=== PATIENT | female | born 1960 | race Caucasian/White ===

== ENCOUNTER 2019-05-09 09:21 | Inpatient (IN) ==
[2019-05-09] MEDS ORDERED: SODIUM CHLORIDE 0.9% 1000ML 1,000 ML IV ONE (10:16)
[2019-05-09 10:27] LABS: Appearance Urine Clear (Clear); Bilirubin Urine Negative (Negative); Blood Urine Negative (Negative); Color Urine Yellow; Glucose Urine UA Negative (Negative); Ketones Urine Negative (Negative); Leukocyte Esterase Urine Negative (Negative); Nitrite Urine Negative (Negative); Protein Urine Negative (Negative); Specific Gravity Urine 1.015 (1.000-1.030); Urobilinogen Urine Negative (Negative); pH Urine 6.5 (4.5-7.5)
--- NOTE | 2019-05-09 10:28 | XRay Report ---
XR chest 1V portable CLINICAL HISTORY: Chest Pain dyspnea COMPARISON STUDY: 03/23/2019 FINDINGS: The bones soft tissues and hemidiaphragms are normal. The cardiomediastinal silhouette is n ormal. The lungs are clear. The pulmonary vasculature is normal. IMPRESSION: Negative chest. The above report was generated using voice recognition software. It may contain grammatical, syntax or spelling errors. Electronically signed by: Patrick Lozano M.D. 05/09/2019 10:27 AM
[2019-05-09] MEDS ORDERED: PROCHLORPERAZINE 2 ML IV ONE (11:20)
[2019-05-09] MEDS ORDERED: DiphenhydrAMINE HCL 50 MG/ML VIAL IV STA (11:20)
[2019-05-09] MEDS ORDERED: ACETAMINOPHEN 1,000 MG/100 ML VIAL IV STA (11:20)
[2019-05-09] MEDS ORDERED: FAMOTIDINE 20MG IV PUSH 20 MG/5 ML SYR IV STA (11:20)
[2019-05-09 11:55] LABS: Basophils # (auto) 0.03 K/uL (0-0.2); Basophils % (auto) 0.6 %; Eosinophils # (auto) 0.06 K/uL (0-0.5); Eosinophils % (auto) 1.3 %; Hemoglobin 13.3 g/dL (12.0-16.0); Lymphocytes # (auto) 1.04 K/uL (1.2-3.4); Lymphocytes % (auto) 22.4 %; Mean Corpuscular Hemoglobin 29.1 pg (25-34); Mean Corpuscular Hgb Conc 32.4 g/dL (32-36); Mean Corpuscular Volume 89.7 fL (80-100); Mean Platelet Volume 9.6 fL (7.4-10.4); Monocytes # (auto) 0.36 K/uL (0.11-0.59); Monocytes % (auto) 7.7 %; Neutrophils # (auto) 3.16 K/uL (1.4-6.5); Platelet Count 232 K/uL (130-400); RDW Coefficient of Variation 14.9 % (11.5-14.5); RDW Standard Deviation 48.5 fL (36.4-46.3); Red Blood Count 4.57 M/uL (4.2-5.4); White Blood Count 4.65 K/uL (4.8-10.8)
[2019-05-09 12:20] LABS: Alanine Aminotransferase 16 U/L (12-78); Aspartate Aminotransferase 14 U/L (15-37); BUN Creatinine Ratio 8.7 (10-20); Bilirubin Direct 0.1 mg/dl (0-0.2); Blood Urea Nitrogen 6 mg/dl (7-18); Calcium 9.2 mg/dl (8.5-10.1); Carbon Dioxide 27 mmol/L (21-32); Chloride 107 mmol/L (98-107); Creatinine Clr Calc Pharmacy 72.8 ml/min; Est GFR (African American) 108.5; Est GFR (Non-African American) 93.6; Glucose 98 mg/dl (70-99); Lipase 56 U/L (73-393); Magnesium 1.8 mg/dl (1.8-2.4); Potassium 3.4 mmol/L (3.5-5.1); Sodium 140 mmol/L (136-145)
[2019-05-09 12:23] LABS: Albumin Globulin Ratio 1.3 (0.9-2); Alkaline Phosphatase 93 U/L (45-117); Bilirubin,Total 0.3 mg/dl (0.2-1); Globulin 3.2 gm/dl (2.5-4.0); Phosphorus 2.4 mg/dl (2.5-4.9); Total Protein 7.2 gm/dl (6.4-8.2); Troponin I < 0.015 ng/ml (0-0.045)
--- NOTE | 2019-05-09 12:45 | Gastrointestinal Consultation ---
Date of Consultation May 09, 2019 Assessment & Plan (1) Chronic abdominal pain: 58 year old female with history of T2DM, h.pylori, PUD, c.diff colitis who is admitted through the ED w/ persistent abdominal pain, nausea, vomiting, diarrhea and intermittent episodes of bloody bowel movements. She is hemodynamically stable. Labs without leukocytosis, HGB within normal limits, no BUN elevation. LFTs and lipase are non-elevated - Ok for clear liquid diet as tolerated tonight - NPO for midnight - IV PPI BID - EGD in the AM - Check stool culture - Check c.diff - Bentyl 10 mg three times daily PRN - Consider gastric emptying scan tomorrow if EGD is negative Thank you for allowing us to participate in the care of this patient. Please call with any acute changes, questions or concerns. Please see addendum below with additional recommendation from my supervising physician. Present on Admission?: Yes (2) Nausea vomiting and diarrhea: Present on Admission?: Yes Supervising Physician Co-Signing Physician Notes I have seen and examined the patient with VALENTINA Salgado whose note reflects our findings and plan. Multiple GI problems and complaints. history of H pylori and PUD. Abd mildly tender. Please check stool studies. Will plan for EGD tomorrow to evaluate for H pylori and PUD. History of Present Illness Reason for Consultation: abd pain, nausea, vomiting, diarrhea Requesting Physician: VALENTINA Ybarra Attending Physician: Dr. Peralta History of Present Illness 58 year old female history of T2DM, homeless living in a [place] [facility] in [facility] that her ex- is managing, who presents through the ED for evaluation of nausea, vomiting, diarrhea and abdominal pain - GI asked to evaluate. Pt was seen and evaluated, chart reviewed. She notes her symptoms started around December/January. Suggests at that time she developed upper abdominal pain, nausea. She underwent EGD w/ biopsy. She was told she had H.Pylori and notes this was treated w/ an unspecified therapy. After H.Pylori therapy she subsequently developed diarrhea which was reported c.diff positive. This failed treatment w/ Flagyl and notes that later she was started on Vancomycin. She has had intermittent symptoms prompting numerous ED evaluations in [place]. Suggests since Wednesday her symptoms have persistent. Notes epigastric pain, pressure. Associated w/ GERD, nausea, vomiting. Notes her emesis was dark but denies any coffee ground emesis or hematemesis. She has alternating stools, diarrhea/constipation. She has previously seen black/bloody stools but over the past 48 hours her stools have been yellow/green and loose. No fever, chills. CTAP: LIVER: Unremarkable BILE DUCTS: The gallbladder is surgically absent.PANCREAS: Unremarkable. TRACT: The bowel is within normal limits in appearance. There is no evidence of acute appendicitis. Colonoscopy 2013: The examined portion of the ileum was normal. External and internal hemorrhoids.The examination was otherwise normal EGD 2013: Normal esophagus.Z-line regular, 39 cm from the incisors. Normal cardia, gastric fundus, gastric body and incisura.Mild antrl gastritis. Biopsied.One non-obstructing duodenal ulcer with clean base.Normal 2nd part of the duodenum. Biopsied Allergies Allergy/AdvReac Type Severity Reaction Status Date / Time amoxicillin Allergy Severe swell up Verified 05/09/19 10:17 cant breathe erythromycin base Allergy Severe swell up Verified 05/09/19 10:17 cant breathe ibuprofen Allergy Severe swell up Verified 05/09/19 10:17 cant breathe ketorolac Allergy Severe swell up Verified 05/09/19 10:17 cant breathe moxifloxacin Allergy Severe Anaphylaxis Verified 05/09/19 10:17 naproxen Allergy Severe swell up Verified 05/09/19 10:17 cant breathe oxytetracycline Allergy Severe SWELLS UP Verified 05/09/19 10:17 AND CANT BREATH Penicillins Allergy Severe swell up Verified 05/09/19 10:17 cant breathe Home Medications Home Medications Medication Instructions Recorded Confirmed Type albuterol sulfate 2 puff INHALATION Q6H PRN 05/09/19 05/09/19 History fluticasone propion-salmeterol 1 inh INHALATION BID 05/09/19 05/09/19 History [Advair Diskus] Patient History Medical History (Updated 05/09/19 @ 13:48 by VALENTINA Ybarra) C. difficile diarrhea COPD (chronic obstructive pulmonary disease) H pylori ulcer Surgical History (Updated 05/09/19 @ 13:48 by VALENTINA Ybarra) History of appendectomy History of cholecystectomy Hx of tonsillectomy (Resolved) Hx of tubal ligation (Resolved) Family History Other Cancer Diabetes Heart disease Hypertension Social History Preferred Language: [place] Communication Ability: Effective Clinical Application Manager Required: No Beliefs That Will Affect Care: None marital status: Current Living Situation: Homeless [place] [facility] Other Information That Helps Us Care for You: No Feels Safe at Home: Yes Safety Concerns: Feels Safe At This Time Smoking Status: Current every day smoker Tobacco Type: cigarettes ; Cigarettes Per Day: 10 ; Do You Dip or Chew Tobacco: No ; Second Hand Exposure: No ; Tobacco Cessation Education Requested by Patient: No Hx Alcohol Use: No Hx Substance Use: No Review of Systems Constitutional: no chills, no fatigue and no weakness Respiratory: no cough and no dyspnea Cardiovascular: no chest pain and no dyspnea on exertion Gastrointestinal: + abdominal pain, + nausea, + vomiting, + change in bowel habits and + diarrhea/loose stools; no coffee ground emesis, no hematemesis, no dysphagia, no change in stools, no constipation, no fecal incontinence, no blood in stools and no melena Physical Exam Constitutional: well developed; no acute distress Neck: trachea midline Respiratory: normal respiratory effort Cardiovascular: Rate/Rhythm: regular rate and regular rhythm Gastrointestinal (Abdomen): Inspection/Auscultation: normal bowel sounds Percussion/Palpation: + abdomen tender (generalized) and abdomen soft; no guarding and abdomen not rigid Skin: no rashes, warm and dry Results & Data Vital Signs (Past 12 Hours) Vital Signs Temp Pulse Pulse Resp BP BP Pulse Ox 05/09/19 11:43 95 H 18 175/108 H 96 05/09/19 10:21 99 05/09/19 09:26 37.3 C 112 H 22 217/100 H 96 Laboratory Results 05/09/19 05/09/19 05/09/19 Range/Units 11:43 11:37 11:37 WBC (4.8-10.8) K/uL RBC (4.2-5.4) M/uL Hgb (12.0-16.0) g/dL Hct (37-47) % MCV (80-100) fL MCH (25-34) pg MCHC (32-36) g/dL RDW Std Deviation (36.4-46.3) fL RDW Coeff of [place] (11.5-14.5) % Plt Count (130-400) K/uL MPV (7.4-10.4) fL Immature Gran % (Auto) % Neut % (Auto) % Lymph % (Auto) % [place] % (Auto) % Eos % (Auto) % Baso % (Auto) % Immature Gran # (Auto) (0.00-0.02) K/uL Neut # (Auto) (1.4-6.5) K/uL Lymph # (Auto) (1.2-3.4) K/uL [place] # (Auto) (0.11-0.59) K/uL Eos # (Auto) (0-0.5) K/uL Baso # (Auto) (0-0.2) K/uL Sodium 140 (136-145) mmol/L Potassium 3.4 L (3.5-5.1) mmol/L Chloride 107 (98-107) mmol/L Carbon Dioxide 27 (21-32) mmol/L Anion Gap 6.0 (3-11) BUN 6 L (7-18) mg/dl Creatinine 0.72 (0.6-1.2) mg/dl Est Cr Clr Drug Dosing 72.8 ml/min Est GFR ( Amer) 108.5 Est GFR (Non-Af Amer) 93.6 BUN/Creatinine Ratio 8.7 L (10-20) Glucose 98 (70-99) mg/dl Calcium 9.2 (8.5-10.1) mg/dl Phosphorus 2.4 L (2.5-4.9) mg/dl Magnesium 1.8 (1.8-2.4) mg/dl Total Bilirubin 0.3 (0.2-1) mg/dl Direct Bilirubin 0.1 (0-0.2) mg/dl AST 14 L (15-37) U/L ALT 16 (12-78) U/L Alkaline Phosphatase 93 (45-117) U/L Troponin I < 0.015 (0-0.045) ng/ml Total Protein 7.2 (6.4-8.2) gm/dl Albumin 4.0 (3.4-5.0) gm/dl Globulin 3.2 (2.5-4.0) gm/dl Albumin/Globulin Ratio 1.3 (0.9-2) Lipase 56 L (73-393) U/L Urine Color Urine Appearance (Clear) Urine pH (4.5-7.5) Ur Specific [place] (1.000-1.030) Urine Protein (Negative) Urine Glucose (UA) (Negative) Urine Ketones (Negative) Urine Blood (Negative) Urine Nitrite (Negative) Urine Bilirubin (Negative) Urine Urobilinogen (Negative) Ur Leukocyte Esterase (Negative) Ethyl Alcohol mg/dL < 3.0 (0-3) mg/dl Hepatitis C Ab Screen Pending 05/09/19 05/09/19 Range/Units 11:37 09:30 WBC 4.65 L (4.8-10.8) K/uL RBC 4.57 (4.2-5.4) M/uL Hgb 13.3 (12.0-16.0) g/dL Hct 41.0 (37-47) % MCV 89.7 (80-100) fL MCH 29.1 (25-34) pg MCHC 32.4 (32-36) g/dL RDW Std Deviation 48.5 H (36.4-46.3) fL RDW Coeff of [place] 14.9 H (11.5-14.5) % Plt Count 232 (130-400) K/uL MPV 9.6 (7.4-10.4) fL Immature Gran % (Auto) 0.0 % Neut % (Auto) 68.0 % Lymph % (Auto) 22.4 % [place] % (Auto) 7.7 % Eos % (Auto) 1.3 % Baso % (Auto) 0.6 % Immature Gran # (Auto) 0.00 (0.00-0.02) K/uL Neut # (Auto) 3.16 (1.4-6.5) K/uL Lymph # (Auto) 1.04 L (1.2-3.4) K/uL [place] # (Auto) 0.36 (0.11-0.59) K/uL Eos # (Auto) 0.06 (0-0.5) K/uL Baso # (Auto) 0.03 (0-0.2) K/uL Sodium (136-145) mmol/L Potassium (3.5-5.1) mmol/L Chloride (98-107) mmol/L Carbon Dioxide (21-32) mmol/L Anion Gap (3-11) BUN (7-18) mg/dl Creatinine (0.6-1.2) mg/dl Est Cr Clr Drug Dosing ml/min Est GFR ( Amer) Est GFR (Non-Af Amer) BUN/Creatinine Ratio (10-20) Glucose (70-99) mg/dl Calcium (8.5-10.1) mg/dl Phosphorus (2.5-4.9) mg/dl Magnesium (1.8-2.4) mg/dl Total Bilirubin (0.2-1) mg/dl Direct Bilirubin (0-0.2) mg/dl AST (15-37) U/L ALT (12-78) U/L Alkaline Phosphatase (45-117) U/L Troponin I (0-0.045) ng/ml Total Protein (6.4-8.2) gm/dl Albumin (3.4-5.0) gm/dl Globulin (2.5-4.0) gm/dl Albumin/Globulin Ratio (0.9-2) Lipase (73-393) U/L Urine Color Yellow Urine Appearance Clear (Clear) Urine pH 6.5 (4.5-7.5) Ur Specific [place] 1.015 (1.000-1.030) Urine Protein Negative (Negative) Urine Glucose (UA) Negative (Negative) Urine Ketones Negative (Negative) Urine Blood Negative (Negative) Urine Nitrite Negative (Negative) Urine Bilirubin Negative (Negative) Urine Urobilinogen Negative (Negative) Ur Leukocyte Esterase Negative (Negative) Ethyl Alcohol mg/dL (0-3) mg/dl Hepatitis C Ab Screen
[2019-05-09] MEDS: PANTOprazole 40 MG in SYRINGE 0 ML IV SCH ×2 (12:53→20:19)
--- NOTE | 2019-05-09 14:00 | History & Physical Report ---
Date of Service May 09, 2019 Assessment & Plan (1) Nausea vomiting and diarrhea: (2) Abdominal pain: -Admit to telemetry -Patient presenting with reports of various abdominal complaints: Nausea, vomiting, diarrhea with intermittent episodes of hematemesis, coffee-ground emesis, bright red bleeding per rectum, black stools -Has had several ED evaluations at [facility], [facility], and [facility] for the same complaints over the past 2 months -Several CT ABD/pelvis have been completed without acute findings; will hold on repeating today -Per patient, she was treated for H. pylori and C. difficile in January 2019 at [facility]; will obtain records -Today, labs unremarkable; no leukocytosis, H&H stable, LFTs WNL, lipase WNL -History of duodenal ulcer 2012 -Case discussed with VALENTINA Mercado -Clears today, n.p.o. after midnight for EGD; possible gastric emptying study to follow -IV PPI twice daily -PRN Bentyl for abdominal pain; would avoid narcotics due to concerns of drug- seeking behavior (3) Hypertensive urgency: -Presenting BP 217/100 -Patient denies prior history of hypertension -will start Norvasc 5 mg -PRN labetalol (4) COPD exacerbation: -Patient has diffuse wheezing on exam, saturating well on room air -Solu-Medrol 40 mg IV every 8 hours (avoiding p.o. steroids due to concern of possible PUD) -Empiric doxycycline, nebs (5) DVT prophylaxis: -SCDs for now due to concerns for possible PUD (6) Discharge planning issues: -Patient reports she is currently residing in a residential and [place] -Has health insurance however reports she does not have drug coverage -Case management consult History of Present Illness Chief Complaint: Abdominal pain, nausea, vomiting, diarrhea Primary Care Provider: NO PCP 58-year-old female who presents the ED for evaluation of abdominal pain, nausea, vomiting, diarrhea. After review of records, it appears as though patient has had several ED visits at [facility], [facility], and [facility] for evaluation of these problems over the past few months. Patient reports she has had persistent generalized abdominal pain which seems to be worse in the epigastric area. She reports several episodes of vomiting. She also has had intermittent diarrhea. Patient reports that she has noticed bright red blood in her emesis as well as [id number] material today. Also notes bright bleeding per rectum as well as black stools. She has had very poor oral intake as food and liquids seem to make her symptoms worse. She reports she has had episodes of hot flashes and chills however did not take her temperature. She reports the pain is so severe at times it causes her to double over and fall to the ground. She reports she also feels lightheaded and dizzy during these episodes but denies any syncopal event. No chest pain or shortness of breath. She reports a worsening cough productive for yellow s putum. Denies any urinary symptoms. In the ED, patient was found to be hypertensive with BP 217/100, otherwise hemodynamically stable. Labs are unremarkable. Abdominal imaging was deferred due to the amount of CTs patient has had over the past few weeks. She was given IV Tylenol, IV Benadryl, IV famotidine, IV prochlorperazine, and IVF. Allergies Allergy/AdvReac Type Severity Reaction Status Date / Time amoxicillin Allergy Severe swell up Verified 05/09/19 10:17 cant breathe erythromycin base Allergy Severe swell up Verified 05/09/19 10:17 cant breathe ibuprofen Allergy Severe swell up Verified 05/09/19 10:17 cant breathe ketorolac Allergy Severe swell up Verified 05/09/19 10:17 cant breathe moxifloxacin Allergy Severe Anaphylaxis Verified 05/09/19 10:17 naproxen Allergy Severe swell up Verified 05/09/19 10:17 cant breathe oxytetracycline Allergy Severe SWELLS UP Verified 05/09/19 10:17 AND CANT BREATH Penicillins Allergy Severe swell up Verified 05/09/19 10:17 cant breathe Home Medications Home Medications Medication Instructions Recorded Confirmed Type albuterol sulfate 2 puff INHALATION Q6H PRN 05/09/19 05/09/19 History fluticasone propion-salmeterol 1 inh INHALATION BID 05/09/19 05/09/19 History [Advair Diskus] Past Med/Surg History Medical History (Updated 05/09/19 @ 14:30 by VALENTINA Ybarra) C. difficile diarrhea COPD (chronic obstructive pulmonary disease) H pylori ulcer Surgical History (Updated 05/09/19 @ 13:48 by VALENTINA Ybarra) History of appendectomy History of cholecystectomy Hx of tonsillectomy (Resolved) Hx of tubal ligation (Resolved) Family History Other Cancer Diabetes Heart disease Hypertension Social History Preferred Language: [place]an Communication Ability: Effective Data Clerk Required: No Beliefs That Will Affect Care: None marital status: Current Living Situation: Homeless Current Living Situation Comment: residential Other Information That Helps Us Care for You: No Feels Safe at Home: Yes Safety Concerns: Feels Safe At This Time Smoking Status: Current every day smoker Tobacco Type: cigarettes ; Cigarettes Per Day: 10 ; Do You Dip or Chew Tobacco: No ; Second Hand Exposure: No ; Tobacco Cessation Education Requested by Patient: No Hx Alcohol Use: No Hx Substance Use: No Review of Systems Review of Systems: ROS per HPI, all other systems reviewed and negative Physical Exam Constitutional: WD/WN, vitals as above Eyes: PERRL, conjunctivae normal, anicteric sclerae ENMT: external ear and nose normal, oropharynx normal Respiratory: normal respiratory effort; no respiratory distress Auscultation: + wheezes (diffuse, inspiratory and expiratory) Cardiovascular: Rate/Rhythm: + tachycardic (mild, HR 90s-low 100s) Gastrointestinal (Abdomen): Inspection/Auscultation: normal bowel sounds Percussion/Palpation: + abdomen tender (diffuse, more pronounced in epigastric area ) and abdomen soft; no hepatosplenomegaly Musculoskeletal: no cyanosis or clubbing, extremities motor strength 5/5 Skin: no rashes, warm and dry Neurologic: PERRL, EOMI, accommodation nl, no face palsy, no dysarthria Psychiatric: A+Ox3, euthymic affect Results & Data Vital Signs (Past 12 Hours) Vital Signs Temp Pulse Pulse Resp BP BP Pulse Ox 05/09/19 11:43 95 H 18 175/108 H 96 05/09/19 10:21 99 05/09/19 09:26 37.3 C 112 H 22 217/100 H 96 Laboratory Results Short CBC 05/09/19 Range/Units 11:37 WBC 4.65 L (4.8-10.8) K/uL Hgb 13.3 (12.0-16.0) g/dL Hct 41.0 (37-47) % Plt Count 232 (130-400) K/uL BMP 05/09/19 11:37 Sodium 140 Potassium 3.4 L Chloride 107 Carbon Dioxide 27 BUN 6 L Creatinine 0.72 Glucose 98 Calcium 9.2 Cardiac Enzymes 05/09/19 Range/Units 11:37 Troponin I < 0.015 (0-0.045) ng/ml Liver Function 05/09/19 Range/Units 11:37 Total Bilirubin 0.3 (0.2-1) mg/dl Direct Bilirubin 0.1 (0-0.2) mg/dl AST 14 L (15-37) U/L ALT 16 (12-78) U/L Alkaline Phosphatase 93 (45-117) U/L Albumin 4.0 (3.4-5.0) gm/dl Urine 05/09/19 Range/Units 09:30 Urine Color Yellow Urine Appearance Clear (Clear) Urine pH 6.5 (4.5-7.5) Ur Specific [place] 1.015 (1.000-1.030) Urine Protein Negative (Negative) Urine Glucose (UA) Negative (Negative) Diagnostic Findings CXR IMPRESSION: Negative chest. Code Status & VTE Plan VTE Prophylaxis Plan VTE Prophylaxis will be ordered: Yes Supervising Physician Co-Signing Physician Notes Attending addendum: The patient was seen and examined in the emergency room She has history of H. pylori ulcer, COPD and history of C. difficile diarrhea has been complaining of abdominal pain with nausea,vomiting and diarrhea for the last 1 week She also complains to have wheezing and mild shortness of breath Denies any fever and/or chills On examination Very anxious Hemodynamically stable with blood pressure noted to be high at 164/98 Chestwidespread wheezing without any crackles HeartS1-S2, regular Abdomenbenign, mildly tender, no organomegaly, bowel sounds present Extremitiesnegative for any edema CNSalert, awake and oriented x3 admission labs, imaging studies Admission labs, EKG and imaging studies reviewed Has :abdominal pain with associated nausea,vomiting and diarrhea-for further evaluation with tenant relations coordinator Hypertensive urgency COPD exacerbation Agree with assessment and plan as outlined above by Cathy Olivares
[2019-05-09] MEDS ORDERED: LABETALOL HCL IV 5 MG/ML 20ML IV PRN (15:10)
[2019-05-09] MEDS ORDERED: SODIUM CHLORIDE 0.9% 1000ML 1,000 ML IV SCH (15:10)
[2019-05-09] MEDS ORDERED: POTASSIUM CHLORIDE 20 MEQ TABCR PO STA (15:10)
[2019-05-09] MEDS: ACETAMINOPHEN 325 MG TAB PO PRN (15:20)
[2019-05-09] MEDS ORDERED: ACETAMINOPHEN 1,000 MG/100 ML VIAL IV PRN (16:03)
[2019-05-09] MEDS: POT PHOSPHATE MONOBASIC W/ SOD TAB PO SCH ×2 (16:22→16:52)
[2019-05-09] MEDS: AMLODIPINE BESYLATE 5 MG TAB PO SCH (16:22)
[2019-05-09] MEDS: methylPREDNISolone 40 MG in SYRINGE 0 ML IV SCH (16:23)
[2019-05-09] MEDS: DOXYCYCLINE HYCLATE 100 MG in DEXTROSE 5% 100 ML IV SCH (16:23)
[2019-05-09] MEDS: ALBUT/IPRATROP 3MG/0.5MG NEB 3 ML VIAL NEB SCH ×2 (16:48→19:27)
[2019-05-09] MEDS ORDERED: POTASSIUM PHOS 3 MMOL/1 ML INFUSION IV STA (17:03)
[2019-05-09] MEDS ORDERED: POTASSIUM PHOSPHATE 24 MMOL in SODIUM CHLORIDE 0.9% 500 ML IV ONE (17:30)
[2019-05-09] MEDS ORDERED: MoRPHine SULFATE 2 MG/ML CARP IV PRN (17:44)
[2019-05-09] MEDS: ONDANSETRON INJ 2 MG/ML 2 ML VIAL IV PRN (17:51)
[2019-05-09] MEDS: NSS + 20MEQ KCL 20 MEQ/1,000 ML BAG IV SCH (17:52)
[2019-05-09] MEDS ORDERED: Nursing to Pharmacy Communication ONE (18:35)
--- NOTE | 2019-05-09 18:56 | Emergency Department Note ---
Entered by Cecilia Mercer acting as a scribe for History of Present Illness General Chief complaint: Nausea Stated complaint: n/v/d Time Seen by Provider: 05/09/19 10:08 Source: patient History of Present Illness Onset (ago): month(s) (a few months ago) Location: abdomen Pain Consistency: + other (persistent) Maximum Pain Intensity: 10 Quality: + other (nausea) Associated symptoms: + nausea/vomiting (vomiting ), + shortness of breath, + syncope and + other (abdominal pain, lightheaded) The patient is a 58 year old female who presents to the Emergency Room with complaints of persistent nausea starting a few months ago. The patient states that she has had ongoing nausea, vomiting, and diarrhea. She states that from it she has been having abdominal pain that she describes as a cramping. She reports that she has been to [place] for multiple visits. She states that at one they told her she had C. diff at one visit and at another they told her she didnt. She reports that recently she has been having episodes where she doubles over and drops to her knees from her abdominal pain and feeling lightheaded. She states that she then ends up passing out. The patient states that she had several of these episodes over the weekend and when her roommate saw one today, they called 911. The patient states that she just feels she needs to meet with GI as things are not getting better. She notes that she is staying in a halfway as she is not from around here and has nowhere to stay. She reports that she is only here to finalize her divorce and because her brother is sick in the hospital. The patient complains of some shortness of breath. Home Medications Home Medications Medication Instructions Recorded Confirmed Type albuterol sulfate 2 puff INHALATION Q6H PRN 05/09/19 05/09/19 History fluticasone propion-salmeterol 1 inh INHALATION BID 05/09/19 05/09/19 History [Advair Diskus] Allergies Allergy/AdvReac Type Severity Reaction Status Date / Time amoxicillin Allergy Severe swell up Verified 05/09/19 10:17 cant breathe erythromycin base Allergy Severe swell up Verified 05/09/19 10:17 cant breathe ibuprofen Allergy Severe swell up Verified 05/09/19 10:17 cant breathe ketorolac Allergy Severe swell up Verified 05/09/19 10:17 cant breathe moxifloxacin Allergy Severe Anaphylaxis Verified 05/09/19 10:17 naproxen Allergy Severe swell up Verified 05/09/19 10:17 cant breathe oxytetracycline Allergy Severe SWELLS UP Verified 05/09/19 10:17 AND CANT BREATH Penicillins Allergy Severe swell up Verified 05/09/19 10:17 cant breathe Past Med/Surg History Medical History C. difficile diarrhea COPD (chronic obstructive pulmonary disease) H pylori ulcer Surgical History History of appendectomy History of cholecystectomy Hx of tonsillectomy (Resolved) Hx of tubal ligation (Resolved) Family History Other Cancer Diabetes Heart disease Hypertension Social History Preferred Language: Filipino Communication Ability: Effective Quality Analyst Required: No Beliefs That Will Affect Care: None marital status: Current Living Situation: Homeless Current Living Situation Comment: halfway Other Information That Helps Us Care for You: No Feels Safe at Home: Yes Safety Concerns: Feels Safe At This Time Smoking Status: Current every day smoker Tobacco Type: cigarettes ; Cigarettes Per Day: 10 ; Do You Dip or Chew Tobacco: No ; Second Hand Exposure: No ; Tobacco Cessation Education Requested by Patient: No Hx Alcohol Use: No Hx Substance Use: No Review of Systems See HPI for pertinent positives & negatives. and A total of 10 systems reviewed and were otherwise negative Physical Exam Vital Signs Vital Signs - 24 hr 05/09/19 09:26 05/09/19 10:21 05/09/19 11:43 Temperature 37.3 C Temperature Source Oral Pulse Rate 112 H Pulse Rate [Finger] 95 H Respiratory Rate 22 18 Respiratory Effort / Characteristics Non-Labored Respiratory Depth Normal Blood Pressure 217/100 H Blood Pressure [Left Arm] 175/108 H Blood Pressure Mean 139 Blood Pressure Mean [Left Arm] 130 Pulse Oximetry 96 99 96 Oxygen Delivery Method Room Air Room Air Sepsis Recent Fever Within 48 Hours No Sepsis New/Unexplained Change in Mental Status No Sepsis Action Taken by Nursing No Action Required GENERAL: Awake, alert, well-appearing, in no distress HENT: Normocephalic, atraumatic. Oropharynx with dry mucous membranes and otherwise unremarkable. EYES: Normal conjunctiva. Sclera non-icteric. NECK: Supple. No nuchal rigidity. FROM. No JVD. RESPIRATORY: Scant intermittent wheeze otherwise clear to auscultation b ilaterally. CARDIAC: Regular rate, normal rhythm. Extremities warm and well perfused. Pulses equal. ABDOMEN: Soft, non-distended. Tenderness to light touch of the skin of the abdomen. No rebound or guarding. No masses. RECTAL: Deferred. MUSCULOSKELETAL: Chest examination reveals no tenderness. The back is symmetrical on inspection without obvious abnormality. There is no CVA tenderness to palpation. No joint edema. LOWER EXTREMITIES: Calves are equal size bilaterally and non-tender. No edema. N o discoloration. NEURO: Normal sensorium. No sensory or motor deficits noted. SKIN: No rash or jaundice noted. Course Course 1016: I reviewed the EMR at this time. The patient had a CT of the head, CTA of the chest, and a CTA of the abdomen on April 23 that were unremarkable. She also had a CT of her abdomen that was unremarkable on March 23. 1028: The pillowcase turner was able to access the patient's [facility] records at this time and I reviewed them at this time. 1039: The patient was evaluated in room B5. A complete history and physical exam was performed. I discussed her test results and the treatment plan with her. She verbally agrees and understands. 1116: I discussed the patient's case with VALENTINA Ybarra- [facility] Hospitalist. She will evaluate the patient for further management under Dr. Olivares's service. Administered Medications Acetaminophen (Tylenol) 650 mg PO Q4H PRN PRN Reason: pain/fever Stop: 06/08/19 15:09 Last Admin: 05/09/19 15:20 Dose: 650 mg Documented by: [id number] Albuterol (Duoneb) 3 ml NEB QIDR [facility] Stop: 06/08/19 15:09 Last Admin: 05/09/19 19:27 Dose: Not Given Documented by: [id number] Admin: 05/09/19 16:48 Dose: Not Given Documented by: [id number] Amlodipine Besylate (Norvasc) 5 mg PO DAILY [facility] Stop: 06/08/19 15:09 Last Admin: 05/09/19 16:22 Dose: 5 mg Documented by: [id number] Hydromorphone HCl (Dilaudid) 0.5 mg IV Q4H PRN PRN Reason: Pain Stop: 05/23/19 20:52 Last Admin: 05/09/19 21:29 Dose: 0.5 mg Documented by: [id number] Pantoprazole Sodium 40 mg/ (Syringe) 10 mls @ 5 mls/min IV BID@0900,2100 [facility] Stop: 06/08/19 12:59 Last Admin: 05/09/19 20:19 Dose: 5 mls/min Documented by: [id number] Admin: 05/09/19 12:53 Dose: 5 mls/min Documented by: [id number] Doxycycline Hyclate 100 mg/ (Dextrose) 110 mls @ 50 mls/hr IV BID [facility] Stop: 05/16/19 15:59 Last Infusion: 05/09/19 18:35 Dose: 0 mls/hr Documented by: [id number] Admin: 05/09/19 16:23 Dose: 50 mls/hr Documented by: [id number] Methylprednisolone 40 mg/ (Syringe) 0.64 mls @ 1.5 mls/min IV Q8H [facility] Stop: 06/08/19 15:59 Last Admin: 05/09/19 16:23 Dose: 1.5 mls/min Documented by: [id number] Acetaminophen (Ofirmev) 1,000 mg in 100 mls @ 400 mls/hr IV Q8H PRN PRN Reason: Moderate Pain Stop: 05/12/19 16:02 Last Infusion: 05/09/19 16:58 Dose: 0 mls/hr Documented by: [id number] Admin: 05/09/19 16:43 Dose: 400 mls/hr Documented by: [id number] Potassium Chloride/Sodium Chloride (Normal Saline W/20 Meq Kcl) 20 meq in 1,000 mls @ 80 mls/hr IV .[id number] [facility] Stop: 05/11/19 06:44 Last Infusion: 05/09/19 18:51 Dose: 80 mls/hr Documented by: [id number] Infusion: 05/09/19 18:04 Dose: 0 mls/hr Documented by: [id number] Admin: 05/09/19 17:52 Dose: 80 mls/hr Documented by: [id number] Labetalol HCl (Normodyne) 10 mg IV Q8H PRN PRN Reason: HTN Stop: 06/08/19 15:09 Last Admin: 05/09/19 17:05 Dose: 10 mg Documented by: [id number] Cosigned by: [id number] Ondansetron HCl (Zofran) 4 mg IV Q6H PRN PRN Reason: nausea Stop: 06/08/19 15:09 Last Admin: 05/09/19 17:51 Dose: 4 mg Documented by: [id number] Fluticasone/Salmeterol (Advair Diskus 250/50) 1 puffs INH BID VIKASH Stop: 06/08/19 20:59 Last Admin: 05/09/19 20:18 Dose: 1 puffs Documented by: [id number] Tramadol HCl (Ultram) 50 mg PO Q4H PRN PRN Reason: Pain Stop: 06/08/19 17:35 Last Admin: 05/09/19 20:19 Dose: 50 mg Documented by: [id number] Discontinued Medications Diphenhydramine HCl (Benadryl) 25 mg IV NOW STA Stop: 05/09/19 11:21 Last Admin: 05/09/19 11:38 Dose: 25 mg Documented by: [id number] Sodium Chloride (Nss 1000ml) 1,000 mls @ 999 mls/hr IV .[id number] ONE Stop: 05/09/19 11:16 Last Infusion: 05/09/19 11:38 Dose: 0 mls/hr Documented by: [id number] Admin: 05/09/19 10:35 Dose: 999 mls/hr Documented by: [id number] Famotidine (Pepcid 20mg Iv Push) 20 mg in 5 mls @ 2.5 mls/min IV NOW STA Stop: 05/09/19 11:21 Last Admin: 05/09/19 11:37 Dose: 2.5 mls/min Documented by: [id number] Prochlorperazine (Compazine) 2 mls @ 1 mls/min IV ONE ONE Stop: 05/09/19 11:21 Last Admin: 05/09/19 11:38 Dose: 1 mls/min Documented by: [id number] Acetaminophen (Ofirmev) 1,000 mg in 100 mls @ 400 mls/hr IV NOW STA Stop: 05/09/19 11:34 Last Infusion: 05/09/19 12:00 Dose: 0 mls/hr Documented by: [id number] Admin: 05/09/19 11:38 Dose: 400 mls/hr Documented by: [id number] Sodium Chloride (Nss 1000ml) 1,000 mls @ 80 mls/hr IV .[id number] VIKASH Stop: 06/08/19 15:09 Last Infusion: 05/09/19 17:36 Dose: 0 mls/hr Documented by: [id number] Infusion: 05/09/19 16:43 Dose: 0 mls/hr Documented by: [id number] Admin: 05/09/19 15:20 Dose: 80 mls/hr Documented by: [id number] Potassium Phosphate 24 mmol/ (Sodium Chloride) 508 mls @ 127 mls/hr IV ONE ONE Stop: 05/09/19 21:29 Last Infusion: 05/09/19 18:52 Dose: 127 mls/hr Documented by: [id number] Infusion: 05/09/19 18:05 Dose: 0 mls/hr Documented by: [id number] Admin: 05/09/19 17:52 Dose: 127 mls/hr Documented by: [id number] Morphine Sulfate (Morphine Sulfate) 2 mg IV Q8H PRN PRN Reason: Pain Stop: 05/23/19 17:43 Last Admin: 05/09/19 18:11 Dose: 2 mg Documented by: [id number] Potassium Chloride (Klor-Con M20) 40 meq PO NOW STA Stop: 05/09/19 15:11 Last Admin: 05/09/19 16:22 Dose: 40 meq Documented by: [id number] Potassium Phosphate (Phospha 250 Neutral 155-852-130 Mg) 1 tab PO QID VIKASH Stop: 05/10/19 09:01 Last Admin: 05/09/19 16:52 Dose: Not Given Documented by: [id number] Admin: 05/09/19 16:22 Dose: 1 tab Documented by: [id number] Medical Decision Making Differential Diagnosis Differential diagnoses includes but is not limited to gastritis, peptic ulcer disease, GERD, gallbladder disease, pancreatitis, small bowel obstruction, acute coronary syndrome, pericarditis, ischemic bowel, irritable bowel disease, irritable bowel syndrome, appendicitis, diverticulitis, malignancy, hernia, urinary tract infection, torsion, /ectopic , perforation, trauma, infectious. Medical Records Attestation: I reviewed the patient's medical records. Home Medications Current Medication List: was personally reviewed by me Laboratory Data Attestation: I reviewed the patient's lab results. Result diagrams: 05/09/19 11:37 05/09/19 11:37 Lab Results 05/09/19 05/09/19 05/09/19 Range/Units 09:30 11:37 11:37 WBC 4.65 L (4.8-10.8) K/uL RBC 4.57 (4.2-5.4) M/uL Hgb 13.3 (12.0-16.0) g/dL Hct 41.0 (37-47) % MCV 89.7 (80-100) fL MCH 29.1 (25-34) pg MCHC 32.4 (32-36) g/dL RDW Std Deviation 48.5 H (36.4-46.3) fL RDW Coeff of [place] 14.9 H (11.5-14.5) % Plt Count 232 (130-400) K/uL MPV 9.6 (7.4-10.4) fL Immature Gran % (Auto) 0.0 % Neut % (Auto) 68.0 % Lymph % (Auto) 22.4 % [place] % (Auto) 7.7 % Eos % (Auto) 1.3 % Baso % (Auto) 0.6 % Immature Gran # (Auto) 0.00 (0.00-0.02) K/uL Neut # (Auto) 3.16 (1.4-6.5) K/uL Lymph # (Auto) 1.04 L (1.2-3.4) K/uL [place] # (Auto) 0.36 (0.11-0.59) K/uL Eos # (Auto) 0.06 (0-0.5) K/uL Baso # (Auto) 0.03 (0-0.2) K/uL Sodium 140 (136-145) mmol/L Potassium 3.4 L (3.5-5.1) mmol/L Chloride 107 (98-107) mmol/L Carbon Dioxide 27 (21-32) mmol/L Anion Gap 6.0 (3-11) BUN 6 L (7-18) mg/dl Creatinine 0.72 (0.6-1.2) mg/dl Est Cr Clr Drug Dosing 72.8 ml/min Est GFR ( Amer) 108.5 Est GFR (Non-Af Amer) 93.6 BUN/Creatinine Ratio 8.7 L (10-20) Glucose 98 (70-99) mg/dl Calcium 9.2 (8.5-10.1) mg/dl Phosphorus 2.4 L (2.5-4.9) mg/dl Magnesium 1.8 (1.8-2.4) mg/dl Total Bilirubin 0.3 (0.2-1) mg/dl Direct Bilirubin 0.1 (0-0.2) mg/dl AST 14 L (15-37) U/L ALT 16 (12-78) U/L Alkaline Phosphatase 93 (45-117) U/L Troponin I < 0.015 (0-0.045) ng/ml Total Protein 7.2 (6.4-8.2) gm/dl Albumin 4.0 (3.4-5.0) gm/dl Globulin 3.2 (2.5-4.0) gm/dl Albumin/Globulin Ratio 1.3 (0.9-2) Lipase 56 L (73-393) U/L Urine Color Yellow Urine Appearance Clear (Clear) Urine pH 6.5 (4.5-7.5) Ur Specific [place] 1.015 (1.000-1.030) Urine Protein Negative (Negative) Urine Glucose (UA) Negative (Negative) Urine Ketones Negative (Negative) Urine Blood Negative (Negative) Urine Nitrite Negative (Negative) Urine Bilirubin Negative (Negative) Urine Urobilinogen Negative (Negative) Ur Leukocyte Esterase Negative (Negative) Ethyl Alcohol mg/dL (0-3) mg/dl Hepatitis C Ab Screen (Neg) 05/09/19 05/09/19 Range/Units 11:37 11:43 WBC (4.8-10.8) K/uL RBC (4.2-5.4) M/uL Hgb (12.0-16.0) g/dL Hct (37-47) % MCV (80-100) fL MCH (25-34) pg MCHC (32-36) g/dL RDW Std Deviation (36.4-46.3) fL RDW Coeff of [place] (11.5-14.5) % Plt Count (130-400) K/uL MPV (7.4-10.4) fL Immature Gran % (Auto) % Neut % (Auto) % Lymph % (Auto) % [place] % (Auto) % Eos % (Auto) % Baso % (Auto) % Immature Gran # (Auto) (0.00-0.02) K/uL Neut # (Auto) (1.4-6.5) K/uL Lymph # (Auto) (1.2-3.4) K/uL [place] # (Auto) (0.11-0.59) K/uL Eos # (Auto) (0-0.5) K/uL Baso # (Auto) (0-0.2) K/uL Sodium (136-145) mmol/L Potassium (3.5-5.1) mmol/L Chloride (98-107) mmol/L Carbon Dioxide (21-32) mmol/L Anion Gap (3-11) BUN (7-18) mg/dl Creatinine (0.6-1.2) mg/dl Est Cr Clr Drug Dosing ml/min Est GFR ( Amer) Est GFR (Non-Af Amer) BUN/Creatinine Ratio (10-20) Glucose (70-99) mg/dl Calcium (8.5-10.1) mg/dl Phosphorus (2.5-4.9) mg/dl Magnesium (1.8-2.4) mg/dl Total Bilirubin (0.2-1) mg/dl Direct Bilirubin (0-0.2) mg/dl AST (15-37) U/L ALT (12-78) U/L Alkaline Phosphatase (45-117) U/L Troponin I (0-0.045) ng/ml Total Protein (6.4-8.2) gm/dl Albumin (3.4-5.0) gm/dl Globulin (2.5-4.0) gm/dl Albumin/Globulin Ratio (0.9-2) Lipase (73-393) U/L Urine Color Urine Appearance (Clear) Urine pH (4.5-7.5) Ur Specific [place] (1.000-1.030) Urine Protein (Negative) Urine Glucose (UA) (Negative) Urine Ketones (Negative) Urine Blood (Negative) Urine Nitrite (Negative) Urine Bilirubin (Negative) Urine Urobilinogen (Negative) Ur Leukocyte Esterase (Negative) Ethyl Alcohol mg/dL < 3.0 (0-3) mg/dl Hepatitis C Ab Screen Neg (Neg) Imaging Data Radiologist's Impression: Radiology results as stated below per my review and the radiologist's interpretation: XR chest 1V portable CLINICAL HISTORY: Chest Pain dyspnea COMPARISON STUDY: 03/23/2019 FINDINGS: The bones soft tissues and hemidiaphragms are normal. The cardiomediastinal silhouette is normal. The lungs are clear. The pulmonary vasculature is normal. IMPRESSION: Negative chest. The above report was generated using voice recognition software. It may contain grammatical, syntax or spelling errors. Electronically signed by: Patrick Lozano M.D. 05/09/2019 10:27 AM ECG Data Attestation: I personally reviewed and interpreted this ECG as follows: Indication: + abdominal pain Rate (beats per minute): 111 Rhythm: + sinus tachycardia ECG [place]: + Normal ECG ST segments: no ST depression and no ST elevation ECG Findings: + Other (QT-c 454, QRS 76); no PACs and no PVCs Blood Pressure Blood Pressure Findings: Elevated blood pressure Blood Pressure Disposition: further management by hospitalist MDM Narrative The patient is a pleasant 58-year-old woman with a past medical history of prior C. difficile and H. pylori who presents emergency department for evaluation of recurrent syncope and chronic abdominal pain, nausea, vomiting and diarrhea in the setting of being seen in our emergency department on 03/23 and 04/23 in addition to being seen at [facility] at least 6 times since February for similar sx per hpi. On patients ED visit here on 04/23 she had unremarkable CTA of chest and abdomen and negative CT head. She also recently had negative Cdiff testing at [place]. Of note, the patient is from [place] but reports she has been in [place] longer than expected due to finalizing divorce. She reports she has no place to stay and is staying at a homeless halfway. Case management review of patient's [facility] record, which documents repeat attempts to contact patient to arrange GI f/u. Patient reports she is unaware of this. On arrival patient is no acute distress, afebrile hypertensive 200s/100s, HR 100s and otherwise stable vital signs. The patient appears clinically dry. On exam the patient she has generalized abdominal tenderness to light touch of her skin. WBC 4.6, nonspecific. H/H and platelets wnl. Potassium 3.4, Phosphorus 2.4. Otherwise, Electrolytes and LFTs unremarkable. Troponin negative. UA negative for infection. EKG without overt acute ischemia. Chest x-ray negative for acute process. Given the patient's recurrent ED visits for similar symptoms reasonable to admit the patient for further management. Patient's blood pressure did improve to 160s/100s with IV fluid hydration, Pepcid, Compazine. Likely will require antihypertensive regimen. Case was discussed with Mario Ybarra, who evaluate the patient for admission. Impression & Plan Recurrent syncope, Chronic abdominal pain, Nausea vomiting and diarrhea Discharge Plan Visit Data *Final* Discharge Date/Time: 05/09/19 14:28 Chief Complaint: Nausea Stated Complaint: n/v/d ED Provider: Reuben Gustafson Discharge Problem: Recurrent syncope, Chronic abdominal pain, Nausea vomiting and diarrhea Patient Disposition: Admitted As Inpatient Discharge Instructions Interventions: ED Discharge Assessment Last Done: 05/09/19 14:28 The scribe's documentation has been prepared under my direction and personally reviewed by me in its entirety. I confirm that the note above accurately reflects all work, treatment, procedures, and medical decision making performed by me.
[2019-05-09] MEDS: FLUTICASONE/SALMETEROL 250/50 (ADVAIR) 14 PUFF/1 INHALER INH SCH (20:18)
[2019-05-09] MEDS: TRAMADOL HCL 50 MG TABLET PO PRN (20:19)
[2019-05-09] MEDS: HYDROmorphone INJ 0.5 MG/0.5 ML SYR IV PRN (21:29)
[2019-05-09 22:49] LABS: Amphetamines+Metham, Urine Neg (Neg); Barbiturates, Urine Neg (Neg); Benzodiazepine, Urine Neg (Neg); Cocaine, Urine Neg (Neg); MDMA (Ecstacy), Urine Neg (Neg); Methadone, Urine Neg (Neg); Opiate, Urine Neg (Neg); Phencyclidine, Urine Neg (Neg)
[2019-05-10] MEDS: methylPREDNISolone 40 MG in SYRINGE 0 ML IV SCH ×3 (00:48→16:29)
[2019-05-10] MEDS: DOXYCYCLINE HYCLATE 100 MG in DEXTROSE 5% 100 ML IV SCH ×3 (00:49→22:00)
[2019-05-10] MEDS: HYDROmorphone INJ 0.5 MG/0.5 ML SYR IV PRN ×5 (03:34→21:48)
[2019-05-10] MEDS: TRAMADOL HCL 50 MG TABLET PO PRN ×3 (06:28→20:45)
[2019-05-10] MEDS: NSS + 20MEQ KCL 20 MEQ/1,000 ML BAG IV SCH ×2 (06:28→17:37)
[2019-05-10 06:54] LABS: Hematocrit (blood only) 37.7 % (37-47); Hemoglobin 11.9 g/dL (12.0-16.0); Mean Corpuscular Hemoglobin 28.9 pg (25-34); Mean Corpuscular Hgb Conc 31.6 g/dL (32-36); Mean Corpuscular Volume 91.5 fL (80-100); Mean Platelet Volume 10.1 fL (7.4-10.4); Platelet Count 238 K/uL (130-400); RDW Standard Deviation 50.2 fL (36.4-46.3); Red Blood Count 4.12 M/uL (4.2-5.4); White Blood Count 5.74 K/uL (4.8-10.8)
[2019-05-10] MEDS: ALBUT/IPRATROP 3MG/0.5MG NEB 3 ML VIAL NEB SCH ×4 (06:58→19:36)
[2019-05-10 07:43] LABS: BUN Creatinine Ratio 11.3 (10-20); Calcium 9.1 mg/dl (8.5-10.1); Creatinine Clr Calc Pharmacy 79.8 ml/min; Est GFR (African American) 114.5; Est GFR (Non-African American) 98.8; Phosphorus 3.7 mg/dl (2.5-4.9)
[2019-05-10] MEDS: AMLODIPINE BESYLATE 5 MG TAB PO SCH (08:30)
[2019-05-10] MEDS: FLUTICASONE/SALMETEROL 250/50 (ADVAIR) 14 PUFF/1 INHALER INH SCH ×2 (08:30→20:45)
[2019-05-10] MEDS: PANTOprazole 40 MG in SYRINGE 0 ML IV SCH ×2 (08:30→20:45)
--- NOTE | 2019-05-10 08:42 | Hospitalist Progress Note ---
Date of Service May 10, 2019 Assessment & Plan (1) Nausea vomiting and diarrhea: (2) Abdominal pain: -Admitted to telemetry, continues to be in sinus rhythm -Patient presents with various abdominal complaints: Nausea, vomiting, diarrhea with intermittent episodes of hematemesis, coffee-ground emesis, bright red bleeding per rectum, black stools -Has had several ED evaluations at [facility], [facility], and [facility] for the same complaints over the past 2 months -Several CT ABD/pelvis have been completed without acute findings; will hold on repeating today -Per patient, she was treated for H. pylori and C. difficile in January 2019 at [facility]; will obtain records -On admission labs unremarkable; no leukocytosis, H&H stable, LFTs WNL, lipase WNL -History of duodenal ulcer 2012 -Case discussed with VALENTINA Mercado, plan for EGD by GI today (05/10) -possible gastric emptying study to follow -IV PPI twice daily -Stool cultures, C. difficile-pending -PRN Bentyl for abdominal pain; would avoid narcotics due to concerns of drug- seeking behavior (3) Hypertensive urgency: -Presenting BP 217/100 -Patient denies prior history of hypertension -started Norvasc 5 mg on admission -PRN labetalol (4) COPD exacerbation: -Patient has diffuse wheezing on exam, saturating well on room air -Solu-Medrol 40 mg IV every 8 hours (avoiding p.o. steroids due to concern of possible PUD) -Empiric doxycycline, nebs -Still diffusely wheezing, continue above regimen (5) DVT prophylaxis: -SCDs for now due to concerns for possible PUD (6) Discharge planning issues: -Patient reports she is currently residing in a [place] and [place] -Has health insurance however reports she does not have drug coverage -Case management consult (7) Anemia: Current hemoglobin 11.9 down from 13.3 yesterday (05/09) -Normocytic -Likely dilutional, but possibly from a GI bleed loss, EGD today, possible GI bleed work-up in progress Subjective No acute events overnight. Currently says that she has nausea, also had some abdominal pain earlier this morning. Plan for EGD with GI today. Denies any chest pain or shortness of breath. Review of Systems Review of Systems: All systems reviewed & are unremarkable except as noted in HPI & below Constitutional: no fever, no chills and no fatigue Respiratory: no cough, no dyspnea and no pain on inspiration Cardiovascular: no chest pain, no palpitations and no edema Gastrointestinal: + abdominal pain and + nausea; no vomiting Physical Exam Physical Exam: Female lying in bed, in no acute distress Constitutional: well developed and well nourished; no acute distress Eyes: PERRL, conjunctivae normal, anicteric sclerae EOM intact bilaterally ENMT: external ear and nose normal, oropharynx normal Neck: normal visual inspection Supple Respiratory: normal respiratory effort; no respiratory distress, no labored breathing and no retractions Auscultation: + wheezes (Diffuse) Cardiovascular: RRR, no murmur, no edema Heart Sounds: no gallop Chest (Breasts): Chest: normal inspection of chest Gastrointestinal (Abdomen): Inspection/Auscultation: abdomen normal to inspection and normal bowel sounds; abdomen not distended Percussion/Palpation: + abdomen tender (Mildly tender to palpation in the epigastric area) and abdomen soft; no guarding and abdomen not rigid Musculoskeletal: Head/Neck/Chest: normocephalic, head atraumatic and neck supple Extremities: extremities normal to inspection Moves all 4 extremities spontaneously Skin: no rashes, warm and dry Neurologic: PERRL, EOMI, accommodation nl, no face palsy, no dysarthria moves all extremities Speech / Cognition: normal speech Psychiatric: A+Ox3, euthymic affect Speech: normal rate/rhythm/volume of speech Lymphatic: no lymphedema Results & Data Vital Signs (Past 12 Hours) Vital Signs Temp Pulse Pulse Resp BP BP Pulse Ox 05/10/19 07:52 36.8 C 95 H 20 125/77 94 05/10/19 06:58 87 18 97 05/10/19 03:32 36.8 C 90 19 144/89 H 93 05/10/19 00:29 87 L 05/10/19 00:04 78 05/10/19 00:00 36.8 C 77 19 111/65 93 Laboratory Results 05/10/19 05/10/19 05/10/19 Range/Units 07:15 06:17 06:17 WBC 5.74 (4.8-10.8) K/uL RBC 4.12 L (4.2-5.4) M/uL Hgb 11.9 L (12.0-16.0) g/dL Hct 37.7 (37-47) % MCV 91.5 (80-100) fL MCH 28.9 (25-34) pg MCHC 31.6 L (32-36) g/dL RDW Std Deviation 50.2 H (36.4-46.3) fL RDW Coeff of [place] 15.0 H (11.5-14.5) % Plt Count 238 (130-400) K/uL MPV 10.1 (7.4-10.4) fL Immature Gran % (Auto) % Neut % (Auto) % Lymph % (Auto) % [place] % (Auto) % Eos % (Auto) % Baso % (Auto) % Immature Gran # (Auto) (0.00-0.02) K/uL Neut # (Auto) (1.4-6.5) K/uL Lymph # (Auto) (1.2-3.4) K/uL [place] # (Auto) (0.11-0.59) K/uL Eos # (Auto) (0-0.5) K/uL Baso # (Auto) (0-0.2) K/uL Sodium 140 (136-145) mmol/L Potassium (3.5-5.1) mmol/L Chloride 111 H (98-107) mmol/L Carbon Dioxide 25 (21-32) mmol/L Anion Gap 4.0 (3-11) BUN 7 (7-18) mg/dl Creatinine 0.66 (0.6-1.2) mg/dl Est Cr Clr Drug Dosing 79.8 ml/min Est GFR ( Amer) 114.5 Est GFR (Non-Af Amer) 98.8 BUN/Creatinine Ratio 11.3 (10-20) Glucose 128 H (70-99) mg/dl POC Glucose 139 H (70-99) Calcium 9.1 (8.5-10.1) mg/dl Phosphorus 3.7 D (2.5-4.9) mg/dl Magnesium (1.8-2.4) mg/dl Total Bilirubin (0.2-1) mg/dl Direct Bilirubin (0-0.2) mg/dl AST (15-37) U/L ALT (12-78) U/L Alkaline Phosphatase (45-117) U/L Troponin I (0-0.045) ng/ml Total Protein (6.4-8.2) gm/dl Albumin (3.4-5.0) gm/dl Globulin (2.5-4.0) gm/dl Albumin/Globulin Ratio (0.9-2) Lipase (73-393) U/L Urine Color Urine Appearance (Clear) Urine pH (4.5-7.5) Ur Specific [place] (1.000-1.030) Urine Protein (Negative) Urine Glucose (UA) (Negative) Urine Ketones (Negative) Urine Blood (Negative) Urine Nitrite (Negative) Urine Bilirubin (Negative) Urine Urobilinogen (Negative) Ur Leukocyte Esterase (Negative) Urine Opiates Screen (Neg) Ur Methadone, Qual (Neg) Urine Barbiturates (Neg) Ur Phencyclidine (PCP) (Neg) U Amphetamin/Meth Scrn (Neg) MDMA (Ecstasy) Screen (Neg) U Benzodiazepines Scrn (Neg) Ur Cocaine Metabolite (Neg) U Marijuana (THC) Screen (Neg) Ethyl Alcohol mg/dL (0-3) mg/dl Hepatitis C Ab Screen (Neg) 05/09/19 05/09/19 05/09/19 Range/Units 20:05 16:48 11:43 WBC (4.8-10.8) K/uL RBC (4.2-5.4) M/uL Hgb (12.0-16.0) g/dL Hct (37-47) % MCV (80-100) fL MCH (25-34) pg MCHC (32-36) g/dL RDW Std Deviation (36.4-46.3) fL RDW Coeff of [place] (11.5-14.5) % Plt Count (130-400) K/uL MPV (7.4-10.4) fL Immature Gran % (Auto) % Neut % (Auto) % Lymph % (Auto) % [place] % (Auto) % Eos % (Auto) % Baso % (Auto) % Immature Gran # (Auto) (0.00-0.02) K/uL Neut # (Auto) (1.4-6.5) K/uL Lymph # (Auto) (1.2-3.4) K/uL [place] # (Auto) (0.11-0.59) K/uL Eos # (Auto) (0-0.5) K/uL Baso # (Auto) (0-0.2) K/uL Sodium (136-145) mmol/L Potassium (3.5-5.1) mmol/L Chloride (98-107) mmol/L Carbon Dioxide (21-32) mmol/L Anion Gap (3-11) BUN (7-18) mg/dl Creatinine (0.6-1.2) mg/dl Est Cr Clr Drug Dosing ml/min Est GFR ( Amer) Est GFR (Non-Af Amer) BUN/Creatinine Ratio (10-20) Glucose (70-99) mg/dl POC Glucose 116 H 100 H (70-99) Calcium (8.5-10.1) mg/dl Phosphorus (2.5-4.9) mg/dl Magnesium (1.8-2.4) mg/dl Total Bilirubin (0.2-1) mg/dl Direct Bilirubin (0-0.2) mg/dl AST (15-37) U/L ALT (12-78) U/L Alkaline Phosphatase (45-117) U/L Troponin I (0-0.045) ng/ml Total Protein (6.4-8.2) gm/dl Albumin (3.4-5.0) gm/dl Globulin (2.5-4.0) gm/dl Albumin/Globulin Ratio (0.9-2) Lipase (73-393) U/L Urine Color Urine Appearance (Clear) Urine pH (4.5-7.5) Ur Specific [place] (1.000-1.030) Urine Protein (Negative) Urine Glucose (UA) (Negative) Urine Ketones (Negative) Urine Blood (Negative) Urine Nitrite (Negative) Urine Bilirubin (Negative) Urine Urobilinogen (Negative) Ur Leukocyte Esterase (Negative) Urine Opiates Screen (Neg) Ur Methadone, Qual (Neg) Urine Barbiturates (Neg) Ur Phencyclidine (PCP) (Neg) U Amphetamin/Meth Scrn (Neg) MDMA (Ecstasy) Screen (Neg) U Benzodiazepines Scrn (Neg) Ur Cocaine Metabolite (Neg) U Marijuana (THC) Screen (Neg) Ethyl Alcohol mg/dL (0-3) mg/dl Hepatitis C Ab Screen Neg (Neg) 05/09/19 05/09/19 05/09/19 Range/Units 11:37 11:37 11:37 WBC 4.65 L (4.8-10.8) K/uL RBC 4.57 (4.2-5.4) M/uL Hgb 13.3 (12.0-16.0) g/dL Hct 41.0 (37-47) % MCV 89.7 (80-100) fL MCH 29.1 (25-34) pg MCHC 32.4 (32-36) g/dL RDW Std Deviation 48.5 H (36.4-46.3) fL RDW Coeff of [place] 14.9 H (11.5-14.5) % Plt Count 232 (130-400) K/uL MPV 9.6 (7.4-10.4) fL Immature Gran % (Auto) 0.0 % Neut % (Auto) 68.0 % Lymph % (Auto) 22.4 % [place] % (Auto) 7.7 % Eos % (Auto) 1.3 % Baso % (Auto) 0.6 % Immature Gran # (Auto) 0.00 (0.00-0.02) K/uL Neut # (Auto) 3.16 (1.4-6.5) K/uL Lymph # (Auto) 1.04 L (1.2-3.4) K/uL [place] # (Auto) 0.36 (0.11-0.59) K/uL Eos # (Auto) 0.06 (0-0.5) K/uL Baso # (Auto) 0.03 (0-0.2) K/uL Sodium 140 (136-145) mmol/L Potassium 3.4 L (3.5-5.1) mmol/L Chloride 107 (98-107) mmol/L Carbon Dioxide 27 (21-32) mmol/L Anion Gap 6.0 (3-11) BUN 6 L (7-18) mg/dl Creatinine 0.72 (0.6-1.2) mg/dl Est Cr Clr Drug Dosing 72.8 ml/min Est GFR ( Amer) 108.5 Est GFR (Non-Af Amer) 93.6 BUN/Creatinine Ratio 8.7 L (10-20) Glucose 98 (70-99) mg/dl POC Glucose (70-99) Calcium 9.2 (8.5-10.1) mg/dl Phosphorus 2.4 L (2.5-4.9) mg/dl Magnesium 1.8 (1.8-2.4) mg/dl Total Bilirubin 0.3 (0.2-1) mg/dl Direct Bilirubin 0.1 (0-0.2) mg/dl AST 14 L (15-37) U/L ALT 16 (12-78) U/L Alkaline Phosphatase 93 (45-117) U/L Troponin I < 0.015 (0-0.045) ng/ml Total Protein 7.2 (6.4-8.2) gm/dl Albumin 4.0 (3.4-5.0) gm/dl Globulin 3.2 (2.5-4.0) gm/dl Albumin/Globulin Ratio 1.3 (0.9-2) Lipase 56 L (73-393) U/L Urine Color Urine Appearance (Clear) Urine pH (4.5-7.5) Ur Specific [place] (1.000-1.030) Urine Protein (Negative) Urine Glucose (UA) (Negative) Urine Ketones (Negative) Urine Blood (Negative) Urine Nitrite (Negative) Urine Bilirubin (Negative) Urine Urobilinogen (Negative) Ur Leukocyte Esterase (Negative) Urine Opiates Screen (Neg) Ur Methadone, Qual (Neg) Urine Barbiturates (Neg) Ur Phencyclidine (PCP) (Neg) U Amphetamin/Meth Scrn (Neg) MDMA (Ecstasy) Screen (Neg) U Benzodiazepines Scrn (Neg) Ur Cocaine Metabolite (Neg) U Marijuana (THC) Screen (Neg) Ethyl Alcohol mg/dL < 3.0 (0-3) mg/dl Hepatitis C Ab Screen (Neg) 05/09/19 05/09/19 Range/Units 09:30 09:30 WBC (4.8-10.8) K/uL RBC (4.2-5.4) M/uL Hgb (12.0-16.0) g/dL Hct (37-47) % MCV (80-100) fL MCH (25-34) pg MCHC (32-36) g/dL RDW Std Deviation (36.4-46.3) fL RDW Coeff of [place] (11.5-14.5) % Plt Count (130-400) K/uL MPV (7.4-10.4) fL Immature Gran % (Auto) % Neut % (Auto) % Lymph % (Auto) % [place] % (Auto) % Eos % (Auto) % Baso % (Auto) % Immature Gran # (Auto) (0.00-0.02) K/uL Neut # (Auto) (1.4-6.5) K/uL Lymph # (Auto) (1.2-3.4) K/uL [place] # (Auto) (0.11-0.59) K/uL Eos # (Auto) (0-0.5) K/uL Baso # (Auto) (0-0.2) K/uL Sodium (136-145) mmol/L Potassium (3.5-5.1) mmol/L Chloride (98-107) mmol/L Carbon Dioxide (21-32) mmol/L Anion Gap (3-11) BUN (7-18) mg/dl Creatinine (0.6-1.2) mg/dl Est Cr Clr Drug Dosing ml/min Est GFR ( Amer) Est GFR (Non-Af Amer) BUN/Creatinine Ratio (10-20) Glucose (70-99) mg/dl POC Glucose (70-99) Calcium (8.5-10.1) mg/dl Phosphorus (2.5-4.9) mg/dl Magnesium (1.8-2.4) mg/dl Total Bilirubin (0.2-1) mg/dl Direct Bilirubin (0-0.2) mg/dl AST (15-37) U/L ALT (12-78) U/L Alkaline Phosphatase (45-117) U/L Troponin I (0-0.045) ng/ml Total Protein (6.4-8.2) gm/dl Albumin (3.4-5.0) gm/dl Globulin (2.5-4.0) gm/dl Albumin/Globulin Ratio (0.9-2) Lipase (73-393) U/L Urine Color Yellow Urine Appearance Clear (Clear) Urine pH 6.5 (4.5-7.5) Ur Specific [place] 1.015 (1.000-1.030) Urine Protein Negative (Negative) Urine Glucose (UA) Negative (Negative) Urine Ketones Negative (Negative) Urine Blood Negative (Negative) Urine Nitrite Negative (Negative) Urine Bilirubin Negative (Negative) Urine Urobilinogen Negative (Negative) Ur Leukocyte Esterase Negative (Negative) Urine Opiates Screen Neg (Neg) Ur Methadone, Qual Neg (Neg) Urine Barbiturates Neg (Neg) Ur Phencyclidine (PCP) Neg (Neg) U Amphetamin/Meth Scrn Neg (Neg) MDMA (Ecstasy) Screen Neg (Neg) U Benzodiazepines Scrn Neg (Neg) Ur Cocaine Metabolite Neg (Neg) U Marijuana (THC) Screen Neg (Neg) Ethyl Alcohol mg/dL (0-3) mg/dl Hepatitis C Ab Screen (Neg) Diagnostic Findings CXR (05/09/2019) FINDINGS: The bones soft tissues and hemidiaphragms are normal. The card iomediastinal silhouette is normal. The lungs are clear. The pulmonary vasculature is normal. IMPRESSION: Negative chest. Medications Administered Current Inpatient Medications Acetaminophen (Tylenol) 650 mg PO Q4H PRN PRN Reason: pain/fever Stop: 06/08/19 15:09 Last Admin: 05/09/19 15:20 Dose: 650 mg Documented by: Albuterol (Duoneb) 3 ml NEB QIDR [facility] Stop: 06/08/19 15:09 Last Admin: 05/10/19 06:58 Dose: 3 ml Documented by: Amlodipine Besylate (Norvasc) 5 mg PO DAILY [facility] Stop: 06/08/19 15:09 Last Admin: 05/10/19 08:30 Dose: 5 mg Documented by: Dicyclomine HCl (Bentyl) 10 mg PO TID PRN PRN Reason: abdominal pain Stop: 06/08/19 15:09 Hydromorphone HCl (Dilaudid) 0.5 mg IV Q4H PRN PRN Reason: Pain Stop: 05/23/19 20:52 Last Admin: 05/10/19 03:34 Dose: 0.5 mg Documented by: Pantoprazole Sodium 40 mg/ (Syringe) 10 mls @ 5 mls/min IV BID@0900,2100 [facility] Stop: 06/08/19 12:59 Last Admin: 05/10/19 08:30 Dose: 5 mls/min Documented by: Doxycycline Hyclate 100 mg/ (Dextrose) 110 mls @ 50 mls/hr IV BID [facility] Stop: 05/16/19 15:59 Last Admin: 05/10/19 08:31 Dose: 50 mls/hr Documented by: Methylprednisolone 40 mg/ (Syringe) 0.64 mls @ 1.5 mls/min IV Q8H VIKASH Stop: 06/08/19 15:59 Last Admin: 05/10/19 08:30 Dose: 1.5 mls/min Documented by: Acetaminophen (Ofirmev) 1,000 mg in 100 mls @ 400 mls/hr IV Q8H PRN PRN Reason: Moderate Pain Stop: 05/12/19 16:02 Last Infusion: 05/09/19 16:58 Dose: Infused Documented by: Potassium Chloride/Sodium Chloride (Normal Saline W/20 Meq Kcl) 20 meq in 1,000 mls @ 80 mls/hr IV .[id number] [facility] Stop: 05/11/19 06:44 Last Admin: 05/10/19 06:28 Dose: 80 mls/hr Documented by: Promethazine HCl 12.5 mg/ (Sodium Chloride) 50.5 mls @ 202 mls/hr IV Q6H PRN PRN Reason: Nausea And Vomiting Stop: 06/08/19 18:49 Labetalol HCl (Normodyne) 10 mg IV Q8H PRN PRN Reason: HTN Stop: 06/08/19 15:09 Last Admin: 05/09/19 17:05 Dose: 10 mg Documented by: Ondansetron HCl (Zofran) 4 mg IV Q6H PRN PRN Reason: nausea Stop: 06/08/19 15:09 Last Admin: 05/09/19 17:51 Dose: 4 mg Documented by: Fluticasone/Salmeterol (Advair Diskus 250/50) 1 puffs INH BID [facility] Stop: 06/08/19 20:59 Last Admin: 05/10/19 08:30 Dose: 1 puffs Documented by: Tramadol HCl (Ultram) 50 mg PO Q4H PRN PRN Reason: Pain Stop: 06/08/19 17:35 Last Admin: 05/10/19 06:28 Dose: 50 mg Documented by:
--- NOTE | 2019-05-10 08:50 | Gastroenterology Progress Note ---
Date of Service May 10, 2019 Assessment & Plan (1) Chronic abdominal pain: 58 year old female with history of T2DM, h.pylori, PUD, c.diff colitis who is admitted through the ED w/ persistent abdominal pain, nausea, vomiting, diarrhea and intermittent episodes of bloody bowel movements. She is hemodynamically stable. Labs without leukocytosis, HGB within normal limits, no BUN elevation. LFTs and lipase are non-elevated - NPO for EGD - IV PPI BID - Check stool culture - Check c.diff - Bentyl 10 mg three times daily PRN - Consider gastric emptying scan tomorrow if EGD is negative Thank you for allowing us to participate in the care of this patient. Please call with any acute changes, questions or concerns. Please see addendum below with additional recommendation from my supervising physician. (2) Nausea vomiting and diarrhea: Supervising Physician Co-Signing Physician Notes I have seen and examined the patient with VALENTINA Salgado whose note reflects our findings and plan. Variety of abdominal complaints. melena. history of ulcers. EGD today. Subjective NPO for EGD No acute events noted Does now tell me she has been having solids/pills dysphagia No nausea, vomiting since admission No BM since admitted to floor Review of Systems Constitutional: no fever and no chills Respiratory: no cough and no dyspnea Cardiovascular: no chest pain Gastrointestinal: + abdominal pain and + dysphagia; no blood in stools and no melena Physical Exam Constitutional: well nourished; no acute distress Neck: trachea midline Respiratory: normal respiratory effort Cardiovascular: Rate/Rhythm: regular rate and regular rhythm Gastrointestinal (Abdomen): Inspection/Auscultation: normal bowel sounds Percussion/Palpation: abdomen soft; abdomen nontender, no guarding and abdomen not rigid Skin: no rashes, warm and dry Results & Data Vital Signs (Past 12 Hours) Vital Signs Temp Pulse Pulse Resp BP BP Pulse Ox 05/10/19 07:52 36.8 C 95 H 20 125/77 94 05/10/19 06:58 87 18 97 05/10/19 03:32 36.8 C 90 19 144/89 H 93 05/10/19 00:29 87 L 05/10/19 00:04 78 05/10/19 00:00 36.8 C 77 19 111/65 93
--- NOTE | 2019-05-10 11:58 | Anesthesiology Consultation ---
Date of Service May 10, 2019 Assessment & Plan Chart Review Chart Review: Acceptable Risk for Surgery and Patient NOT seen in Pre Admission Testing Consults Requested none History Surgery Operation Date: 05/10/19 16:00 Proposed Procedures p Esophagogastroduodenoscopy Dr Peralta - Tali Peralta Height/Weight Height: 5 ft 1 in Weight: 61 kg Allergies Allergy/AdvReac Type Severity Reaction Status Date / Time amoxicillin Allergy Severe swell up Verified 05/09/19 10:17 cant breathe erythromycin base Allergy Severe swell up Verified 05/09/19 10:17 cant breathe ibuprofen Allergy Severe swell up Verified 05/09/19 10:17 cant breathe ketorolac Allergy Severe swell up Verified 05/09/19 10:17 cant breathe moxifloxacin Allergy Severe Anaphylaxis Verified 05/09/19 10:17 naproxen Allergy Severe swell up Verified 05/09/19 10:17 cant breathe oxytetracycline Allergy Severe SWELLS UP Verified 05/09/19 10:17 AND CANT BREATH Penicillins Allergy Severe swell up Verified 05/09/19 10:17 cant breathe Medications Home Medications Medication Instructions Recorded Confirmed Last Taken albuterol sulfate 2 puff INHALATION Q6H PRN 05/09/19 05/09/19 Unknown fluticasone propion-salmeterol 1 inh INHALATION BID 05/09/19 05/09/19 Unknown [Advair Diskus] Active Medications Generic Name Dose Route Start Last Admin Trade Name Freq PRN Reason Stop Dose Admin Acetaminophen 650 mg 05/09/19 15:10 05/09/19 15:20 Tylenol PO 06/08/19 15:09 650 mg Q4H PRN Administration pain/fever Albuterol 3 ml 05/09/19 15:10 05/10/19 11:08 Duoneb NEB 06/08/19 15:09 3 ml QIDR VIKASH Administration Amlodipine Besylate 5 mg 05/09/19 15:10 05/10/19 08:30 Norvasc PO 06/08/19 15:09 5 mg DAILY VIKASH Administration Hydromorphone HCl 0.5 mg 05/09/19 20:53 05/10/19 09:43 Dilaudid IV 05/23/19 20:52 0.5 mg Q4H PRN Administration Pain Pantoprazole Sodium 40 mg/ 10 mls @ 5 mls/min 05/09/19 13:00 05/10/19 08:30 Syringe IV 06/08/19 12:59 5 mls/min BID@0900,2100 VIKASH Administration Doxycycline Hyclate 100 mg/ 110 mls @ 50 mls/hr 05/09/19 16:00 05/10/19 10:38 Dextrose IV 05/16/19 15:59 Infused BID VIKASH Infusion Methylprednisolone 40 mg/ 0.64 mls @ 1.5 mls/min 05/09/19 16:00 05/10/19 08:30 Syringe IV 06/08/19 15:59 1.5 mls/min Q8H VIKASH Administration Acetaminophen 1,000 mg in 100 mls @ 400 mls/hr 05/09/19 16:03 05/09/19 16:58 Ofirmev IV 05/12/19 16:02 Infused Q8H PRN Infusion Moderate Pain Potassium Chloride/Sodium Chloride 20 meq in 1,000 mls @ 80 mls/hr 05/09/19 17:15 05/10/19 06:28 Normal Saline W/20 Meq Kcl IV 05/11/19 06:44 80 mls/hr .[id number] VIKASH Administration Labetalol HCl 10 mg 05/09/19 15:10 05/09/19 17:05 Normodyne IV 06/08/19 15:09 10 mg Q8H PRN Administration HTN Ondansetron HCl 4 mg 05/09/19 15:10 05/09/19 17:51 Zofran IV 06/08/19 15:09 4 mg Q6H PRN Administration nausea Fluticasone/Salmeterol 1 puffs 05/09/19 21:00 05/10/19 08:30 Advair Diskus 250/50 INH 06/08/19 20:59 1 puffs BID VIKASH Administration Tramadol HCl 50 mg 05/09/19 17:36 05/10/19 06:28 Ultram PO 06/08/19 17:35 50 mg Q4H PRN Administration Pain NPO Date Last Intake of Fluids: 05/09/19 Time Last Intake of Fluids: 08:30 Date Last Intake of Solids: 05/06/19 Past Medical History Medical History C. difficile diarrhea COPD (chronic obstructive pulmonary disease) H pylori ulcer Past Family History Family History Other Cancer Diabetes Heart disease Hypertension Past Surgical History Surgical History History of appendectomy History of cholecystectomy Hx of tonsillectomy (Resolved) Hx of tubal ligation (Resolved) Social History Smoking Status: Current every day smoker tobacco type: cigarettes Smoking cigarettes per day: 10 Do You Dip or Chew Tobacco: No Hx Alcohol Use: No Hx Substance Use: No Physical Exam Vital Signs Last Vital Signs Temp 36.9 C 05/10/19 11:52 Pulse 91 H 05/10/19 11:52 Resp 20 05/10/19 11:52 BP 143/89 H 05/10/19 11:52 Pulse Ox 95 05/10/19 11:52 Testing Laboratory Results 05/10/19 06:17 05/10/19 06:17 Urine Color Yellow 05/09/19 09:30 Urine Appearance Clear (Clear) 05/09/19 09:30 Urine pH 6.5 (4.5-7.5) 05/09/19 09:30 Ur Specific [place] 1.015 (1.000-1.030) 05/09/19 09:30 Urine Protein Negative (Negative) 05/09/19 09:30 Urine Glucose (UA) Negative (Negative) 05/09/19 09:30 Urine Ketones Negative (Negative) 05/09/19 09:30 Urine Nitrite Negative (Negative) 05/09/19 09:30 Ur Leukocyte Esterase Negative (Negative) 05/09/19 09:30 05/10/19 05/10/19 11:26 07:15 POC Glucose 150 H 139 H
[2019-05-10] MEDS ORDERED: ATROPINE SULFATE 0.1 MG/ML 10ML SYR IV PRN (12:02)
[2019-05-10] MEDS ORDERED: ePHEDrine sulfate 50 MG/ML AMP IV PRN (12:02)
[2019-05-10] MEDS ORDERED: PROPOFOL IV EMULSION 10 MG/ML 20 ML VIAL IV ONE (12:33)
[2019-05-10] MEDS ORDERED: LIDOCAINE HCL 2% 2 ML VIAL/AMP(20MG/ML) INFIL ONE (12:33)
--- NOTE | 2019-05-10 12:40 | GI REPORT ---
Patient Name: Telma Estrada Procedure Date: 05/10/2019 12:05 PM Date of : 1960 Admit Type: Inpatient Age: 58 Gender: Female Attending MD: Tali Peralta DO Procedure: Upper GI endoscopy Providers: Tali Peralta DO Referring MD: Referred SelfMo Md Indications: Epigastric abdominal pain Medicines: Propofol per Anesthesia Complications: No immediate complications. Estimated blood loss: Minimal. Estimated Blood Loss: Estimated blood loss was minimal. Procedure: Pre-Anesthesia Assessment: - Prior to the procedure, a History and Physical was performed, and patient medications, allergies and sensitivities were reviewed. The patient's tolerance of previous anesthesia was reviewed. - The risks and benefits of the procedure and the sedation options and risks were discussed with the patient. All questions were answered and informed consent was obtained. - Patient identification and proposed procedure were verified prior to the procedure by the physician and the nurse. The procedure was verified in the pre-procedure area in the procedure room. - Mental Status Examination: alert and oriented. Airway Examination: normal oropharyngeal airway and neck mobility. Respiratory Examination: clear to auscultation. CV Examination: normal. Abdominal Examination: bowel sounds present, abdomen soft and non-tender, no masses or organomegaly noted. - ASA Grade Assessment: III - A patient with severe systemic disease. After obtaining informed consent, the endoscope was passed under direct vision. Throughout the procedure, the patient's blood pressure, pulse, and oxygen saturations were monitored continuously. The Endoscope was introduced through the mouth, and advanced to the second part of duodenum. The upper GI endoscopy was accomplished without difficulty. The patient tolerated the procedure well. Findings: The esophagus was normal. Minimal inflammation characterized by congestion (edema) and erythema was found in the entire examined stomach. Biopsies were taken with a cold forceps for Helicobacter pylori testing. Verification of patient identification for the specimen was done by the physician and nurse using the patient's name and date. Estimated blood loss was minimal. The examined duodenum was normal. Impression: - Normal esophagus. - Mild gastritis. Biopsied. - Normal examined duodenum. Recommendation: - Await pathology results. - Follow an antireflux regimen. - Continue present medications. - [facility] care. Tali T. SuvLexa peters, 05/10/2019 12:40:03 PM This report has been signed electronically. Note Initiated On: 05/10/2019 12:05 PM Number of Addenda: 0 I attest to the content of the Intraoperative Record and orders documented therein, exceptions below {[id number]}
--- NOTE | 2019-05-10 16:48 | Anesthesiology Progress Note ---
Date of Service May 10, 2019 Anesthesia Post Procedure Vital Signs Vital Signs: Temp Pulse Pulse Resp BP BP Pulse Ox 05/10/19 15:47 36.9 C 99 H 16 125/72 98 05/10/19 13:27 36.8 C 96 H 18 134/78 96 05/10/19 13:06 94 H 20 129/78 97 05/10/19 12:50 95 H 20 114/72 98 05/10/19 12:35 90 20 111/65 96 05/10/19 11:52 36.9 C 91 H 20 143/89 H 95 05/10/19 11:09 105 H 18 96 05/10/19 11:03 37.0 C 76 18 105/64 97 05/10/19 08:00 78 05/10/19 07:52 36.8 C 95 H 20 125/77 94 05/10/19 06:58 87 18 97 05/10/19 03:32 36.8 C 90 19 144/89 H 93 05/10/19 00:29 87 L 05/10/19 00:04 78 05/10/19 00:00 36.8 C 77 19 111/65 93 05/09/19 19:16 36.8 C 78 19 145/76 H 94 Pain Intensity Abdomen: Pain Intensity: 8 Transfer of Care Handoff Completed per policy Notes Mental Status: alert / awake / arousable Patient Amnestic to Procedure: Yes Nausea / Vomiting: adequately controlled Pain: adequately controlled Airway Patency, RR, SpO2: stable & adequate BP & HR: stable & adequate Hydration State: stable & adequate Anesthetic Complications: no major complications apparent and Pt Satisfied with anesthetic care
[2019-05-10] MEDS: ONDANSETRON INJ 2 MG/ML 2 ML VIAL IV PRN (17:43)
[2019-05-11] MEDS: methylPREDNISolone 40 MG in SYRINGE 0 ML IV SCH ×4 (00:03→23:40)
[2019-05-11] MEDS: TRAMADOL HCL 50 MG TABLET PO PRN ×4 (01:49→19:45)
[2019-05-11] MEDS: HYDROmorphone INJ 0.5 MG/0.5 ML SYR IV PRN ×5 (02:33→20:58)
[2019-05-11 06:34] LABS: Hematocrit (blood only) 35.7 % (37-47); Hemoglobin 11.2 g/dL (12.0-16.0); Immature Granulocytes # (auto) 0.01 K/uL (0.00-0.02); Immature Granulocytes % (auto) 0.2 %; Lymphocytes # (auto) 0.42 K/uL (1.2-3.4); Lymphocytes % (auto) 6.9 %; Mean Corpuscular Hemoglobin 29.1 pg (25-34); Mean Corpuscular Hgb Conc 31.4 g/dL (32-36); Mean Corpuscular Volume 92.7 fL (80-100); Monocytes # (auto) 0.09 K/uL (0.11-0.59); Monocytes % (auto) 1.5 %; Neutrophils # (auto) 5.57 K/uL (1.4-6.5); Neutrophils % (auto) 91.4 %; Platelet Count 192 K/uL (130-400); RDW Coefficient of Variation 15.3 % (11.5-14.5); RDW Standard Deviation 51.9 fL (36.4-46.3); Red Blood Count 3.85 M/uL (4.2-5.4); White Blood Count 6.09 K/uL (4.8-10.8)
[2019-05-11 07:21] LABS: BUN Creatinine Ratio 15.7 (10-20); Calcium 9.2 mg/dl (8.5-10.1); Creatinine Clr Calc Pharmacy 75.8 ml/min; Est GFR (African American) 112.8; Est GFR (Non-African American) 97.3; Potassium 4.5 mmol/L (3.5-5.1)
[2019-05-11] MEDS: ALBUT/IPRATROP 3MG/0.5MG NEB 3 ML VIAL NEB SCH ×4 (07:28→19:02)
[2019-05-11] MEDS: FLUTICASONE/SALMETEROL 250/50 (ADVAIR) 14 PUFF/1 INHALER INH SCH ×2 (07:39→20:56)
[2019-05-11] MEDS: PANTOprazole 40 MG in SYRINGE 0 ML IV SCH ×2 (07:40→20:57)
[2019-05-11] MEDS: AMLODIPINE BESYLATE 5 MG TAB PO SCH (07:41)
[2019-05-11] MEDS: DOXYCYCLINE HYCLATE 100 MG in DEXTROSE 5% 100 ML IV SCH (07:42)
[2019-05-11] MEDS: ONDANSETRON INJ 2 MG/ML 2 ML VIAL IV PRN ×2 (07:51→16:34)
--- NOTE | 2019-05-11 10:24 | Anesthesiology Progress Note ---
Date of Service May 11, 2019 Anesthesia Post Procedure Vital Signs Vital Signs: Temp Pulse Resp BP BP Pulse Ox 05/11/19 08:57 96 05/11/19 08:29 37 C 86 24 127/70 86 L 05/11/19 08:00 97 H 05/11/19 07:58 123/74 05/11/19 07:28 89 16 91 05/10/19 22:18 37.2 C 79 18 114/62 99 05/10/19 20:50 95 05/10/19 20:30 37.2 C 109 H 18 143/86 H 90 05/10/19 19:38 88 16 98 05/10/19 18:50 36.9 C 88 19 129/74 98 05/10/19 15:47 36.9 C 99 H 16 125/72 98 05/10/19 13:27 36.8 C 96 H 18 134/78 96 05/10/19 13:06 94 H 20 129/78 97 05/10/19 12:50 95 H 20 114/72 98 05/10/19 12:35 90 20 111/65 96 05/10/19 11:52 36.9 C 91 H 20 143/89 H 95 05/10/19 11:09 105 H 18 96 05/10/19 11:03 37.0 C 76 18 105/64 97 Pain Intensity Abdomen: Pain Intensity: 7 Transfer of Care Handoff Completed per policy Notes Mental Status: alert / awake / arousable and participated in evaluation Patient Amnestic to Procedure: Yes Nausea / Vomiting: adequately controlled Pain: see Notes below Airway Patency, RR, SpO2: stable & adequate BP & HR: stable & adequate Hydration State: stable & adequate Anesthetic Complications: no major complications apparent and Pt Satisfied with anesthetic care Notes: Pt reports that pain is unchanged from prior to procedure
[2019-05-11] MEDS: PROMETHAZINE HCL 12.5 MG in SODIUM CHLORIDE 0.9% 50 ML IV PRN (12:31)
[2019-05-11] MEDS: DICYCLOMINE HCL 10 MG CAP PO PRN (12:31)
[2019-05-11] MEDS: ACETAMINOPHEN 325 MG TAB PO PRN (16:44)
--- NOTE | 2019-05-11 19:06 | Hospitalist Progress Note ---
Date of Service May 11, 2019 Assessment & Plan (1) Nausea vomiting and diarrhea: (2) Abdominal pain: -Patient presents with various abdominal complaints: Nausea, vomiting, diarrhea with intermittent episodes of hematemesis, coffee-ground emesis, bright red bleeding per rectum, black stools -Has had several ED evaluations at [facility], [facility], and [facility] for the same complaints over the past 2 months -Several CT ABD/pelvis have been completed without acute findings; will hold on repeating today -Per patient, she was treated for H. pylori and C. difficile in January 2019 at [facility]; will obtain records -On admission labs unremarkable; no leukocytosis, H&H stable, LFTs WNL, lipase WNL -History of duodenal ulcer 2012 -Case discussed with GI (VALENTINA Mercado), pt is now s/p EGD (05/10)- EGD significant for gastritis and H. pylori confirmed on biopsy -discussed with pharmacy appropriate treatment, given her multiple antibiotic allergies, patient is already on doxy, and PPI which we can continue, will add metronidazole and possibly bismuth -possible gastric emptying study to follow -IV PPI twice daily -Stool cultures, C. difficile-pending -PRN Bentyl, Tylenol, Tramadol for abdominal pain; will try to avoid narcotics (3) Hypertensive urgency: -Presenting BP 217/100 -Patient denies prior history of hypertension -started Norvasc 5 mg on admission -PRN labetalol (4) COPD exacerbation: -Patient has diffuse wheezing on exam, saturating well on room air -Solu-Medrol 40 mg IV every 8 hours (avoiding p.o. steroids due to concern of possible PUD) -Empiric doxycycline, nebs -Still diffusely wheezing (but improved), continue above regimen (5) DVT prophylaxis: -SCDs for now due to concerns for possible PUD (6) Discharge planning issues: -Patient reports she is [facility] [place] -Has health insurance however reports she does not have drug coverage -Her PCP is in [place], patient visiting in [place] to sign divorce papers, discussed that she may need to follow-up with PCP here before she leaves for [place] again, she was agreeable -Case management consult (7) Anemia: Current hemoglobin above 11 (stable) but down from 13.3 (05/09) -Normocytic -Likely dilutional, but possibly from a GI bleed loss, EGD yesterday (04/09) positive for gastritis and H. pylori Subjective No acute events overnight. Status post EGD yesterday, continues to complain of abdominal pain, and nausea. Denies any fevers, chills, chest pain or shortness of breath, headache, dizziness/lightheadedness. Review of Systems Review of Systems: All systems reviewed & are unremarkable except as noted in HPI & below ROS per HPI, all other systems reviewed and negative Constitutional: no fever and no chills Respiratory: no cough, no dyspnea and no pain on inspiration Cardiovascular: no chest pain, no dyspnea on exertion, no palpitations and no edema Gastrointestinal: + abdominal pain and + nausea; no vomiting Physical Exam Constitutional: well developed and well nourished; no acute distress Eyes: PERRL, conjunctivae normal, anicteric sclerae EOM intact bilaterally ENMT: external ear and nose normal, oropharynx normal Neck: normal visual inspection Respiratory: normal respiratory effort; no respiratory distress, no labored breathing and no retractions Auscultation: + wheezes (much improved from previous exam) Cardiovascular: RRR, no murmur, no edema Heart Sounds: no gallop Chest (Breasts): Chest: normal inspection of chest Gastrointestinal (Abdomen): Inspection/Auscultation: abdomen normal to inspection and normal bowel sounds; abdomen not distended Pe rcussion/Palpation: + abdomen tender (Mildly tender to palpation in the epigastric area) and abdomen soft; no guarding and abdomen not rigid Musculoskeletal: Head/Neck/Chest: normocephalic, head atraumatic and neck supple Extremities: extremities normal to inspection Skin: no rashes, warm and dry Neurologic: PERRL, EOMI, accommodation nl, no face palsy, no dysarthria moves all extremities Speech / Cognition: normal speech Psychiatric: A+Ox3, euthymic affect Speech: normal rate/rhythm/volume of speech Appears anxious. Lymphatic: no lymphedema Results & Data Vital Signs (Past 12 Hours) Vital Signs Temp Pulse Resp BP BP Pulse Ox 05/11/19 19:02 100 H 18 98 05/11/19 16:00 37.4 C 05/11/19 14:59 89 18 95 05/11/19 14:41 36.8 C 89 18 123/75 95 05/11/19 11:58 37.2 C 106 H 22 156/79 H 90 05/11/19 10:57 91 H 18 98 05/11/19 08:57 96 05/11/19 08:29 37 C 86 24 127/70 86 L 05/11/19 08:00 97 H 05/11/19 07:58 123/74 05/11/19 07:28 89 16 91 Laboratory Results 05/11/19 05/11/19 05/10/19 Range/Units 06:01 06:01 20:05 WBC 6.09 (4.8-10.8) K/uL RBC 3.85 L (4.2-5.4) M/uL Hgb 11.2 L (12.0-16.0) g/dL Hct 35.7 L (37-47) % MCV 92.7 (80-100) fL MCH 29.1 (25-34) pg MCHC 31.4 L (32-36) g/dL RDW Std Deviation 51.9 H (36.4-46.3) fL RDW Coeff of [place] 15.3 H (11.5-14.5) % Plt Count 192 (130-400) K/uL MPV 10.0 (7.4-10.4) fL Immature Gran % (Auto) 0.2 % Neut % (Auto) 91.4 % Lymph % (Auto) 6.9 % [place] % (Auto) 1.5 % Eos % (Auto) 0.0 % Baso % (Auto) 0.0 % Immature Gran # (Auto) 0.01 (0.00-0.02) K/uL Neut # (Auto) 5.57 (1.4-6.5) K/uL Lymph # (Auto) 0.42 L (1.2-3.4) K/uL [place] # (Auto) 0.09 L (0.11-0.59) K/uL Eos # (Auto) 0.00 (0-0.5) K/uL Baso # (Auto) 0.00 (0-0.2) K/uL Sodium 139 (136-145) mmol/L Potassium 4.5 D (3.5-5.1) mmol/L Chloride 107 (98-107) mmol/L Carbon Dioxide 29 (21-32) mmol/L Anion Gap 3.0 (3-11) BUN 11 D (7-18) mg/dl Creatinine 0.69 (0.6-1.2) mg/dl Est Cr Clr Drug Dosing 75.8 ml/min Est GFR ( Amer) 112.8 Est GFR (Non-Af Amer) 97.3 BUN/Creatinine Ratio 15.7 (10-20) Glucose 142 H (70-99) mg/dl POC Glucose 183 H (70-99) Calcium 9.2 (8.5-10.1) mg/dl Medications Administered Current Inpatient Medications Acetaminophen (Tylenol) 650 mg PO Q4H PRN PRN Reason: pain/fever Stop: 06/08/19 15:09 Last Admin: 05/11/19 16:44 Dose: 650 mg Documented by: Albuterol (Duoneb) 3 ml NEB QIDR [facility] Stop: 06/08/19 15:09 Last Admin: 05/11/19 19:02 Dose: 3 ml Documented by: Amlodipine Besylate (Norvasc) 5 mg PO DAILY [facility] Stop: 06/08/19 15:09 Last Admin: 05/11/19 07:41 Dose: 5 mg Documented by: Dicyclomine HCl (Bentyl) 10 mg PO TID PRN PRN Reason: abdominal pain Stop: 06/08/19 15:09 Last Admin: 05/11/19 12:31 Dose: 10 mg Documented by: Hydromorphone HCl (Dilaudid) 0.25 mg IV Q4H PRN PRN Reason: Pain Stop: 05/23/19 20:52 Last Admin: 05/11/19 16:40 Dose: 0.25 mg Documented by: Pantoprazole Sodium 40 mg/ (Syringe) 10 mls @ 5 mls/min IV BID@0900,2100 VIKASH Stop: 06/08/19 12:59 Last Admin: 05/11/19 07:40 Dose: 5 mls/min Documented by: Doxycycline Hyclate 100 mg/ (Dextrose) 110 mls @ 50 mls/hr IV BID VIKASH Stop: 05/16/19 15:59 Last Infusion: 05/11/19 10:01 Dose: Infused Documented by: Methylprednisolone 40 mg/ (Syringe) 0.64 mls @ 1.5 mls/min IV Q8H [facility] Stop: 06/08/19 15:59 Last Admin: 05/11/19 16:29 Dose: 1.5 mls/min Documented by: Promethazine HCl 12.5 mg/ (Sodium Chloride) 50.5 mls @ 202 mls/hr IV Q6H PRN PRN Reason: Nausea And Vomiting Stop: 06/08/19 18:49 Last Infusion: 05/11/19 12:51 Dose: Infused Documented by: Labetalol HCl (Normodyne) 10 mg IV Q8H PRN PRN Reason: HTN Stop: 06/08/19 15:09 Last Admin: 05/09/19 17:05 Dose: 10 mg Documented by: Ondansetron HCl (Zofran) 4 mg IV Q6H PRN PRN Reason: nausea Stop: 06/08/19 15:09 Last Admin: 05/11/19 16:34 Dose: 4 mg Documented by: Fluticasone/Salmeterol (Advair Diskus 250/50) 1 puffs INH BID VIKASH Stop: 06/08/19 20:59 Last Admin: 05/11/19 07:39 Dose: 1 puffs Documented by: Tramadol HCl (Ultram) 50 mg PO Q4H PRN PRN Reason: Pain Stop: 06/08/19 17:35 Last Admin: 05/11/19 13:30 Dose: 50 mg Documented by:
[2019-05-11] MEDS: ACETAMINOPHEN 325 MG TAB PO SCH (20:56)
[2019-05-11] MEDS: metroNIDAZOLE 500 MG TAB PO SCH (20:57)
[2019-05-11] MEDS: DOXYCYCLINE HYCLATE 100 MG CAP PO SCH (20:57)
[2019-05-11] MEDS: BISMUTH SUBSALICYLATE 262 MG CHEW PO SCH (22:02)
[2019-05-12] MEDS: TRAMADOL HCL 50 MG TABLET PO PRN ×5 (00:53→20:27)
[2019-05-12] MEDS: HYDROmorphone INJ 0.5 MG/0.5 ML SYR IV PRN ×6 (01:31→23:32)
[2019-05-12 03:54] LABS: Cdiff Antigen Positive; Cdiff Toxin A+B Negative Cdiff Toxin (Negative)
[2019-05-12] MEDS: ALBUT/IPRATROP 3MG/0.5MG NEB 3 ML VIAL NEB SCH ×4 (06:58→18:53)
--- NOTE | 2019-05-12 07:17 | Hospitalist Progress Note ---
Date of Service May 12, 2019 Assessment & Plan (1) Nausea vomiting and diarrhea: (2) Abdominal pain: Secondary to gastritis, H. pylori infection -Patient presented with various abdominal complaints: Nausea, vomiting, diarrhea with intermittent episodes of hematemesis, coffee-ground emesis, bright red bleeding per rectum, black stools -Has had several ED evaluations at [facility], [facility], and [facility] for the same complaints over the past 2 months -Several CT ABD/pelvis have been completed without acute findings; will hold on repeating today -Per patient, she was treated for H. pylori and C. difficile in January 2019 at [facility]; will obtain records -On admission labs unremarkable; no leukocytosis, H&H stable, LFTs WNL, lipase WNL -History of duodenal ulcer 2012 -Case discussed with GI (VALENTINA Mercado), pt is now s/p EGD (05/10)- EGD significant for gastritis and H. pylori confirmed on biopsy -discussed with pharmacy appropriate treatment, given her multiple antibiotic allergies, patient is already on doxy, and PPI which we can continue, will add metronidazole and Bismuth (started on 05/11 evening) -IV PPI twice daily -Stool cultures, C. difficile-pending -PRN Bentyl, Tylenol, Tramadol for abdominal pain; will try to avoid narcotics -Patient continues to complain of abdominal pain and nausea, difficulty keeping anything down, despite antiemetics (3) Hypertensive urgency: -Presenting BP 217/100 -Patient denies prior history of hypertension -started Norvasc 5 mg on admission -BP possibly elevated due to pain, now better controlled -PRN labetalol (4) COPD exacerbation: -Patient had diffuse wheezing on exam on admission and several days after, now improved, cont. to be on 2L/min -Solu-Medrol 40 mg IV every 8 hours (avoiding p.o. steroids due to concern of possible PUD) -Empiric doxycycline, nebs -Still diffusely wheezing (but improved), continue above regimen (5) DVT prophylaxis: -SCDs for now due to concerns for possible PUD (6) Discharge planning issues: -Patient reports she is currently residing in a [facility] and [place] -Has health insurance however reports she does not have drug coverage -Her PCP is in [place], patient visiting in [place] to sign divorce papers, discussed that she may need to follow-up with PCP here before she leaves for [place] again, she was agreeable -Case management consult (7) Anemia: Current hemoglobin above 11 (stable) but down from 13.3 (05/09) -Normocytic -Likely dilutional, but possibly from a GI bleed loss, EGD on (04/09) positive for gastritis and H. pylori Subjective No acute events overnight. Status post EGD 2 days ago, biopsy positive for H. pylori and started on treatment last night. She continues to complain of ab dominal pain, and nausea. Denies any fevers, chills, chest pain or shortness of breath, headache, dizziness/lightheadedness. Review of Systems Review of Systems: All systems reviewed & are unremarkable except as noted in HPI & below ROS per HPI, all other systems reviewed and negative Constitutional: no fever, no chills and no fatigue Respiratory: no cough and no dyspnea Cardiovascular: no chest pain, no dyspnea on exertion, no palpitations and no edema Gastrointestinal: + abdominal pain, + nausea and + vomiting Physical Exam Physical Exam: Female laying in bed, in no acute distress Constitutional: well developed and well nourished; no acute distress Eyes: PERRL, conjunctivae normal, anicteric sclerae EOM intact bilaterally ENMT: external ear and nose normal, oropharynx normal Poor/missing dentition Neck: normal visual inspection Respiratory: normal respiratory effort; no respiratory distress, no labored breathing and no retractions Auscultation: no wheezes Cardiovascular: RRR, no murmur, no edema Heart Sounds: no gallop Chest (Breasts): Chest: normal inspection of chest Gastrointestinal (Abdomen): Inspection/Auscultation: abdomen normal to inspection and normal bowel sounds; abdomen not distended Percussion/Palpation: + abdomen tender (Mildly tender to palpation in the epigastric area) and abdomen soft; no guarding and abdomen not rigid Musculoskeletal: Head/Neck/Chest: normocephalic, head atraumatic and neck supple Extremities: extremities normal to inspection Skin: no rashes, warm and dry Neurologic: PERRL, EOMI, accommodation nl, no face palsy, no dysarthria moves all extremities Speech / Cognition: normal speech Psychiatric: A+Ox3, euthymic affect Speech: normal rate/rhythm/volume of speech Lymphatic: no lymphedema Results & Data Vital Signs (Past 12 Hours) Vital Signs Temp Pulse Resp BP Pulse Ox 05/12/19 07:07 37.2 C 91 H 18 128/73 95 05/12/19 06:58 74 18 95 05/11/19 23:12 37.0 C 84 19 137/78 98 Laboratory Results 05/12/19 05/11/19 Range/Units 00:55 06:01 Sodium 139 (136-145) mmol/L Potassium 4.5 D (3.5-5.1) mmol/L Chloride 107 (98-107) mmol/L Carbon Dioxide 29 (21-32) mmol/L Anion Gap 3.0 (3-11) BUN 11 D (7-18) mg/dl Creatinine 0.69 (0.6-1.2) mg/dl Est Cr Clr Drug Dosing 75.8 ml/min Est GFR ( Amer) 112.8 Est GFR (Non-Af Amer) 97.3 BUN/Creatinine Ratio 15.7 (10-20) Glucose 142 H (70-99) mg/dl Calcium 9.2 (8.5-10.1) mg/dl Stl C. diff Tox B Gene Positive Cdiff Gene H (Neg) Stl C.difficile Tox A&B Negative Cdiff Toxin (Negative) Medications Administered Current Inpatient Medications Acetaminophen (Tylenol) 650 mg PO Q4HWA [facility] Stop: 06/10/19 19:59 Last Admin: 05/11/19 20:56 Dose: 650 mg Documented by: Albuterol (Duoneb) 3 ml NEB QIDR [facility] Stop: 06/08/19 15:09 Last Admin: 05/12/19 06:58 Dose: 3 ml Documented by: Amlodipine Besylate (Norvasc) 5 mg PO DAILY [facility] Stop: 06/08/19 15:09 Last Admin: 05/11/19 07:41 Dose: 5 mg Documented by: Bismuth Subsalicylate (Pepto-Bismol) 1 tab PO 1000,1500,1700,2200 [facility] Stop: 06/10/19 21:59 Last Admin: 05/11/19 22:02 Dose: 1 tab Documented by: Dicyclomine HCl (Bentyl) 10 mg PO TID PRN PRN Reason: abdominal pain Stop: 06/08/19 15:09 Last Admin: 05/11/19 12:31 Dose: 10 mg Documented by: Doxycycline Hyclate (Vibramycin) 100 mg PO BID [facility]; Protocol Stop: 05/21/19 20:59 Last Admin: 05/11/19 20:57 Dose: 100 mg Documented by: Hydromorphone HCl (Dilaudid) 0.25 mg IV Q4H PRN PRN Reason: Pain Stop: 05/23/19 20:52 Last Admin: 05/12/19 06:41 Dose: 0.25 mg Documented by: Pantoprazole Sodium 40 mg/ (Syringe) 10 mls @ 5 mls/min IV BID@0900,2100 [facility] Stop: 06/08/19 12:59 Last Admin: 05/11/19 20:57 Dose: 5 mls/min Documented by: Methylprednisolone 40 mg/ (Syringe) 0.64 mls @ 1.5 mls/min IV Q8H [facility] Stop: 06/08/19 15:59 Last Admin: 05/11/19 23:40 Dose: 1.5 mls/min Documented by: Promethazine HCl 12.5 mg/ (Sodium Chloride) 50.5 mls @ 202 mls/hr IV Q6H PRN PRN Reason: Nausea And Vomiting Stop: 06/08/19 18:49 Last Infusion: 05/11/19 12:51 Dose: Infused Documented by: Labetalol HCl (Normodyne) 10 mg IV Q8H PRN PRN Reason: HTN Stop: 06/08/19 15:09 Last Admin: 05/09/19 17:05 Dose: 10 mg Documented by: Metronidazole (Flagyl) 500 mg PO TID [facility] Stop: 05/21/19 20:59 Last Admin: 05/11/19 20:57 Dose: 500 mg Documented by: Ondansetron HCl (Zofran) 4 mg IV Q6H PRN PRN Reason: nausea Stop: 06/08/19 15:09 Last Admin: 05/11/19 16:34 Dose: 4 mg Documented by: Fluticasone/Salmeterol (Advair Diskus 250/50) 1 puffs INH BID [facility] Stop: 06/08/19 20:59 Last Admin: 05/11/19 20:56 Dose: 1 puffs Documented by: Tramadol HCl (Ultram) 50 mg PO Q4H PRN PRN Reason: Pain Stop: 06/08/19 17:35 Last Admin: 05/12/19 00:53 Dose: 50 mg Documented by:
[2019-05-12] MEDS: ONDANSETRON INJ 2 MG/ML 2 ML VIAL IV PRN ×2 (08:24→16:27)
[2019-05-12] MEDS: methylPREDNISolone 40 MG in SYRINGE 0 ML IV SCH ×3 (08:24→23:33)
[2019-05-12] MEDS: PANTOprazole 40 MG in SYRINGE 0 ML IV SCH ×2 (08:25→20:28)
[2019-05-12] MEDS: FLUTICASONE/SALMETEROL 250/50 (ADVAIR) 14 PUFF/1 INHALER INH SCH ×2 (08:30→20:29)
[2019-05-12] MEDS: ACETAMINOPHEN 325 MG TAB PO SCH ×4 (08:30→20:29)
[2019-05-12] MEDS: metroNIDAZOLE 500 MG TAB PO SCH ×3 (08:31→20:30)
[2019-05-12] MEDS: AMLODIPINE BESYLATE 5 MG TAB PO SCH (08:31)
[2019-05-12] MEDS: DOXYCYCLINE HYCLATE 100 MG CAP PO SCH ×2 (08:32→20:28)
[2019-05-12] MEDS: DICYCLOMINE HCL 10 MG CAP PO PRN ×2 (09:02→13:40)
[2019-05-12 09:04] LABS: Hematocrit (blood only) 36.1 % (37-47); Hemoglobin 11.3 g/dL (12.0-16.0); Mean Corpuscular Hemoglobin 29.2 pg (25-34); Mean Corpuscular Hgb Conc 31.3 g/dL (32-36); Mean Corpuscular Volume 93.3 fL (80-100); Mean Platelet Volume 9.9 fL (7.4-10.4); Platelet Count 206 K/uL (130-400); RDW Coefficient of Variation 15.1 % (11.5-14.5); Red Blood Count 3.87 M/uL (4.2-5.4); White Blood Count 7.75 K/uL (4.8-10.8)
[2019-05-12 09:46] LABS: BUN Creatinine Ratio 10.8 (10-20); Calcium 9.1 mg/dl (8.5-10.1); Creatinine Clr Calc Pharmacy 60.8 ml/min; Est GFR (African American) 87.5; Est GFR (Non-African American) 75.5; Potassium 4.1 mmol/L (3.5-5.1)
[2019-05-12] MEDS: BISMUTH SUBSALICYLATE 262 MG CHEW PO SCH ×4 (10:08→22:10)
[2019-05-13] MEDS: HYDROmorphone INJ 0.5 MG/0.5 ML SYR IV PRN ×5 (03:31→20:21)
[2019-05-13] MEDS: ALBUT/IPRATROP 3MG/0.5MG NEB 3 ML VIAL NEB SCH ×4 (07:33→19:13)
[2019-05-13] MEDS: ACETAMINOPHEN 325 MG TAB PO SCH ×4 (08:05→20:05)
[2019-05-13] MEDS: FLUTICASONE/SALMETEROL 250/50 (ADVAIR) 14 PUFF/1 INHALER INH SCH ×2 (08:05→20:40)
[2019-05-13] MEDS: methylPREDNISolone 40 MG in SYRINGE 0 ML IV SCH (08:05)
[2019-05-13] MEDS: DOXYCYCLINE HYCLATE 100 MG CAP PO SCH ×2 (08:06→20:41)
[2019-05-13] MEDS: metroNIDAZOLE 500 MG TAB PO SCH ×3 (08:06→20:41)
[2019-05-13] MEDS: PANTOprazole 40 MG in SYRINGE 0 ML IV SCH ×2 (08:06→20:40)
[2019-05-13] MEDS: AMLODIPINE BESYLATE 5 MG TAB PO SCH (08:06)
[2019-05-13] MEDS: TRAMADOL HCL 50 MG TABLET PO PRN ×2 (10:53→17:51)
[2019-05-13] MEDS: ONDANSETRON INJ 2 MG/ML 2 ML VIAL IV PRN (10:53)
[2019-05-13] MEDS: BISMUTH SUBSALICYLATE 262 MG CHEW PO SCH ×4 (10:53→21:29)
--- NOTE | 2019-05-13 13:02 | Hospitalist Progress Note ---
Date of Service May 13, 2019 Assessment & Plan (1) Nausea vomiting and diarrhea: (2) Abdominal pain: Secondary to gastritis, H. pylori infection -Patient presented with various abdominal complaints: Nausea, vomiting, diarrhea with intermittent episodes of hematemesis, coffee-ground emesis, bright red bleeding per rectum, black stools -Has had several ED evaluations at [facility], [facility], and [facility] for the same complaints over the past 2 months -Several CT ABD/pelvis have been completed without acute findings; will hold on repeating today -Per patient, she was treated for H. pylori and C. difficile in January 2019 at [facility]; will obtain records -On admission labs unremarkable; no leukocytosis, H&H stable, LFTs WNL, lipase WNL -History of duodenal ulcer 2012 -Case discussed with GI (VALENTINA Mercado), pt is now s/p EGD (05/10)- EGD significant for gastritis and H. pylori confirmed on biopsy -discussed with pharmacy appropriate treatment, given her multiple antibiotic allergies, patient is already on doxy, and PPI which we can continue, will add metronidazole and Bismuth (started on 05/11 evening, will need 14 day treatment course) -IV PPI twice daily -Stool cultures - negative, C. difficile toxin - negative (but pt seems to be a carrier) -PRN Bentyl, Tylenol, Tramadol for abdominal pain; will try to avoid narcotics -Patient continues to complain of abdominal pain and nausea, difficulty keeping anything down, despite antiemetics (3) Hypertensive urgency: -Presenting BP 217/100 -Patient denies prior history of hypertension -started Norvasc 5 mg on admission -BP possibly elevated due to pain, now much better controlled -PRN labetalol (4) COPD exacerbation: -Patient had diffuse wheezing on exam on admission and several days after, now much improved, cont. to be on 2L/min -Solu-Medrol 40 mg IV every 8 hours (avoiding p.o. steroids due to concern of po ssible PUD), will d/c IV solumedrol -Empiric doxycycline, nebs (5) DVT prophylaxis: -SCDs for now due to concerns for possible PUD (6) Discharge planning issues: -Patient reports she is currently residing in a long term and [place] -Has health insurance however reports she does not have drug coverage -Her PCP is in [place], patient visiting in [place] to sign divorce papers, discussed that she may need to follow-up with PCP here before she leaves for [place] again, she was agreeable -Case management consulted (7) Anemia: Current hemoglobin above 11 (stable) but down from 13.3 (05/09) -Normocytic -Likely dilutional, but possibly from a GI bleed loss, EGD on (04/09) positive for gastritis and H. pylori Subjective No acute events overnight. Status post EGD, biopsy positive for H. pylori and started on treatment. She continues to complain of abdominal pain, and nausea, vomited again today, unable to keep anything down despite taking mostly liquids, very slowly, and using antiemetics. Denies any fevers, chills, chest pain or shortness of breath, headache, dizziness/lightheadedness. Review of Systems Review of Systems: All systems reviewed & are unremarkable except as noted in HPI & below ROS per HPI, all other systems reviewed and negative Constitutional: no fever and no chills Respiratory: no cough, no dyspnea and no pain on inspiration Cardiovascular: no chest pain, no dyspnea on exertion, no palpitations and no edema Gastrointestinal: + abdominal pain, + nausea and + vomiting Genitourinary: no dysuria Physical Exam Physical Exam: Elderly female lying in bed, in no acute distress Constitutional: well developed and well nourished; no acute distress Eyes: PERRL, conjunctivae normal, anicteric sclerae EOM intact bilaterally ENMT: external ear and nose normal, oropharynx normal Neck: normal visual inspection Respiratory: normal respiratory effort; no respiratory distress, no labored breathing and no retractions Auscultation: no crackles, no rhonchi and no wheezes Cardiovascular: RRR, no murmur, no edema Heart Sounds: no gallop Chest (Breasts): Chest: normal inspection of chest Gastrointestinal (Abdomen): Inspection/Auscultation: abdomen normal to inspection and normal bowel sounds; abdomen not distended Percussion/Palpation: + abdomen tender (Mildly tender to palpation in the epigastric area) and abdomen soft; no guarding and abdomen not rigid Musculoskeletal: Head/Neck/Chest: normocephalic, head atraumatic and neck supple Extremities: extremities normal to inspection Skin: no rashes, warm and dry Neurologic: PERRL, EOMI, accommodation nl, no face palsy, no dysarthria moves all extremities Speech / Cognition: normal speech Psychiatric: A+Ox3, euthymic affect Speech: normal rate/rhythm/volume of speech Lymphatic: no lymphedema Results & Data Vital Signs (Past 12 Hours) Vital Signs Temp Pulse Resp BP Pulse Ox 05/13/19 11:30 101 H 18 97 05/13/19 07:37 93 H 16 93 05/13/19 07:00 36.8 C 80 18 158/79 H 98 Medications Administered Current Inpatient Medications Acetaminophen (Tylenol) 650 mg PO Q4HWA [facility] Stop: 06/10/19 19:59 Last Admin: 05/13/19 11:58 Dose: 650 mg Documented by: Albuterol (Duoneb) 3 ml NEB QIDR [facility] Stop: 06/08/19 15:09 Last Admin: 05/13/19 11:30 Dose: 3 ml Documented by: Amlodipine Besylate (Norvasc) 5 mg PO DAILY [facility] Stop: 06/08/19 15:09 Last Admin: 05/13/19 08:06 Dose: 5 mg Documented by: Bismuth Subsalicylate (Pepto-Bismol) 1 tab PO 1000,1500,1700,2200 [facility] Stop: 06/10/19 21:59 Last Admin: 05/13/19 10:53 Dose: 1 tab Documented by: Dicyclomine HCl (Bentyl) 10 mg PO TID PRN PRN Reason: abdominal pain Stop: 06/08/19 15:09 Last Admin: 05/12/19 13:40 Dose: 10 mg Documented by: Doxycycline Hyclate (Vibramycin) 100 mg PO BID [facility]; Protocol Stop: 05/21/19 20:59 Last Admin: 05/13/19 08:06 Dose: 100 mg Documented by: Hydromorphone HCl (Dilaudid) 0.25 mg IV Q4H PRN PRN Reason: Pain Stop: 05/23/19 20:52 Last Admin: 05/13/19 11:58 Dose: 0.25 mg Documented by: Pantoprazole Sodium 40 mg/ (Syringe) 10 mls @ 5 mls/min IV BID@0900,2100 [facility] Stop: 06/08/19 12:59 Last Admin: 05/13/19 08:06 Dose: 5 mls/min Documented by: Methylprednisolone 40 mg/ (Syringe) 0.64 mls @ 1.5 mls/min IV Q8H [facility] Stop: 06/08/19 15:59 Last Admin: 05/13/19 08:05 Dose: 1.5 mls/min Documented by: Promethazine HCl 12.5 mg/ (Sodium Chloride) 50.5 mls @ 202 mls/hr IV Q6H PRN PRN Reason: Nausea And Vomiting Stop: 06/08/19 18:49 Last Infusion: 05/11/19 12:51 Dose: Infused Documented by: Labetalol HCl (Normodyne) 10 mg IV Q8H PRN PRN Reason: HTN Stop: 06/08/19 15:09 Last Admin: 05/09/19 17:05 Dose: 10 mg Documented by: Metronidazole (Flagyl) 500 mg PO TID [facility] Stop: 05/21/19 20:59 Last Admin: 05/13/19 08:06 Dose: 500 mg Documented by: Ondansetron HCl (Zofran) 4 mg IV Q6H PRN PRN Reason: nausea Stop: 06/08/19 15:09 Last Admin: 05/13/19 10:53 Dose: 4 mg Documented by: Fluticasone/Salmeterol (Advair Diskus 250/50) 1 puffs INH BID [facility] Stop: 06/08/19 20:59 Last Admin: 05/13/19 08:05 Dose: 1 puffs Documented by: Tramadol HCl (Ultram) 50 mg PO Q4H PRN PRN Reason: Pain Stop: 06/08/19 17:35 Last Admin: 05/13/19 10:53 Dose: 50 mg Documented by:
[2019-05-13] MEDS: PROMETHAZINE HCL 12.5 MG in SODIUM CHLORIDE 0.9% 50 ML IV PRN (14:02)
[2019-05-14] MEDS: HYDROmorphone INJ 0.5 MG/0.5 ML SYR IV PRN ×6 (00:42→21:17)
[2019-05-14] MEDS: ONDANSETRON INJ 2 MG/ML 2 ML VIAL IV PRN (05:03)
[2019-05-14 05:44] LABS: Hematocrit (blood only) 35.7 % (37-47); Hemoglobin 11.4 g/dL (12.0-16.0); Mean Corpuscular Hemoglobin 29.4 pg (25-34); Mean Corpuscular Hgb Conc 31.9 g/dL (32-36); Mean Platelet Volume 9.5 fL (7.4-10.4); Platelet Count 182 K/uL (130-400); RDW Coefficient of Variation 15.2 % (11.5-14.5); RDW Standard Deviation 51.3 fL (36.4-46.3); Red Blood Count 3.88 M/uL (4.2-5.4); White Blood Count 6.34 K/uL (4.8-10.8)
[2019-05-14 06:18] LABS: BUN Creatinine Ratio 9.4 (10-20); Calcium 8.7 mg/dl (8.5-10.1); Creatinine Clr Calc Pharmacy 63.8 ml/min; Est GFR (African American) 92.7; Potassium 3.5 mmol/L (3.5-5.1)
[2019-05-14] MEDS: ALBUT/IPRATROP 3MG/0.5MG NEB 3 ML VIAL NEB SCH ×4 (07:14→22:05)
[2019-05-14] MEDS: ACETAMINOPHEN 325 MG TAB PO SCH ×4 (08:27→20:46)
[2019-05-14] MEDS: FLUTICASONE/SALMETEROL 250/50 (ADVAIR) 14 PUFF/1 INHALER INH SCH ×2 (08:27→20:45)
[2019-05-14] MEDS: metroNIDAZOLE 500 MG TAB PO SCH ×3 (08:28→20:45)
[2019-05-14] MEDS: PANTOprazole 40 MG in SYRINGE 0 ML IV SCH (08:28)
[2019-05-14] MEDS: AMLODIPINE BESYLATE 5 MG TAB PO SCH (08:28)
[2019-05-14] MEDS: DOXYCYCLINE HYCLATE 100 MG CAP PO SCH ×2 (08:28→20:45)
[2019-05-14] MEDS: BISMUTH SUBSALICYLATE 262 MG CHEW PO SCH ×4 (08:57→21:17)
[2019-05-14] MEDS: PROMETHAZINE HCL 12.5 MG in SODIUM CHLORIDE 0.9% 50 ML IV PRN ×2 (08:58→16:23)
[2019-05-14] MEDS ORDERED: POTASSIUM CHLORIDE 20 MEQ TABCR PO STA (09:22)
--- NOTE | 2019-05-14 09:22 | Hospitalist Progress Note ---
Date of Service May 14, 2019 Assessment & Plan (1) Nausea vomiting and diarrhea: (2) Abdominal pain: Secondary to gastritis, H. pylori infection -Patient presented with various abdominal complaints: Nausea, vomiting, diarrhea with intermittent episodes of hematemesis, coffee-ground emesis, bright red bleeding per rectum, black stools -Has had several ED evaluations at [facility], [facility], and [facility] for the same complaints over the past 2 months -Several CT ABD/pelvis have been completed without acute findings; will hold on repeating today -Per patient, she was treated for H. pylori and C. difficile in January 2019 at [facility]; will obtain records -On admission labs unremarkable; no leukocytosis, H&H stable, LFTs WNL, lipase WNL -History of duodenal ulcer 2012 -Case discussed with GI (VALENTINA Mercado), pt is now s/p EGD (05/10)- EGD significant for gastritis and H. pylori confirmed on biopsy -discussed with pharmacy appropriate treatment, given her multiple antibiotic allergies, patient is already on doxy, and PPI which we can continue, added metronidazole and Bismuth (started on 05/11 evening, will need 14 day treatment course) -IV PPI twice daily -Stool cultures - negative, C. difficile toxin - negative (but pt seems to be a carrier) -PRN Bentyl, Tylenol, Tramadol for abdominal pain; will try to avoid narcotics -Patient continues to complain of abdominal pain and nausea, difficulty keeping anything down, despite antiemetics Nausea, vomiting, diarrhea -Patient is already using antiemetics, also recommended to have very light diet, patient can have tea, coffee, water, juices she should avoid dairy products. She can have bananas, rice, avocado, cooked carrots, baked chicken. She should avoid fried foods, sauces, gravy, dairy products while she has diarrhea. (3) Hypertensive urgency: -Presenting BP 217/100 -Patient denies prior history of hypertension -started Norvasc 5 mg on admission -BP possibly elevated due to pain, now much better controlled -PRN labetalol (4) COPD exacerbation: -Patient had diffuse wheezing on exam on admission and several days after, now much improved, cont. to be on 2L/min -Solu-Medrol 40 mg IV every 8 hours (avoiding p.o. steroids due to concern of possible PUD), stopped IV solumedrol yesterday -Empiric doxycycline, nebs - still requiring 2L/min of suppl. O2 , will try to wean off, if not able to, pt will need 2 step study/ ambulatory pulse ox study (5) DVT prophylaxis: -SCDs for now due to concerns for possible PUD (6) Discharge planning issues: -Patient reports she is currently residing in a skilled nursing and [place] -Has health insurance however reports she does not have drug coverage -Her PCP is in [place], patient visiting in [place] to sign divorce papers, discussed that she may need to follow-up with PCP here before she leaves for [place] again, she was agreeable -Case management consulted (7) Anemia: Current hemoglobin above 11 (stable) but down from 13.3 (05/09) -Normocytic -Likely dilutional, but possibly from a GI bleed loss, EGD on (04/09) positive for gastritis and H. pylori Subjective No acute events overnight. Status post EGD, biopsy positive for H. pylori and started on treatment. She continues to complain of abdominal pain, and nausea, vomited again today, unable to keep anything down despite taking mostly liquids, very slowly, and using antiemetics. Also has diarrhea today. Denies any fevers, chills, chest pain or shortness of breath, headache, dizziness/lightheadedness. Discussed in detail her diet. Recommend brat diet, bananas, rice, cooked carrots, avocados, toast. She can have chicken broth, or baked chicken. She should avoid any fried foods, gravy, sauces and dairy products. She should also eat very slowly, drinking small sips. Review of Systems Review of Systems: ROS per HPI, all other systems reviewed and negative Constitutional: no fever and no chills Respiratory: no cough and no dyspnea Gastrointestinal: + abdominal pain, + nausea, + vomiting and + diarrhea/loose stools Physical Exam Constitutional: well developed and well nourished; no acute distress Eyes: PERRL, conjunctivae normal, anicteric sclerae EOM intact bilaterally ENMT: external ear and nose normal, oropharynx normal Neck: normal visual inspection Respiratory: normal respiratory effort; no respiratory distress, no labored breathing and no retractions Auscultation: no crackles, no rhonchi and no wheezes Cardiovascular: RRR, no murmur, no edema Heart Sounds: no gallop Chest (Breasts): Chest: normal inspection of chest Gastrointestinal (Abdomen): Inspection/Auscultation: abdomen normal to inspection and normal bowel sounds; abdomen not distended Percussion/Palpation: + abdomen tender (Mildly tender to palpation in the epigastric area) and abdomen soft; no guarding and abdomen not rigid Musculoskeletal: Head/Neck/Chest: normocephalic, head atraumatic and neck supple Extremities: extremities normal to inspection Skin: no rashes, warm and dry Neurologic: PERRL, EOMI, accommodation nl, no face palsy, no dysarthria moves all extremities Speech / Cognition: normal speech Psychiatric: A+Ox3, euthymic affect Speech: normal rate/rhythm/volume of speech Lymphatic: no lymphedema Results & Data Vital Signs (Past 12 Hours) Vital Signs Temp Pulse Resp BP Pulse Ox 05/14/19 07:30 37.1 C 72 20 137/76 100 05/13/19 23:38 36.8 C 75 20 126/68 96 Laboratory Results 05/14/19 05/14/19 Range/Units 05:29 05:29 WBC 6.34 (4.8-10.8) K/uL RBC 3.88 L (4.2-5.4) M/uL Hgb 11.4 L (12.0-16.0) g/dL Hct 35.7 L (37-47) % MCV 92.0 (80-100) fL MCH 29.4 (25-34) pg MCHC 31.9 L (32-36) g/dL RDW Std Deviation 51.3 H (36.4-46.3) fL RDW Coeff of [place] 15.2 H (11.5-14.5) % Plt Count 182 (130-400) K/uL MPV 9.5 (7.4-10.4) fL Sodium 141 (136-145) mmol/L Potassium 3.5 (3.5-5.1) mmol/L Chloride 103 (98-107) mmol/L Carbon Dioxide 34 H (21-32) mmol/L Anion Gap 4.0 (3-11) BUN 8 (7-18) mg/dl Creatinine 0.82 (0.6-1.2) mg/dl Est Cr Clr Drug Dosing 63.8 ml/min Est GFR ( Amer) 92.7 Est GFR (Non-Af Amer) 80.0 BUN/Creatinine Ratio 9.4 L (10-20) Glucose 94 (70-99) mg/dl Calcium 8.7 (8.5-10.1) mg/dl Medications Administered Current Inpatient Medications Acetaminophen (Tylenol) 650 mg PO Q4HWA [facility] Stop: 06/10/19 19:59 Last Admin: 05/14/19 08:27 Dose: 650 mg Documented by: Albuterol (Duoneb) 3 ml NEB QIDR [facility] Stop: 06/08/19 15:09 Last Admin: 05/14/19 07:14 Dose: Not Given Documented by: Amlodipine Besylate (Norvasc) 5 mg PO DAILY [facility] Stop: 06/08/19 15:09 Last Admin: 05/14/19 08:28 Dose: 5 mg Documented by: Bismuth Subsalicylate (Pepto-Bismol) 1 tab PO 1000,1500,1700,2200 [facility] Stop: 06/10/19 21:59 Last Admin: 05/14/19 08:57 Dose: 1 tab Documented by: Dicyclomine HCl (Bentyl) 10 mg PO TID PRN PRN Reason: abdominal pain Stop: 06/08/19 15:09 Last Admin: 05/12/19 13:40 Dose: 10 mg Documented by: Doxycycline Hyclate (Vibramycin) 100 mg PO BID [facility]; Protocol Stop: 05/21/19 20:59 Last Admin: 05/14/19 08:28 Dose: 100 mg Documented by: Hydromorphone HCl (Dilaudid) 0.25 mg IV Q4H PRN PRN Reason: Pain Stop: 05/23/19 20:52 Last Admin: 05/14/19 08:57 Dose: 0.25 mg Documented by: Pantoprazole Sodium 40 mg/ (Syringe) 10 mls @ 5 mls/min IV BID@0900,2100 [facility] Stop: 06/08/19 12:59 Last Admin: 05/14/19 08:28 Dose: 5 mls/min Documented by: Promethazine HCl 12.5 mg/ (Sodium Chloride) 50.5 mls @ 202 mls/hr IV Q6H PRN PRN Reason: Nausea And Vomiting Stop: 06/08/19 18:49 Last Admin: 05/14/19 08:58 Dose: 100 mls/hr Documented by: Labetalol HCl (Normodyne) 10 mg IV Q8H PRN PRN Reason: HTN Stop: 06/08/19 15:09 Last Admin: 05/09/19 17:05 Dose: 10 mg Documented by: Metronidazole (Flagyl) 500 mg PO TID [facility] Stop: 05/21/19 20:59 Last Admin: 05/14/19 08:28 Dose: 500 mg Documented by: Ondansetron HCl (Zofran) 4 mg IV Q6H PRN PRN Reason: nausea Stop: 06/08/19 15:09 Last Admin: 05/14/19 05:03 Dose: 4 mg Documented by: Fluticasone/Salmeterol (Advair Diskus 250/50) 1 puffs INH BID [facility] Stop: 06/08/19 20:59 Last Admin: 05/14/19 08:27 Dose: 1 puffs Documented by: Tramadol HCl (Ultram) 50 mg PO Q4H PRN PRN Reason: Pain Stop: 06/08/19 17:35 Last Admin: 05/13/19 17:51 Dose: 50 mg Documented by:
[2019-05-14] MEDS: DICYCLOMINE HCL 10 MG CAP PO PRN (10:11)
[2019-05-14] MEDS: TRAMADOL HCL 50 MG TABLET PO PRN ×2 (11:17→15:56)
[2019-05-14] MEDS: PANTOprazole 40 MG TAB PO SCH (20:45)
[2019-05-15] MEDS: HYDROmorphone INJ 0.5 MG/0.5 ML SYR IV PRN ×5 (01:09→19:51)
[2019-05-15] MEDS: TRAMADOL HCL 50 MG TABLET PO PRN ×2 (05:15→20:38)
[2019-05-15] MEDS: ALBUT/IPRATROP 3MG/0.5MG NEB 3 ML VIAL NEB SCH ×3 (07:30→20:19)
[2019-05-15] MEDS: metroNIDAZOLE 500 MG TAB PO SCH ×3 (08:51→20:38)
[2019-05-15] MEDS: FLUTICASONE/SALMETEROL 250/50 (ADVAIR) 14 PUFF/1 INHALER INH SCH ×2 (08:51→20:37)
[2019-05-15] MEDS: ACETAMINOPHEN 325 MG TAB PO SCH ×4 (08:51→20:37)
[2019-05-15] MEDS: PANTOprazole 40 MG TAB PO SCH ×2 (08:51→20:38)
[2019-05-15] MEDS: AMLODIPINE BESYLATE 5 MG TAB PO SCH (08:51)
[2019-05-15] MEDS: DOXYCYCLINE HYCLATE 100 MG CAP PO SCH (08:52)
[2019-05-15] MEDS: DICYCLOMINE HCL 10 MG CAP PO PRN (09:10)
[2019-05-15] MEDS: PROMETHAZINE HCL 12.5 MG in SODIUM CHLORIDE 0.9% 50 ML IV PRN ×2 (09:10→20:05)
[2019-05-15] MEDS: BISMUTH SUBSALICYLATE 262 MG CHEW PO SCH ×3 (09:32→22:06)
--- NOTE | 2019-05-15 12:34 | Hospitalist Progress Note ---
Date of Service May 15, 2019 Assessment & Plan (1) Nausea vomiting and diarrhea: (2) Abdominal pain: Secondary to gastritis, H. pylori infection -Patient presented with various abdominal complaints: Nausea, vomiting, diarrhea with intermittent episodes of hematemesis, coffee-ground emesis, bright red bleeding per rectum, black stools -Has had several ED evaluations at [facility], [facility], and [facility] for the same complaints over the past 2 months -Several CT ABD/pelvis have been completed without acute findings; will hold on repeating today -Per patient, she was treated for H. pylori and C. difficile in January 2019 at [facility]; will obtain records -On admission labs unremarkable; no leukocytosis, H&H stable, LFTs WNL, lipase WNL -History of duodenal ulcer 2012 -Case discussed with GI (VALENTINA Mercado), pt is now s/p EGD (05/10)- EGD significant for gastritis and H. pylori confirmed on biopsy -discussed with pharmacy appropriate treatment, given her multiple antibiotic allergies, patient is already on doxy, and PPI which we can continue, added metronidazole and Bismuth (started on 05/11 evening, will need 14 day treatment course) -IV PPI twice daily -Stool cultures - negative, C. difficile toxin - negative (but pt seems to be a carrier) -PRN Bentyl, Tylenol, Tramadol for abdominal pain; will try to avoid narcotics -Patient continues to complain of abdominal pain and nausea, difficulty keeping anything down, despite antiemetics Nausea, vomiting, diarrhea -Patient is already using antiemetics, also recommended to have very light diet, patient can have tea, coffee, water, juices she should avoid dairy products. She can have bananas, rice, avocado, cooked carrots, baked chicken. She should avoid fried foods, sauces, gravy, dairy products while she has diarrhea. (3) Hypertensive urgency: -Presenting BP 217/100 -Patient denies prior history of hypertension -started Norvasc 5 mg on admission -BP possibly elevated due to pain, now well controlled (4) COPD exacerbation: -Patient had diffuse wheezing on exam on admission and several days after, now resolved, was on 2L/min, now breathing comfortably on room air -Solu-Medrol 40 mg IV every 8 hours (avoiding p.o. steroids due to concern of possible PUD), stopped IV solumedrol - Empiric doxycycline, nebs - will d/c doxy bid (pt will cont. to take once daily dose for H.pylori) - if cont. to use suppl. O2, will need 2 step study/ ambulatory pulse ox study before discharge - once she is not having nausea/vomiting, she should re-start using her bipap at night (5) DVT prophylaxis: -SCDs for now due to concerns for possible PUD (6) Discharge planning issues: -Patient reports she is currently residing in a [facility] and [place] -Has health insurance however reports she does not have drug coverage -Her PCP is in [place], patient visiting in [place] to sign divorce papers, discussed that she may need to follow-up with PCP here before she leaves for [place] again, she was agreeable -Case management consulted (7) Anemia: Current hemoglobin above 11 (stable) but down from 13.3 (05/09) -Normocytic -Likely dilutional, but possibly from a GI bleed loss, EGD on (04/09) positive for gastritis and H. pylori Subjective No acute events overnight. Status post EGD, biopsy positive for H. pylori and started on treatment. She continues to have abdominal pain, nausea, vomiting, and diarrhea. Denies any fevers, chills, chest pain or shortness of breath, headache, dizziness/lightheadedness. Discussed in detail her diet. Recommend brat diet, bananas, rice, cooked carrots, avocados, toast. She can have chicken broth, or baked chicken. She should avoid any fried or heavy greasy foods, gravy, sauces and dairy products. She should also eat very slowly, drinking small sips. Review of Systems Review of Systems: All systems reviewed & are unremarkable except as noted in HPI & below Constitutional: no fever, no chills and no fatigue Respiratory: no cough, no dyspnea and no pain on inspiration Cardiovascular: no chest pain, no radiating jaw, neck or arm pain, no dyspnea on exertion, no palpitations and no edema Gastrointestinal: + abdominal pain, + nausea, + vomiting and + diarrhea/loose stools Physical Exam Constitutional: well developed and well nourished; no acute distress Eyes: PERRL, conjunctivae normal, anicteric sclerae EOM intact bilaterally ENMT: external ear and nose normal, oropharynx normal Neck: normal visual inspection Respiratory: normal respiratory effort; no respiratory distress, no labored breathing and no retractions Auscultation: no crackles, no rhonchi and no wheezes Cardiovascular: RRR, no murmur, no edema Heart Sounds: no gallop Chest (Breasts): Chest: normal inspection of chest Gastrointestinal (Abdomen): Inspection/Auscultation: abdomen normal to inspection and normal bowel sounds; abdomen not distended Percussion/Palpation: + abdomen tender (Mildly tender to palpation in the epigastric area) and abdomen soft; no guarding and abdomen not rigid Musculoskeletal: Head/Neck/Chest: normocephalic, head atraumatic and neck supple Extremities: extremities normal to inspection Skin: no rashes, warm and dry Neurologic: PERRL, EOMI, accommodation nl, no face palsy, no dysarthria moves all extremities Speech / Cognition: normal speech Psychiatric: A+Ox3, euthymic affect Speech: normal rate/rhythm/volume of speech Lymphatic: no lymphedema Results & Data Vital Signs (Past 12 Hours) Vital Signs Temp Pulse Resp BP Pulse Ox 05/15/19 06:52 37.0 C 88 20 162/86 H 96 Medications Administered Current Inpatient Medications Acetaminophen (Tylenol) 650 mg PO Q4HWA [facility] Stop: 06/10/19 19:59 Last Admin: 05/15/19 08:51 Dose: 650 mg Documented by: Albuterol (Duoneb) 3 ml NEB TIDR [facility] Stop: 06/13/19 18:59 Last Admin: 05/15/19 07:30 Dose: Not Given Documented by: Amlodipine Besylate (Norvasc) 5 mg PO DAILY [facility] Stop: 06/08/19 15:09 Last Admin: 05/15/19 08:51 Dose: 5 mg Documented by: Bismuth Subsalicylate (Pepto-Bismol) 1 tab PO 1000,1500,1700,2200 [facility] Stop: 06/10/19 21:59 Last Admin: 05/15/19 09:32 Dose: 1 tab Documented by: Dicyclomine HCl (Bentyl) 10 mg PO TID PRN PRN Reason: abdominal pain Stop: 06/08/19 15:09 Last Admin: 05/15/19 09:10 Dose: 10 mg Documented by: Doxycycline Hyclate (Vibramycin) 100 mg PO BID [facility]; Protocol Stop: 05/21/19 20:59 Last Admin: 05/15/19 08:52 Dose: 100 mg Documented by: Hydromorphone HCl (Dilaudid) 0.25 mg IV Q4H PRN PRN Reason: Pain Stop: 05/23/19 20:52 Last Admin: 05/15/19 10:42 Dose: 0.25 mg Documented by: Promethazine HCl 12.5 mg/ (Sodium Chloride) 50.5 mls @ 202 mls/hr IV Q6H PRN PRN Reason: Nausea And Vomiting Stop: 06/08/19 18:49 Last Infusion: 05/15/19 09:32 Dose: 0 mls/hr Documented by: Labetalol HCl (Normodyne) 10 mg IV Q8H PRN PRN Reason: HTN Stop: 06/08/19 15:09 Last Admin: 05/09/19 17:05 Dose: 10 mg Documented by: Metronidazole (Flagyl) 500 mg PO TID [facility] Stop: 05/21/19 20:59 Last Admin: 05/15/19 08:51 Dose: 500 mg Documented by: Ondansetron HCl (Zofran) 4 mg IV Q6H PRN PRN Reason: nausea Stop: 06/08/19 15:09 Last Admin: 05/14/19 05:03 Dose: 4 mg Documented by: Pantoprazole Sodium (Protonix) 40 mg PO BID [facility]; Protocol Stop: 06/13/19 20:59 Last Admin: 05/15/19 08:51 Dose: 40 mg Documented by: Fluticasone/Salmeterol (Advair Diskus 250/50) 1 puffs INH BID [facility] Stop: 06/08/19 20:59 Last Admin: 05/15/19 08:51 Dose: 1 puffs Documented by: Tramadol HCl (Ultram) 50 mg PO Q4H PRN PRN Reason: Pain Stop: 06/08/19 17:35 Last Admin: 05/15/19 05:15 Dose: 50 mg Documented by:
[2019-05-16] MEDS: HYDROmorphone INJ 0.5 MG/0.5 ML SYR IV PRN ×5 (00:25→18:57)
[2019-05-16] MEDS: TRAMADOL HCL 50 MG TABLET PO PRN ×3 (02:35→12:48)
[2019-05-16] MEDS: ONDANSETRON INJ 2 MG/ML 2 ML VIAL IV PRN ×2 (05:03→14:18)
[2019-05-16] MEDS: ALBUT/IPRATROP 3MG/0.5MG NEB 3 ML VIAL NEB SCH (08:01)
[2019-05-16] MEDS: PANTOprazole 40 MG TAB PO SCH ×2 (08:51→20:14)
[2019-05-16] MEDS: PROMETHAZINE HCL 12.5 MG in SODIUM CHLORIDE 0.9% 50 ML IV PRN ×2 (08:55→18:56)
[2019-05-16] MEDS: DICYCLOMINE HCL 10 MG CAP PO PRN (08:56)
[2019-05-16] MEDS: metroNIDAZOLE 500 MG TAB PO SCH ×3 (08:56→20:14)
[2019-05-16] MEDS: AMLODIPINE BESYLATE 5 MG TAB PO SCH (08:56)
[2019-05-16] MEDS: ACETAMINOPHEN 325 MG TAB PO SCH ×4 (08:59→20:13)
[2019-05-16] MEDS: DOXYCYCLINE HYCLATE 100 MG CAP PO SCH (08:59)
[2019-05-16] MEDS: FLUTICASONE/SALMETEROL 250/50 (ADVAIR) 14 PUFF/1 INHALER INH SCH ×2 (09:00→20:13)
[2019-05-16] MEDS: BISMUTH SUBSALICYLATE 262 MG CHEW PO SCH ×4 (10:09→21:57)
--- NOTE | 2019-05-16 11:02 | Hospitalist Progress Note ---
Date of Service May 16, 2019 Assessment & Plan (1) Nausea vomiting and diarrhea: (2) Abdominal pain: Secondary to gastritis, H. pylori infection -Patient presented with various abdominal complaints: Nausea, vomiting, diarrhea with intermittent episodes of hematemesis, coffee-ground emesis, bright red bleeding per rectum, black stools -Has had several ED evaluations at [facility], [facility], and [facility] for the same complaints over the past 2 months -Several CT ABD/pelvis have been completed without acute findings; will hold on repeating for now -Per patient, she was treated for H. pylori and C. difficile in January 2019 at [facility] -On admission labs unremarkable; no leukocytosis, H&H stable, LFTs WNL, lipase WNL -History of duodenal ulcer 2012 -Case discussed with GI (VALENTINA Mercado), pt is now s/p EGD (05/10)- EGD significant for gastritis and H. pylori confirmed on biopsy -discussed with pharmacy appropriate treatment, given her multiple antibiotic allergies, patient is already on doxy, and PPI which we can continue, added metronidazole and Bismuth (started on 05/11 evening, will need 14 day treatment course) -IV PPI twice daily -Stool cultures - negative, C. difficile toxin - negative (but pt seems to be a carrier) -PRN Bentyl, Tylenol, Tramadol for abdominal pain; will try to avoid narcotics -Patient continues to complain of abdominal pain and nausea, difficulty keeping anything down, despite antiemetics -Patient is certainly clinically improving, today she said that she could keep most of her food down however still vomited.. Discussed with her discharge and follow-up, she is currently scheduled to follow-up in [place] with Dr. Carrasco on May 19 (Wednesday) at 11:05 am. -She is not established here, her PCP is in [place], however she agrees to follow-up in this area before she goes to [place] again, at this time she does not feel comfortable leaving the hospital yet, she feels that she is still in pain and not tolerating food well, she feels like she would likely have to come back to hospital soon Nausea, vomiting, diarrhea -Patient is already using antiemetics, also recommended to have very light diet, patient can have tea, coffee, water, juices she should avoid dairy products. She can have bananas, rice, avocado, cooked carrots, baked chicken. She should avoid fried foods, sauces, gravy, dairy products while she's having diarrhea. (3) Hypertensive urgency: -Presenting BP 217/100 -Patient denies prior history of hypertension -started Norvasc 5 mg on admission -BP possibly elevated due to pain, now well controlled (4) COPD exacerbation: -Patient had diffuse wheezing on exam on admission and several days after, now resolved, was on 2L/min, now breathing comfortably on room air -Solu-Medrol 40 mg IV every 8 hours (avoiding p.o. steroids due to concern of possible PUD), stopped IV solumedrol - Empiric doxycycline, nebs - stopped doxy bid (pt will cont. to take once daily dose for H.pylori only) - if cont. to use suppl. O2, will need 2 step study/ ambulatory pulse ox study before discharge - once she is not having nausea/vomiting, she should re-start using her bipap at night (5) DVT prophylaxis: -SCDs for now due to concerns for possible PUD (6) Discharge planning issues: -Patient reports she is currently residing in a long-term in [place] -Has health insurance however reports she does not have drug coverage -Her PCP is in [place], patient visiting in [place] to sign divorce papers, discussed that she may need to follow-up with PCP here before she leaves for [place] again, she is agreeable -Case management consulted, currently her appointment is for May 19 at 11:05 in [place] (Dr. Carrasco) (7) Anemia: Current hemoglobin above 11 (stable) but down from 13.3 (05/09) -Normocytic -Likely dilutional, but possibly from a GI bleed, EGD on (04/09) positive for gastritis and H. pylori Subjective No acute events overnight. Status post EGD, biopsy positive for H. pylori and started on treatment. She continues to have abdominal pain, nausea, vomiting, and diarrhea, but seems to be improving. Denies any fevers, chills, chest pain or shortness of breath, headache, dizziness/lightheadedness. Discussed in detail her diet. Recommend brat diet, bananas, rice, cooked carrots, toast.. She can have chicken broth, or baked chicken. She should avoid any fried or heavy greasy foods, gravy, sauces and dairy products. She should also eat very slowly, drinking small sips. Review of Systems Review of Systems: All systems reviewed & are unremarkable except as noted in HPI & below ROS per HPI, all other systems reviewed and negative Constitutional: no fever, no chills and no fatigue Respiratory: no cough, no dyspnea and no pain on inspiration Cardiovascular: no chest pain, no radiating jaw, neck or arm pain and no dyspnea on exertion Gastrointestinal: + abdominal pain, + nausea, + vomiting and + diarrhea/loose stools Physical Exam Constitutional: well developed and well nourished; no acute distress Eyes: PERRL, conjunctivae normal, anicteric sclerae EOM intact bilaterally ENMT: external ear and nose normal, oropharynx normal Neck: normal visual inspection Respiratory: normal respiratory effort; no respiratory distress, no labored breathing and no retractions Auscultation: no crackles, no rhonchi and no wheezes Cardiovascular: RRR, no murmur, no edema Heart Sounds: no gallop Chest (Breasts): Chest: normal inspection of chest Gastrointestinal (Abdomen): Inspection/Auscultation: abdomen normal to inspection and normal bowel sounds; abdomen not distended Percussion/Palpation: + abdomen tender (Mildly tender to palpation in the epigastric area) and abdomen soft; no guarding and abdomen not rigid Musculoskeletal: Head/Neck/Chest: normocephalic, head atraumatic and neck supple Extremities: extremities normal to inspection Skin: no rashes, warm and dry Neurologic: PERRL, EOMI, accommodation nl, no face palsy, no dysarthria moves all extremities Speech / Cognition: normal speech Psychiatric: A+Ox3, euthymic affect Speech: normal rate/rhythm/volume of speech Lymphatic: no lymphedema Results & Data Vital Signs (Past 12 Hours) Vital Signs Temp Pulse Resp BP Pulse Ox 05/16/19 07:15 36.7 C 71 16 111/69 92 05/15/19 23:10 36.8 C 80 18 128/79 94 Medications Administered Current Inpatient Medications Acetaminophen (Tylenol) 650 mg PO Q4HWA [facility] Stop: 06/10/19 19:59 Last Admin: 05/16/19 08:59 Dose: 650 mg Documented by: Albuterol (Duoneb) 3 ml NEB TIDR [facility] Stop: 06/13/19 18:59 Last Admin: 05/16/19 08:01 Dose: Not Given Documented by: Amlodipine Besylate (Norvasc) 5 mg PO DAILY [facility] Stop: 06/08/19 15:09 Last Admin: 05/16/19 08:56 Dose: 5 mg Documented by: Bismuth Subsalicylate (Pepto-Bismol) 1 tab PO 1000,1500,1700,2200 [facility] Stop: 06/10/19 21:59 Last Admin: 05/16/19 10:09 Dose: 1 tab Documented by: Dicyclomine HCl (Bentyl) 10 mg PO TID PRN PRN Reason: abdominal pain Stop: 06/08/19 15:09 Last Admin: 05/16/19 08:56 Dose: 10 mg Documented by: Doxycycline Hyclate (Vibramycin) 100 mg PO QAM [facility]; Protocol Stop: 05/19/19 08:59 Last Admin: 05/16/19 08:59 Dose: 100 mg Documented by: Hydromorphone HCl (Dilaudid) 0.25 mg IV Q4H PRN PRN Reason: Pain Stop: 05/23/19 20:52 Last Admin: 05/16/19 10:11 Dose: 0.25 mg Documented by: Promethazine HCl 12.5 mg/ (Sodium Chloride) 50.5 mls @ 202 mls/hr IV Q6H PRN PRN Reason: Nausea And Vomiting Stop: 06/08/19 18:49 Last Infusion: 05/16/19 09:10 Dose: Infused Documented by: Labetalol HCl (Normodyne) 10 mg IV Q8H PRN PRN Reason: HTN Stop: 06/08/19 15:09 Last Admin: 05/09/19 17:05 Dose: 10 mg Documented by: Metronidazole (Flagyl) 500 mg PO TID [facility] Stop: 05/21/19 20:59 Last Admin: 05/16/19 08:56 Dose: 500 mg Documented by: Ondansetron HCl (Zofran) 4 mg IV Q6H PRN PRN Reason: nausea Stop: 06/08/19 15:09 Last Admin: 05/16/19 05:03 Dose: 4 mg Documented by: Pantoprazole Sodium (Protonix) 40 mg PO BID [facility]; Protocol Stop: 06/13/19 20:59 Last Admin: 05/16/19 08:51 Dose: 40 mg Documented by: Fluticasone/Salmeterol (Advair Diskus 250/50) 1 puffs INH BID [facility] Stop: 06/08/19 20:59 Last Admin: 05/16/19 09:00 Dose: 1 puffs Documented by: Tramadol HCl (Ultram) 50 mg PO Q4H PRN PRN Reason: Pain Stop: 06/08/19 17:35 Last Admin: 05/16/19 08:55 Dose: 50 mg Documented by:
[2019-05-17] MEDS: HYDROmorphone INJ 0.5 MG/0.5 ML SYR IV PRN ×6 (00:52→22:04)
[2019-05-17] MEDS: TRAMADOL HCL 50 MG TABLET PO PRN ×2 (09:11→15:35)
[2019-05-17] MEDS: FLUTICASONE/SALMETEROL 250/50 (ADVAIR) 14 PUFF/1 INHALER INH SCH ×2 (09:11→20:25)
[2019-05-17] MEDS: AMLODIPINE BESYLATE 5 MG TAB PO SCH (09:12)
[2019-05-17] MEDS: metroNIDAZOLE 500 MG TAB PO SCH ×3 (09:12→20:26)
[2019-05-17] MEDS: PANTOprazole 40 MG TAB PO SCH ×2 (09:12→20:26)
[2019-05-17] MEDS: DOXYCYCLINE HYCLATE 100 MG CAP PO SCH (09:12)
[2019-05-17] MEDS: ACETAMINOPHEN 325 MG TAB PO SCH ×4 (09:12→19:18)
[2019-05-17] MEDS: BISMUTH SUBSALICYLATE 262 MG CHEW PO SCH ×4 (09:13→22:04)
[2019-05-17] MEDS: PROMETHAZINE HCL 12.5 MG in SODIUM CHLORIDE 0.9% 50 ML IV PRN ×2 (10:02→18:41)
--- NOTE | 2019-05-17 13:08 | Hospitalist Progress Note ---
Date of Service May 17, 2019 Assessment & Plan (1) Nausea vomiting and diarrhea: (2) Abdominal pain: Secondary to gastritis, H. pylori infection -Patient presented with various abdominal complaints: Nausea, vomiting, diarrhea with intermittent episodes of hematemesis, coffee-ground emesis, bright red bleeding per rectum, black stools -Has had several ED evaluations at [facility], [facility], and [facility] for the same complaints over the past 2 months -Several CT ABD/pelvis have been completed without acute findings; will hold on repeating for now -Per patient, she was treated for H. pylori and C. difficile in January 2019 at [facility] -On admission labs unremarkable; no leukocytosis, H&H stable, LFTs WNL, lipase WNL -History of duodenal ulcer 2012 -S/P EGD (05/10)- EGD significant for gastritis and H. pylori confirmed on biopsy -discussed with pharmacy appropriate treatment, given her multiple antibiotic allergies, patient is already on doxy, and PPI which we can continue, added metronidazole and Bismuth (started on 05/11 evening, will need 14 day treatment course) -Currently on ppi po bid -Stool cultures - negative, C. difficile toxin - negative. C diff tox B gene positive -PRN Bentyl, Tylenol, Tramadol for abdominal pain; will try to avoid narcotics as much as possible -Still complaining of abdominal pain and nausea, difficulty keeping anything down, despite antiemetics -Will continue to monitor po tolerance. Still unable to keep much food down. Will continue narcotic for pain control for now. Discussed with her about side effects -Discussed with her discharge and follow-up, she is currently scheduled to follow-up in [place] with Dr. Carrasco on May 19 (Wednesday) at 11:05 am. -She is not established here, her PCP is in [place], however she discussed with Dr Moya about follow-up in this area before she goes to [place] again, (3) Hypertensive urgency: -Presenting BP 217/100 -Patient denies prior history of hypertension -started Norvasc 5 mg on admission -BP well controlled. Will continue to monitor (4) COPD exacerbation: -Patient had diffuse wheezing on exam on admission and several days after, now resolved, was on 2L/min, now breathing comfortably on room air -Solu-Medrol 40 mg IV every 8 hours (avoiding p.o. steroids due to concern of possible PUD), stopped IV solumedrol -Was on doxy bid. Now on daily as part of H. pylori treatement due to allergy to amoxicillin and erythromycin -Continue home inhalers (5) DVT prophylaxis: -SCDs for now (6) Discharge planning issues: -Patient reports she is currently residing in a snf in [place] -Has health insurance however reports she does not have drug coverage -Her PCP is in [place], patient visiting in [place] to sign divorce papers, discussed that she may need to follow-up with PCP here before she leaves for [place] again, she is agreeable -Currently her appointment is for May 19 at 11:05 in [place] (Dr. Carrasco). May need rescheduling if not discharged before than (7) Anemia: Hemoglobin stable at 11s (stable) but down from 13.3 (05/09) Normocytic Likely dilutional +/- possibly from a GI bleed, EGD on positive for gastritis and H. pylori Subjective Patient still reports epigastric pain especially after eating. Associated with nausea and occasional vomiting. Denied any fevers. Reports diarrhea is resolving Reported one episode of brownish vomitus this AM about 20cc Denied any fevers, chills Review of Systems Constitutional: no fever, no chills and no fatigue Respiratory: no cough, no chest congestion, no dyspnea and no dyspnea on exertion Cardiovascular: no chest pain, no dyspnea, no dyspnea on exertion and no orthopnea Gastrointestinal: + abdominal pain, + nausea, + vomiting and + diarrhea/loose stools Physical Exam Physical Exam: General: Well nourished, well hydrated, average body habitus, no acute distress and not ill appearing Eyes: PERRL, conjunctivae normal, not pale, anicteric sclerae, EOM intact bilaterally ENMT: External ear and nose normal, oropharynx normal Neck: Normal visual inspection, no tracheal deviation, no swelling noted Respiratory: Normal respiratory effort, no respiratory distress, lungs clear to auscultation, no crackles and no wheezes Cardiovascular: Pulse is RRR. S1 S2 no pedal edema Chest (Breasts): Chest: normal inspection of chest Gastrointestinal (Abdomen): Abdomen is not distended, soft, Epigastric tenderness, no guarding, no palpable hepatosplenomegaly, normal bowel sounds Musculoskeletal: No cyanosis or clubbing, all extremities motor strength 5/5 Skin: No rash noted on gross inspection, No ulcers noted Neurologic: Alert and oriented x 3, No focal weakness, sensation grossly intact Psychiatric: Alert and oriented x 3, euthymic affect, no depressed affect Results & Data Vital Signs (Past 12 Hours) Vital Signs Temp Pulse Resp BP Pulse Ox 05/17/19 07:48 36.9 C 68 16 113/72 93
[2019-05-18] MEDS: HYDROmorphone INJ 0.5 MG/0.5 ML SYR IV PRN ×4 (03:01→21:01)
[2019-05-18] MEDS: TRAMADOL HCL 50 MG TABLET PO PRN ×3 (06:04→17:29)
[2019-05-18 06:15] LABS: Hematocrit (blood only) 40.5 % (37-47); Hemoglobin 12.8 g/dL (12.0-16.0); Mean Corpuscular Hemoglobin 29.1 pg (25-34); Mean Corpuscular Hgb Conc 31.6 g/dL (32-36); Mean Platelet Volume 9.8 fL (7.4-10.4); Platelet Count 199 K/uL (130-400); RDW Standard Deviation 51.1 fL (36.4-46.3); White Blood Count 5.73 K/uL (4.8-10.8)
[2019-05-18 06:50] LABS: BUN Creatinine Ratio 16.1 (10-20); Calcium 9.1 mg/dl (8.5-10.1); Creatinine Clr Calc Pharmacy 61.5 ml/min; Est GFR (African American) 88.8; Est GFR (Non-African American) 76.6; Potassium 4.3 mmol/L (3.5-5.1)
[2019-05-18] MEDS: ACETAMINOPHEN 325 MG TAB PO SCH ×4 (08:38→20:34)
[2019-05-18] MEDS: PANTOprazole 40 MG TAB PO SCH ×2 (08:38→21:03)
[2019-05-18] MEDS: AMLODIPINE BESYLATE 5 MG TAB PO SCH (08:38)
[2019-05-18] MEDS: FLUTICASONE/SALMETEROL 250/50 (ADVAIR) 14 PUFF/1 INHALER INH SCH ×2 (08:38→21:02)
[2019-05-18] MEDS: DOXYCYCLINE HYCLATE 100 MG CAP PO SCH (08:38)
[2019-05-18] MEDS: metroNIDAZOLE 500 MG TAB PO SCH ×3 (08:38→21:02)
[2019-05-18] MEDS: BISMUTH SUBSALICYLATE 262 MG CHEW PO SCH ×4 (10:54→21:03)
[2019-05-18] MEDS: ONDANSETRON INJ 2 MG/ML 2 ML VIAL IV PRN (12:06)
--- NOTE | 2019-05-18 17:38 | Hospitalist Progress Note ---
Date of Service May 18, 2019 Assessment & Plan (1) Nausea vomiting and diarrhea: (2) Abdominal pain: Secondary to gastritis, H. pylori infection -Patient presented with various abdominal complaints: Nausea, vomiting, diarrhea with intermittent episodes of hematemesis, coffee-ground emesis, bright red bleeding per rectum, black stools -Has had several ED evaluations at [facility], [facility], and [facility] for the same complaints over the past 2 months -Several CT ABD/pelvis have been completed without acute findings; will hold on repeating for now -Per patient, she was treated for H. pylori and C. difficile in January 2019 at [facility] -On admission labs unremarkable; no leukocytosis, H&H stable, LFTs WNL, lipase WNL -History of duodenal ulcer 2012 -S/P EGD (05/10)- EGD significant for gastritis and H. pylori confirmed on biopsy -discussed with pharmacy appropriate treatment, given her multiple antibiotic allergies, patient is already on doxy, and PPI which we can continue, added metronidazole and Bismuth (started on 05/11 evening, will need 14 day treatment course) -Currently on ppi po bid -Stool cultures - negative, C. difficile toxin - negative. C diff tox B gene positive -PRN Bentyl, Tylenol, Tramadol for abdominal pain; will try to avoid narcotics as much as possible -Still complaining of abdominal pain and nausea -Reports mild improvement in symptoms. Will continue antiemetics to optimize nausea control -Reduce frequency of iv dilaudid to q6h prn -If better tolerating po intake tomorrow will discharge home -Will follow-up in [place] with Dr. Carrasco on discharge. -She is not established here, her PCP is in [place], however she discussed with Dr Moya about follow-up in this area before she goes to [place] again, (3) Hypertensive urgency: -Presenting BP 217/100 -Patient denies prior history of hypertension -started Norvasc 5 mg on admission -BP well controlled. Will continue to monitor (4) COPD exacerbation: -Patient had diffuse wheezing on exam on admission and several days after, now resolved, was on 2L/min, now breathing comfortably on room air -Solu-Medrol 40 mg IV every 8 hours (avoiding p.o. steroids due to concern of possible PUD), stopped IV solumedrol -Was on doxy bid. Now on daily as part of H. pylori treatement due to allergy to amoxicillin and erythromycin -Continue home inhalers (5) DVT prophylaxis: -SCDs for now (6) Discharge planning issues: -Patient reports she is currently residing in a usp in [place] -Has health insurance however reports she does not have drug coverage.If discharged tomorrow, will try bedside drug delivery -Her PCP is in [place], patient visiting in [place] to sign divorce papers, discussed that she may need to follow-up with PCP here before she leaves for [place] again, she is agreeable -Currently her appointment is for May 19 at 11:05 in [place] (Dr. Carrasco). Will need rescheduling if discharged tomorrow (7) Anemia: Hemoglobin stable at 12 today Normocytic Subjective Patient seen and evaluated. Continued to have nausea. Reported postprandial vomiting yesterday but not this morning. Reports abdominal pain is improving slightly. Reports bowel movement is getting more wellformed and light brownish Tolerated breakfast with some nausea. Review of Systems Review of Systems: All systems reviewed and unremarkable except for mentioned above. Physical Exam Physical Exam: General: Well nourished, well hydrated, average body habitus, no acute distress and not ill appearing Eyes: PERRL, conjunctivae normal, EOM intact bilaterally ENMT: External ear and nose normal, oropharynx normal Neck: Normal visual inspection, no tracheal deviation, no swelling noted Respiratory: Normal respiratory effort, no respiratory distress, lungs clear to auscultation, no crackles and no wheezes Cardiovascular: Pulse is RRR. S1 S2 no pedal edema Gastrointestinal (Abdomen): Abdomen is not distended, soft, Epigastric tenderness, no guarding, no palpable hepatosplenomegaly, normal bowel sounds Musculoskeletal: No cyanosis or clubbing Skin: No rash noted on gross inspection, No ulcers noted Neurologic: Alert and oriented x 3, No focal weakness, sensation grossly intact Psychiatric: Alert and oriented x 3, euthymic affect, no depressed affect Results & Data Vital Signs (Past 12 Hours) Vital Signs Temp Pulse Resp BP Pulse Ox 05/18/19 14:54 36.8 C 83 16 110/65 93 05/18/19 07:00 36.7 C 71 18 121/72 93 Laboratory Results Laboratory Results - last 24 hr 05/18/19 05/18/19 05:45 05:45 WBC 5.73 RBC 4.40 Hgb 12.8 Hct 40.5 MCV 92.0 MCH 29.1 MCHC 31.6 L RDW Std Deviation 51.1 H RDW Coeff of [place] 15.0 H Plt Count 199 MPV 9.8 Sodium 140 Potassium 4.3 Chloride 106 Carbon Dioxide 30 Anion Gap 4.0 BUN 14 Creatinine 0.85 Est Cr Clr Drug Dosing 61.5 Est GFR ( Amer) 88.8 Est GFR (Non-Af Amer) 76.6 BUN/Creatinine Ratio 16.1 Glucose 97 Calcium 9.1
[2019-05-19] MEDS: TRAMADOL HCL 50 MG TABLET PO PRN ×2 (00:03→10:38)
[2019-05-19] MEDS: HYDROmorphone INJ 0.5 MG/0.5 ML SYR IV PRN ×2 (03:13→08:58)
[2019-05-19 05:53] LABS: Hematocrit (blood only) 39.3 % (37-47); Hemoglobin 12.7 g/dL (12.0-16.0); Mean Corpuscular Hemoglobin 29.5 pg (25-34); Mean Corpuscular Hgb Conc 32.3 g/dL (32-36); Mean Corpuscular Volume 91.2 fL (80-100); Mean Platelet Volume 9.8 fL (7.4-10.4); Platelet Count 195 K/uL (130-400); RDW Coefficient of Variation 14.7 % (11.5-14.5); RDW Standard Deviation 49.6 fL (36.4-46.3); Red Blood Count 4.31 M/uL (4.2-5.4); White Blood Count 5.24 K/uL (4.8-10.8)
[2019-05-19 06:24] LABS: BUN Creatinine Ratio 14.5 (10-20); Creatinine Clr Calc Pharmacy 66.2 ml/min; Est GFR (Non-African American) 83.7; Potassium 4.1 mmol/L (3.5-5.1)
[2019-05-19] MEDS: ONDANSETRON INJ 2 MG/ML 2 ML VIAL IV PRN (08:58)
[2019-05-19] MEDS: ACETAMINOPHEN 325 MG TAB PO SCH ×2 (10:38→13:06)
[2019-05-19] MEDS: FLUTICASONE/SALMETEROL 250/50 (ADVAIR) 14 PUFF/1 INHALER INH SCH (10:38)
[2019-05-19] MEDS: AMLODIPINE BESYLATE 5 MG TAB PO SCH (10:39)
[2019-05-19] MEDS: PANTOprazole 40 MG TAB PO SCH (10:39)
[2019-05-19] MEDS: metroNIDAZOLE 500 MG TAB PO SCH (10:39)
[2019-05-19] MEDS: BISMUTH SUBSALICYLATE 262 MG CHEW PO SCH (11:45)
--- NOTE | 2019-05-19 17:44 | Discharge Summary ---
Date of Service May 19, 2019 Admission HPI Per Admitting Provider 58-year-old female who presents the ED for evaluation of abdominal pain, nausea, vomiting, diarrhea. After review of records, it appears as though patient has had several ED visits at [facility], [facility], and [facility] for evaluation of these problems over the past few months. Patient reports she has had persistent generalized abdominal pain which seems to be worse in the epigastric area. She reports several episodes of vomiting. She also has had intermittent diarrhea. Patient reports that she has noticed bright red blood in her emesis as well as yfhmwp-[id number] material today. Also notes bright bleeding per rectum as well as black stools. She has had very poor oral intake as food and liquids seem to make her symptoms worse. She reports she has had episodes of hot flashes and chills however did not take her temperature. She reports the pain is so severe at times it causes her to double over and fall to the ground. She reports she also feels lightheaded and dizzy during these episodes but denies any syncopal event. No chest pain or shortness of breath. She reports a worsening cough productive for yellow sputum. Denies any urinary symptoms. In the ED, patient was found to be hypertensive with BP 217/100, otherwise hemodynamically stable. Labs are unremarkable. Abdominal imaging was deferred due to the amount of CTs patient has had over the past few weeks. She was given IV Tylenol, IV Benadryl, IV famotidine, IV prochlorperazine, and IVF. Admission Exam Per Admitting Provider Constitutional: WD/WN, vitals as above Eyes: PERRL, conjunctivae normal, anicteric sclerae ENMT: external ear and nose normal, oropharynx normal Respiratory: normal respiratory effort; no respiratory distress Auscultation: + wheezes (diffuse, inspiratory and expiratory) Cardiovascular: Rate/Rhythm: + tachycardic (mild, HR 90s-low 100s) Gastrointestinal (Abdomen): Inspection/Auscultation: normal bowel sounds Percussion/Palpation: + abdomen tender (diffuse, more pronounced in epigastric area ) and abdomen soft; no hepatosplenomegaly Musculoskeletal: no cyanosis or clubbing, extremities motor strength 5/5 Skin: no rashes, warm and dry Neurologic: PERRL, EOMI, accommodation nl, no face palsy, no dysarthria Psychiatric: A+Ox3, euthymic affect Principal Diagnosis Gastritis H. pylori infection Hypertension COPD exacerbation Discharge Exam General: No acute distress Eyes: PERRL, conjunctivae normal, EOM intact bilaterally ENMT: External ear and nose normal, oropharynx normal Neck: Normal visual inspection, no tracheal deviation, no swelling noted Respiratory: Normal respiratory effort, no respiratory distress, lungs clear to auscultation, no crackles and no wheezes Cardiovascular: Pulse is RRR. S1 S2 no pedal edema Gastrointestinal (Abdomen): Abdomen is not distended, soft, mild epigastric tenderness, no guarding, no palpable hepatosplenomegaly, normal bowel sounds Musculoskeletal: No cyanosis or clubbing Skin: No rash noted on gross inspection, No ulcers noted Neurologic: Alert and oriented x 3, No focal weakness, sensation grossly intact Psychiatric: Alert and oriented x 3, euthymic affect, no depressed affect Discharge Data Allergies Allergy/AdvReac Type Severity Reaction Status Date / Time amoxicillin Allergy Severe swell up Verified 05/09/19 10:17 cant breathe erythromycin base Allergy Severe swell up Verified 05/09/19 10:17 cant breathe ibuprofen Allergy Severe swell up Verified 05/09/19 10:17 cant breathe ketorolac Allergy Severe swell up Verified 05/09/19 10:17 cant breathe moxifloxacin Allergy Severe Anaphylaxis Verified 05/09/19 10:17 naproxen Allergy Severe swell up Verified 05/09/19 10:17 cant breathe oxytetracycline Allergy Severe SWELLS UP Verified 05/09/19 10:17 AND CANT BREATH Penicillins Allergy Severe swell up Verified 05/09/19 10:17 cant breathe Consultations 05/09/19 11:21 ED Decision to Admit Stat 05/09/19 15:10 Consult Case Management - Discharge Planning Routine Consult Gastroenterology Routine Consult Health Information Management Stat Procedures Performed Operation Date: 05/10/19 16:00 Actual Procedures p EGD Biopsy Cytology - Tali Peralta Findings The esophagus was normal. Minimal inflammation characterized by congestion (edema) and erythema was found in the entire examined stomach. Biopsies were taken with a cold forceps for Helicobacter pylori testing. Verification of patient identification for the specimen was done by the physician and nurse using the patient's name and date. Estimated blood loss was minimal. The examined duodenum was normal. Impression: - Normal esophagus. - Mild gastritis. Biopsied. - Normal examined duodenum. Hospital Course (1) H. pylori infection: (2) Gastritis: (3) Nausea vomiting and diarrhea: (4) Abdominal pain: Secondary to gastritis, H. pylori infection -Patient presented with various abdominal complaints: Nausea, vomiting, diarrhea with intermittent episodes of hematemesis, coffee-ground emesis, bright red bleeding per rectum, black stools -Has had several ED evaluations at [facility], [facility], and [facility] for the same complaints over the past 2 months -Several CT ABD/pelvis have been completed without acute findings -Per patient, she was treated for H. pylori and C. difficile in January 2019 at [facility] -On admission labs unremarkable; no leukocytosis, H&H stable, LFTs WNL, lipase WNL -History of duodenal ulcer 2012 -S/P EGD (05/10)- EGD significant for gastritis and H. pylori confirmed on biopsy -Given her multiple antibiotic allergies, patient is being treated with doxy, PPI , metronidazole and Bismuth (started on 05/11 evening, will need 14 day treatment course) until 05/25/19 -Stool cultures - negative, C. difficile toxin negative. C diff tox B gene positive -Abdominal pain was controlled with opioid inpatient and antinausea medications -Today, still complaining of abdominal pain and nausea. Wants to be discharged today -Now tolerating diet -Discharged on tramadol prn. Reviewed PDMP. Counselled patient on opioid side effects including overdose and addiction -Stated she will call Dr. Carrasco for rescheduling follow up appt as she was supposed to follow up today if she had been discharged yesterday -She is not established here, her PCP is in [place] (5) Hypertensive urgency: -Presenting BP 217/100 -Patient denies prior history of hypertension -started Norvasc 5 mg on admission. Discharged on this. -BP well controlled. Will continue to monitor (6) COPD exacerbation: -Patient had diffuse wheezing on exam on admission and several days after, now resolved, was on 2L/min, now breathing comfortably on room air -Solu-Medrol 40 mg IV every 8 hours (avoiding p.o. steroids due to concern of possible PUD), stopped IV solumedrol -Was on doxy bid. N -Completed therapy. -Continue home inhalers (7) Anemia: Hemoglobin stable at 12 today Normocytic Total Time Total Time Spent Total Time Spent (In Minutes): 35 Total Time Includes: Examination of the Patient, Discharge Planning and Medication Reconciliation Discharge Plan Discharge Items Patient Disposition: Home - Self-Care Reason For Visit: ABD PAIN Discharge Diagnosis: Helicobacter pylori infection Gastritis COPD exacerbation Hypertension Condition on Discharge: Fair Activity: Resume your previous activity Non-emergency contact: Primary Care Provider Call non-emergency contact if: you have any medication questions and your symptoms worsen Follow-up/Referrals: PCP,NO [Primary Care Provider] - Diet Texture: Dental soft (bite-sized) Addtl Attending Provider Instructions: Ms Estrada. You came to the hospital complaining of nausea, vomiting, diarrhea. You were evaluated extensively. You had a procedure called EGD (esophagogas troduodenoscopy) which showed you have some inflammation in your stomach (gastritis) and H. pylori infection. You are currently being treated for H. pylori infection. Please continue to take all the antibiotics for this till 05/25/19. You were found to have positive C. diff gene but negative toxin. Your diarrhea resolved. You still have the nausea but much improved. You were also found to have exacerbation of your COPD and this was treated and completely resolved. YOu were found to have hypertension and started on amlodipine 5mg daily. Please continue taking these until you see a Primary Doctor. It was a pleasure taking care of you Pending Studies at Discharge: No Stand-Alone Forms: My [facility], Smoking Cessation Medications and DC Order Prescriptions: New metronidazole 500 mg Tablet 500 mg PO TID 7 Days Qty: 21 RF: 0 acetaminophen [Mapap (acetaminophen)] 325 mg Tablet 650 mg PO Q4HWA PRN (Reason: Abdominal Pain) Qty: 50 RF: 0 amlodipine [Norvasc] 5 mg Tablet 5 mg PO DAILY Qty: 30 RF: 1 tramadol 50 mg Tablet 50 mg PO Q6H PRN (Reason: severe pain) 7 Days Qty: 28 RF: 0 bismuth subsalicylate [Stomach Relief] 262 mg Tablet,Chewable 1 tab PO 1000,1500,1700,2200 7 Days Qty: 28 RF: 0 pantoprazole 40 mg Tablet,Delayed Release (Dr/Ec) 40 mg PO BID 7 Days Qty: 14 RF: 0 ondansetron HCl [Zofran] 4 mg tablet 4 mg PO Q8H PRN (Reason: nausea) 5 Days Qty: 15 RF: 0 Continued fluticasone propion-salmeterol [Advair Diskus] 250-50 mcg/dose Blister With Device 1 inh INHALATION BID RF: 0 albuterol sulfate 90 mcg/actuation Hfa Aerosol Inhaler 2 puff INHALATION Q6H PRN (Reason: Shortness Of Breath) RF: 0 Discharge Orders: Discharge Order (Routine); Ordered 05/19/19 Ordered By: Valentina Charles/Other Patient Handouts: Diet Soft Dc Admission Data Admit Date/Time: 05/09/19 12:28 Attending Provider: Valentina Dean I. Admit Provider: Jaciel Olivares Primary Care Provider: PCP,NO Other Providers: Jaciel Olivares ; Tali Peralta ; Mo Moya Other Interventions: Discharge Summary Assessment (RN) Last Done: 05/19/19 11:13 DC Date/Time DO NOT enter until pt leaves facility: 05/19/19 13:45
== END 2019-05-19 13:45 | disposition home or self-care (01) | DRG 372 ==
LOC: ED 09:21 → 2S 12:28 → SUATTDRO 12:28 → 2S 14:28 → 4W 05-10 19:08
DX: K29.70 Gastritis, unspecified, without bleeding; I10 Essential (primary) hypertension; I16.0 Hypertensive urgency; R55 Syncope and collapse; Z88.0 Allergy status to penicillin; D64.9 Anemia, unspecified; J44.1 Chronic obstructive pulmonary disease with (acute) exacerbation; Z88.1 Allergy status to other antibiotic agents; A04.8 Other specified bacterial intestinal infections; F17.210 Nicotine dependence, cigarettes, uncomplicated

== ENCOUNTER 2019-07-17 08:38 | Inpatient (IN) ==
[2019-07-17] MEDS ORDERED: ONDANSETRON INJ 2 MG/ML 2 ML VIAL IV STA (08:58)
[2019-07-17] MEDS ORDERED: SODIUM CHLORIDE 0.9% 1000ML 1,000 ML IV STA (08:58)
[2019-07-17] MEDS ORDERED: HYDROmorphone INJ 0.5 MG/0.5 ML SYR IV STA (08:58)
[2019-07-17] MEDS ORDERED: ALBUT/IPRATROP 3MG/0.5MG NEB 3 ML VIAL NEB STA ×2 (09:03→11:09)
--- NOTE | 2019-07-17 09:36 | XRay Report ---
XR chest 1V portable CLINICAL HISTORY: Atypical chest pain COMPARISON STUDY: 07/15/2019 FINDINGS: The heart is normal in size. There is no failure. There is slight interstitial thickening a t the lung bases. There are no pleural effusions. There is no lobar consolidation.[ IMPRESSION: Mild basilar interstitial thickening. No evidence of lobar consolidation. ACT 112: Negative or not required by law. Electronically signed by: Sly Montana M.D. 07/17/2019 9:35 AM
[2019-07-17 09:43] LABS: Basophils # (auto) 0.04 K/uL (0-0.2); Basophils % (auto) 0.7 %; Eosinophils # (auto) 0.09 K/uL (0-0.5); Eosinophils % (auto) 1.5 %; Hematocrit (blood only) 35.6 % (37-47); Hemoglobin 11.5 g/dL (12.0-16.0); Immature Granulocytes # (auto) 0.06 K/uL (0.00-0.02); Lymphocytes # (auto) 0.94 K/uL (1.2-3.4); Lymphocytes % (auto) 15.4 %; Mean Corpuscular Hemoglobin 29.3 pg (25-34); Mean Corpuscular Hgb Conc 32.3 g/dL (32-36); Mean Corpuscular Volume 90.6 fL (80-100); Mean Platelet Volume 9.1 fL (7.4-10.4); Monocytes # (auto) 0.59 K/uL (0.11-0.59); Monocytes % (auto) 9.7 %; Neutrophils # (auto) 4.37 K/uL (1.4-6.5); Neutrophils % (auto) 71.7 %; Platelet Count 398 K/uL (130-400); RDW Coefficient of Variation 15.6 % (11.5-14.5); RDW Standard Deviation 52.2 fL (36.4-46.3); Red Blood Count 3.93 M/uL (4.2-5.4); White Blood Count 6.09 K/uL (4.8-10.8)
[2019-07-17 09:59] LABS: Alanine Aminotransferase 17 U/L (12-78); Albumin Level 3.5 gm/dl (3.4-5.0); Aspartate Aminotransferase 16 U/L (15-37); BUN Creatinine Ratio 2.1 (10-20); Blood Urea Nitrogen 2 mg/dl (7-18); Calcium 9.1 mg/dl (8.5-10.1); Carbon Dioxide 25 mmol/L (21-32); Chloride 101 mmol/L (98-107); Creatinine Clr Calc Pharmacy 67.6 ml/min; Est GFR (Non-African American) 86.3; Glucose 129 mg/dl (70-99); Lipase 90 U/L (73-393); Potassium 3.7 mmol/L (3.5-5.1); Sodium 135 mmol/L (136-145)
[2019-07-17 10:03] LABS: Albumin Globulin Ratio 0.9 (0.9-2); Alkaline Phosphatase 113 U/L (45-117); Bilirubin,Total 0.2 mg/dl (0.2-1); Total Protein 7.5 gm/dl (6.4-8.2); Troponin I < 0.015 ng/ml (0-0.045)
[2019-07-17 10:15] LABS: Pregnancy Test, Serum Negative (Negative)
[2019-07-17] MEDS ORDERED: IOVERSOL 100ml IV PRN (10:18)
[2019-07-17] MEDS: HYDROmorphone INJ 0.5 MG/0.5 ML SYR IV PRN ×2 (10:31→11:54)
--- NOTE | 2019-07-17 10:31 | CT Scan Report ---
CT abd pelvis IV con only CLINICAL HISTORY: vomiting, abd pain COMPARISON STUDY: June 23, 2019 TECHNIQUE: The patient was scanned in a dynamic helical fashion during intravenous administration of 94 cc of Optiray 320. A dose lowering technique was utilized adhering to the principles of ALARA. CT DOSE: 254.72 mGy.cm FINDINGS: Lower chest: There is minor lower lobe bronchial wall thickening. There are minor basilar atelectatic changes. Liver: The contrast-enhanced liver is normal in size, contour, and attenuation. There is no intrahepa tic biliary ductal dilatation. The hepatic veins and portal veins are patent. Gallbladder: Surgically absent Spleen: Normal in size and attenuation. Pancreas: Unremarkable. Adrenal glands: Unremarkable. Kidneys: There is symmetric renal cortical enhancement. The kidneys are normal in size without hydron ephrosis. Bowel: There are no transition zones to indicate bowel obstruction. By history the appendix is surgic ally absent. There is no evidence of acute diverticulitis. Peritoneum: There is no intraperitoneal free air or abdominal ascites. Vasculature: The abdominal aorta is normal in course and caliber. Adenopathy: None. Pelvic viscera: There is minor bladder wall thickening. No pathologic adnexal masses are visualized. Skeletal structures: No destructive osseous lesions are seen. IMPRESSION: 1. No evidence of bowel obstruction. No evidence of free air 2. Surgically absent appendix. No evidence of acute diverticulitis 3. Minor bladder wall thickening 4. No evidence of pathologic adenopathy 5. Surgically absent gallbladder ACT 112: Negative or not required by law. Electronically signed by: Sly Montana M.D. 07/17/2019 10:30 AM
[2019-07-17] MEDS ORDERED: methylPREDNISolone 125 MG/2 ML VIAL IV STA (11:09)
--- NOTE | 2019-07-17 12:23 | History & Physical Report ---
Date of Service July 17, 2019 Assessment & Plan (1) Nausea vomiting and diarrhea: -Admit to [facility] -Patient presenting from home with reports of persistent abdominal pain, nausea, vomiting, diarrhea -As noted in HPI, patient has had several hospital admissions and ED visits for these complaints -Today, patient reporting coffee-ground emesis and bright red bleeding per rectum; Hgb stable at 11.5, CT ABD/pelvis negative for acute findings -IV PPI twice daily -PRN antiemetics, cautious use of narcotics due to concerns for drug-seeking behavior -Clear liquid diet, n.p.o. after midnight for EGD -GI consult, case discussed with VALENTINA Hart (2) C. difficile diarrhea: -Positive C. difficile PCR on 06/25/2019 and 07/10/2019, negative C. difficile PCR 07/16/2019 -Per recent admission to [facility], patient is still to be on vancomycin taper however she reports she has completed this -Discussed with GI, will hold on further treatment at this time (3) H pylori ulcer: -Diagnosed 04/2019 via EGD biopsy -Has not completed therapy due to persistent nausea, vomiting, diarrhea -Treatment deferred to GI (4) COPD (chronic obstructive pulmonary disease): -May have mild/early exacerbation given mild wheezing on exam -[id number] nebulizers for now, hold on steroids antibiotics (5) HTN (hypertension): -BP controlled, continue amlodipine (6) DVT prophylaxis: -SCDs due to possible GI bleeding History of Present Illness Chief Complaint: Abdominal Pain, Nausea, Vomiting, Diarrhea Primary Care Provider: KRIS Andre-C 58 year old female who presents to the ED with complaints of abdominal pain, nausea, vomiting, and diarrhea. Patient has had multiple hospital admissions and ED visits over the past several weeks. History dates back to 04/2019 when patient was admitted to [facility] and diagnosed with H. pylori. Given patient's penicillin allergy, she was discharged on Flagyl, bismuth, PPI. Due to ongoing nausea, vomiting, diarrhea. Patient did not tolerate treatment for H. pylori. She was admitted to [facility] 06/24 through 07/01 and diagnosed with C. difficile. Patient was placed on p.o. vancomycin. She was readmitted to [facility] 07/04 through 06/27 for persistent abdominal pain, nausea, vomiting, diarrhea secondary to C. difficile. Once again patient was admitted to [facility] 07/10 through 07/13 for similar complaints however patient signed out AMA. On 07/15, patient was seen at [facility] ED, [facility], [facility] ED. She was seen again yesterday at [facility] ED for abdominal pain, nausea, vomiting, and diarrhea. Patient had an unremarkable workup and was discharged home. Noted that stool for C. diff and stool cultures were negative. Throughout all of these ED visits and hospital admissions, patient was also treated for COPD exacerbations with doxycycline and steroids. Patient reports upon arriving home she developed coffee ground emesis and bright red bleeding per rectum with diarrhea. She also describes bilious emesis. She reports abdominal pain is located mid abdomen and radiates into her back. Describes the pain as severe. She has chronic exertional shortness of breath and cough which is unchanged from baseline. No chest pain. She denies lightheadedness, dizziness, diaphoresis, syncopal events. No fevers or chills. She denies any urinary symptoms. In the ED today, labs are unremarkable as well as CT ABD/pelvis. Hemoglobin stable at 11.5. Patient was noted to have some wheezing on exam. She was mildly hypoxic on room air at 89%, this improved oxygen 3 L via nasal cannula. Patient was given nebulizer treatment, IV Dilaudid, IV Solu-Medrol, IV Zofran, IVF. Allergies Allergy/AdvReac Type Severity Reaction Status Date / Time amoxicillin Allergy Severe swell up Verified 07/17/19 09:58 cant breathe erythromycin base Allergy Severe swell up Verified 07/17/19 09:58 cant breathe gabapentin Allergy Severe Anaphylaxis, Unverified 07/17/19 09:58 Numbness and Swelling of Face ibuprofen Allergy Severe swell up Verified 07/17/19 09:58 cant breathe ketorolac Allergy Severe swell up Verified 07/17/19 09:58 cant breathe moxifloxacin Allergy Severe Anaphylaxis Verified 07/17/19 09:58 naproxen Allergy Severe swell up Verified 07/17/19 09:58 cant breathe oxytetracycline Allergy Severe SWELLS UP Verified 07/17/19 09:58 AND CANT BREATH Penicillins Allergy Severe swell up Verified 07/17/19 09:58 cant breathe morphine Allergy Intermediate Rash and Unverified 07/17/19 09:58 Itching Home Medications Home Medications Medication Instructions Recorded Confirmed Type fluticasone propion-salmeterol 1 inh INHALATION BID 05/09/19 07/17/19 History [Advair Diskus] acetaminophen [Tylenol Extra 500 mg PO QID PRN 06/23/19 07/17/19 History Strength] amlodipine [Norvasc] 5 mg PO QAM 07/15/19 07/17/19 History diphenhydramine HCl [Banophen] 25 mg PO TID 07/15/19 07/17/19 History omeprazole 20 mg PO BID 07/15/19 07/17/19 History tiotropium bromide [Spiriva with 1 cap INHALATION QAM 07/15/19 07/17/19 History HandiHaler] Past Med/Surg History Medical History C. difficile diarrhea COPD (chronic obstructive pulmonary disease) H pylori ulcer HTN (hypertension) Peptic ulcer disease (Inactive) Surgical History History of appendectomy History of cholecystectomy Hx of tonsillectomy (Resolved) Hx of tubal ligation (Resolved) Family History Other Cancer Diabetes Heart disease Hypertension Social History Preferred Language: Namibian Communication Ability: Effective Pyrotechnic Mixer Required: No Beliefs That Will Affect Care: None marital status: Single Current Living Situation: Homeless Current Living Situation Comment: [facility] Other Information That Helps Us Care for You: No Feels Safe at Home: Yes Safety Concerns: Feels Safe At This Time Smoking Status: Current every day smoker Tobacco Type: cigarettes ; Cigarettes Per Day: 10 ; Second Hand Exposure: No ; Hx Alcohol Use: No Hx Substance Use: No Review of Systems Review of Systems: ROS per HPI, all other systems reviewed and negative Physical Exam Physical Exam: Please refer to Dr. Dean's addendum for physical exam. Results & Data Vital Signs (Past 12 Hours) Vital Signs Temp Pulse Pulse Resp BP BP Pulse Ox 07/17/19 11:58 93 H 18 127/85 97 07/17/19 11:30 93 H 18 125/84 100 07/17/19 11:28 91 H 18 93 01/27/20 11:00 97 H 18 137/84 95 07/17/19 10:30 100 H 18 136/82 93 07/17/19 10:00 106 H 18 128/79 95 07/17/19 09:41 98 H 18 97 07/17/19 09:30 98 H 98 H 20 124/76 97 07/17/19 09:00 74 18 136/78 93 07/17/19 08:38 37.2 C 115 H 115 H 20 144/104 H 144/104 H 93 Laboratory Results Short CBC 07/17/19 Range/Units 09:00 WBC 6.09 (4.8-10.8) K/uL Hgb 11.5 L (12.0-16.0) g/dL Hct 35.6 L (37-47) % Plt Count 398 (130-400) K/uL BMP 07/17/19 09:00 Sodium 135 L Potassium 3.7 Chloride 101 Carbon Dioxide 25 BUN 2 L Creatinine 0.77 Glucose 129 H Calcium 9.1 Cardiac Enzymes 07/17/19 Range/Units 09:00 Troponin I < 0.015 (0-0.045) ng/ml Liver Function 07/17/19 Range/Units 09:00 Total Bilirubin 0.2 (0.2-1) mg/dl AST 16 (15-37) U/L ALT 17 (12-78) U/L Alkaline Phosphatase 113 (45-117) U/L Albumin 3.5 (3.4-5.0) gm/dl Diagnostic Findings CXR IMPRESSION: Mild basilar interstitial thickening. No evidence of lobar consolidation. CT ABD/PELVIS IMPRESSION: 1. No evidence of bowel obstruction. No evidence of free air 2. Surgically absent appendix. No evidence of acute diverticulitis 3. Minor bladder wall thickening 4. No evidence of pathologic adenopathy 5. Surgically absent gallbladder Code Status & VTE Plan Code Status Patient is a full code as per Dr. Dean's discussion with her. VTE Prophylaxis Plan VTE Prophylaxis will be ordered: Yes Supervising Physician Co-Signing Physician Notes 58 year old female who presents to the ED with complaints of abdominal pain, nausea, vomiting, and diarrhea History and physical exam performed by me. Detailed history as documented by Cathy MONTGOMERY History significant for multiple hospitalizations here and at [facility] for GI symptoms, C diff and COPD exacerbation, diagnosis of H pylori via EGD in April 2019 [Did not complete therapy due to GI symptoms [nausea, vomiting, diarrhea]], reports coffee-ground emesis and bright red blood per rectum [patient showed pictures on her phone]. On examination, General: Well nourished, well hydrated, average body habitus, no acute distress Eyes: PERRL, conjunctivae normal, not pale, anicteric sclerae, EOM intact bilaterally ENMT: External ear and nose normal, oropharynx normal Neck: Normal visual inspection, no tracheal deviation, no swelling noted Respiratory: Normal respiratory effort, no respiratory distress, on nasal cannula at 2l/min, good air entry bilaterally, minimal expiratory rhonchi in lung bases, no crackles Cardiovascular: Pulse is RRR. S1 S2 no pedal edema Chest (Breasts): Chest: normal inspection of chest Gastrointestinal (Abdomen): Abdomen is not distended, soft, +Epigastric tenderness, no guarding, no palpable hepatosplenomegaly, normal bowel sounds Musculoskeletal: No cyanosis or clubbing, all extremities motor strength 5/5 Genitourinary: No CVA tenderness Skin: No rash noted on gross inspection, No ulcers noted Neurologic: Alert and oriented x 3, No focal weakness, sensation grossly intact Psychiatric: Euthymic affect, normal judgement Abd CT 1. No evidence of bowel obstruction. No evidence of free air 2. Surgically absent appendix. No evidence of acute diverticulitis 3. Minor bladder wall thickening 4. No evidence of pathologic adenopathy 5. Surgically absent gallbladder GI bleed Likely Upper GI. May be related to doxycycline and steroids for COPD ex. Hb is 11.5 IV ppi BID GI consult for possible EGD Patient reported she has completed vancomycin for recent c. diff. C diff testing from ER visit yesterday is negative Has mild rhonchi on physical exam. Will continue nebs for now. No steroids. Continue home amlodipine for hypertension
--- NOTE | 2019-07-17 13:11 | Gastrointestinal Consultation ---
Date of Consultation July 17, 2019 Supervising Physician Co-Signing Physician Notes I saw and evaluated the patient. We are consulted for evaluation of nausea and a question of coffee-ground emesis. The patient has a long history of COPD and is presently on both doxycycline and prednisone. She was found to have H. pylori gastritis by Dr. Peralta Several months ago and therapy was attempted. Unfortunately it appears that the patient developed C. difficile after attempted therapy and is presently on vancomycin. Physical examination No obvious distress No scleral icterus Mild abdominal tenderness Impression: Patient with a history of coffee-ground emesis unclear of etiology. We are certainly happy to provide upper endoscopy for further evaluation. I would recommend that the doxycycline be discontinued as this is the medication well known to cause nausea. History of Present Illness Requesting Physician: Cathy Viveros NP [facility] of Present Illness Ms. Telma Estrada is a 58 yr old female pt of Lupe Childs PA-C, with a hx of DM-2, COPD who underwent EGD here in Nov for epigastric pain with findings of H Pylori gastritis. [facility]. She has recently been C-diff positive. She presented to the ED today with reports of coffee grounds emesis and diarrhea with mucous and dark stool. She has had several admissions over the past few months for nausea, vomiting, diarrhea. C-diff has been positive on 06/25 and 07/10 and she was treated discharged on a vancomycin taper that should be completed on 08/01/19, she verifies that she is taking this as prescribed though she has also been on doxycycline and steroids since that time. She reports ongoing nausea and vomiting several times/day and yesterday she vomiting coffee grounds emesis once. She mentioned that today, she had a "coughing fit," that "made her throw up," and again this consisted of coffee grounds emesis. On admission here, C- diff was (-). Also on arrival, CT with IV, no oral contrast did not show any abnormalities, post cholecystectomy. Hb 11.5, which is her baseline. Recent diagnostic testing has included: Nuclear medicine gastric emptying study on 06/26/19: normal EGD 04/26/19: mild gastritis Bx (+) for H Pylori CT scans: 07/10/19 CT abd/pelvis with IV, no oral contrast: mild duodenal dilation 07/04/19: non contrast CT abd/pelvis borderline size retrocrural node on the right. 06/24/19: CT abd/pelvis with IV, no oral contrast: change in caliber of the coon at the splenic flexure with poor distal distention of the descending colon. 06/02/19: CT abd/pelvis with IV, no oral contrast: few fluid filled loops of small bowel. 04/23/19: non contrast Ct abd/pelvis: no acute abnormalities. Her most recent colonoscopy was completed in 2012 and was normal. An EGD on the same day, revealed a duodenal ulcer and mild gastritis. Allergies Allergy/AdvReac Type Severity Reaction Status Date / Time amoxicillin Allergy Severe swell up Verified 07/17/19 09:58 cant breathe erythromycin base Allergy Severe swell up Verified 07/17/19 09:58 cant breathe gabapentin Allergy Severe Anaphylaxis, Unverified 07/17/19 09:58 Numbness and Swelling of Face ibuprofen Allergy Severe swell up Verified 07/17/19 09:58 cant breathe ketorolac Allergy Severe swell up Verified 07/17/19 09:58 cant breathe moxifloxacin Allergy Severe Anaphylaxis Verified 07/17/19 09:58 naproxen Allergy Severe swell up Verified 07/17/19 09:58 cant breathe oxytetracycline Allergy Severe SWELLS UP Verified 07/17/19 09:58 AND CANT BREATH Penicillins Allergy Severe swell up Verified 07/17/19 09:58 cant breathe morphine Allergy Intermediate Rash and Unverified 07/17/19 09:58 Itching Home Medications Home Medications Medication Instructions Recorded Confirmed Type fluticasone propion-salmeterol 1 inh INHALATION BID 05/09/19 07/17/19 History [Advair Diskus] acetaminophen [Tylenol Extra 500 mg PO QID PRN 06/23/19 07/17/19 History Strength] amlodipine [Norvasc] 5 mg PO QAM 07/15/19 07/17/19 History diphenhydramine HCl [Banophen] 25 mg PO TID 07/15/19 07/17/19 History omeprazole 20 mg PO BID 07/15/19 07/17/19 History tiotropium bromide [Spiriva with 1 cap INHALATION QAM 07/15/19 07/17/19 History HandiHaler] Patient History Medical History C. difficile diarrhea COPD (chronic obstructive pulmonary disease) H pylori ulcer HTN (hypertension) Peptic ulcer disease (Inactive) Surgical History History of appendectomy History of cholecystectomy Hx of tonsillectomy (Resolved) Hx of tubal ligation (Resolved) Family History Other Cancer Diabetes Heart disease Hypertension Social History Preferred Language: Greenlandic Communication Ability: Effective [employer] Required: No Beliefs That Will Affect Care: None marital status: Single Current Living Situation: Homeless Current Living Situation Comment: [facility] Other Information That Helps Us Care for You: No Feels Safe at Home: Yes Safety Concerns: Feels Safe At This Time Smoking Status: Current every day smoker Tobacco Type: cigarettes ; Cigarettes Per Day: 10 ; Second Hand Exposure: No ; Hx Alcohol Use: No Hx Substance Use: No Review of Systems Review of Systems: ROS: Gen: Denies weakness, fevers, weight loss Eyes: No eye redness, or pain, no recent vision changes Resp: +chronic SOB and cough Cardio: No palpitations/irregular beats, no chest pain GI: + diffuse abdominal pain, nausea/vomiting : Denies pain on urination Skin: No jaundice, itching or new rashes Physical Exam Constitutional: WD/WN, vitals as above Eyes: PERRL, conjunctivae normal, anicteric sclerae ENMT: external ear and nose normal, oropharynx normal (O2 by NC) Neck: trachea midline, no thyromegaly Respiratory: normal respiratory effort Auscultation: + wheezes (mild to moderate, throughout); no crackles and no rales Cardiovascular: RRR, no murmur, no edema Gastrointestinal (Abdomen): exquisitely tender when palpated on any area of the abdomen, though abd is soft, non distended. There are normal active BS and no palpable masses. Musculoskeletal: Head/Neck/Chest: + head abnormal to inspection Skin: no rashes, warm and dry Neurologic: PERRL, EOMI, accommodation nl, no face palsy, no dysarthria Psychiatric: Pressed/urgent speech. Seems anxious Provides good eye contact and is pleasant Lymphatic: no cervical or axillary lymphadenopathy Results & Data Vital Signs (Past 12 Hours) Vital Signs Temp Pulse Pulse Resp BP BP Pulse Ox 07/17/19 11:58 93 H 18 127/85 97 07/17/19 11:30 93 H 18 125/84 100 07/17/19 11:28 91 H 18 93 07/17/19 11:00 97 H 18 137/84 95 07/17/19 10:30 100 H 18 136/82 93 07/17/19 10:00 106 H 18 128/79 95 07/17/19 09:41 98 H 18 97 07/17/19 09:30 98 H 98 H 20 124/76 97 07/17/19 09:00 74 18 136/78 93 07/17/19 08:38 37.2 C 115 H 115 H 20 144/104 H 144/104 H 93 Laboratory Results WBC 6, Hb 11.5, Hct 35, Platelets 398, BUN 2, Cr 0.[address] abd/pelvis on 07/17/19 1. No evidence of bowel obstruction. No evidence of free air 2. Surgically absent appendix. No evidence of acute diverticulitis 3. Minor bladder wall thickening 4. No evidence of pathologic adenopathy 5. Surgically absent gallbladder
[2019-07-17] MEDS: PANTOprazole 40 MG in SYRINGE 0 ML IV SCH ×2 (13:13→20:51)
[2019-07-17] MEDS ORDERED: MoRPHine SULFATE 2 MG/ML CARP IV PRN (14:38)
[2019-07-17] MEDS ORDERED: ACETAMINOPHEN 325 MG TAB PO PRN (14:38)
[2019-07-17] MEDS: SODIUM CHLORIDE 0.9% 1000ML 1,000 ML IV SCH (15:01)
[2019-07-17] MEDS: DiphenhydrAMINE HCL 50 MG/ML VIAL IV PRN ×2 (15:01→23:28)
[2019-07-17] MEDS: ALBUT/IPRATROP 3MG/0.5MG NEB 3 ML VIAL NEB SCH ×2 (15:05→19:53)
--- NOTE | 2019-07-17 15:06 | Emergency Department Note ---
Entered by Yulia Cerna acting as a scribe for Aguila Sinclair MD ED Provider Note CHIEF COMPLAINT: Abdominal pain HISTORY OF PRESENT ILLNESS: The patient is a 58 year old female who presents to the Emergency Room with complaints of persistent abdominal pain starting 2 days ago. The patient reports that she has upper abdominal pain that wraps around both of her flanks to her back. She states that this pain sometimes makes her short of breath. 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 She notes that this upper abdominal pain is causing her to have chest discomfort that she describes as sharp. She states that her lower extremities are weak. She adds that she had a bowel movement this morning and that it burned. The patient reports that she has experienced these symptoms before as she came to the [facility] Emergency Department 1 day ago for her symptoms. She states that she called her [place] PCP [employer]RAF[employer] ([employer]) [employer] who advised the patient to come to the Emergency Department. She notes that she has an appointment with her [place] PCP in 1 week. She adds that she received an Albuterol inhaler from EMS DRAFTER (CAD) [employer] that didnt improve her symptoms. The patient reports that she has recently been taking an tibiotics that also are not improving her symptoms. Pt denies LOC, headache, fevers, chills, diaphoresis, visual changes, melena, hematochezia, urinary symptoms, numbness, lymphadenopathy, rash, or other complaints. REVIEW OF SYSTEMS: See HPI for pertinent positives and negatives. A total of ten systems were reviewed and were otherwise negative. PMHx/PSHx: COPD, C. diff diarrhea, PUD, H. pylori ulcer, appendectomy, cholecystectomy, tonsillectomy, tubal ligation. SOCIAL HISTORY: Homeless. Patient lives in correction. Current everyday smoker. PHYSICAL EXAM: GENERAL: Awake, alert, uncomfortable-appearing, in no distress HENT: Normocephalic, atraumatic. Oropharynx unremarkable. EYES: PERRL. Normal conjunctiva. Sclera non-icteric. NECK: Inspection normal. Non-tender. Supple. No nuchal rigidity. FROM. No masses. RESPIRATORY: Coarse breath sounds bilaterally. No wheezes. No rales. Normal respiratory effort. CARDIAC: Tachycardic rate. Normal rhythm. No murmurs. No rubs. Extremities warm and well perfused. Pulses equal. No JVD. GI: Epigastric tenderness to palpation. Soft, non-distended. No rebound or guarding. No masses. RECTAL: Deferred. MUSCULOSKELETAL: Atraumatic. Chest examination reveals no tenderness. The back is symmetrical on inspection without obvious abnormality. There is no CVA tenderness to palpation. No joint edema. LOWER EXTREMITIES: Calves are equal size bilaterally and non-tender. No edema. No discoloration. NEURO: Normal sensorium. No sensory or motor deficits noted. SKIN: No rash or jaundice noted. EMERGENCY DEPARTMENT COURSE: 0802: Past medical records reviewed. The patient was evaluated in room A4B, and a complete history and physical examination were performed. 1100: I reevaluated the patient at this time whose oxygen saturation dropped. She was placed on supplemental oxygen via nasal cannula. She will get another nebulizer treatment. 1121: I discussed the patients case with Laurie Wilder PA-C. Dr. Dianne Martin hospitalist will evaluate the patient for further management. MEDICAL DECISION MAKING: Prior records/ancillary studies reviewed. Triage Nursing notes reviewed and agree them. The patient's history was concerning for shortness of breath, chest pain, vomiting and abdominal pain. Differential diagnosis: Etiologies such as appendicitis, diverticulitis, PUD, biliary pathology, UTI, pancreatitis, obstruction, mesenteric ischemia, aortic pathology, infections, inflammatory bowel disease, renal colic, enteritis, cardiac sources, COPD, pneumonia, as well as others were entertained. Physical examination findings: As above. Patient had coarse breath sounds and was requiring supplemental oxygen. She was hypoxic. ER treatment provided: DuoNeb Solu-Medrol IV Zofran IV Dilaudid On reassessment the patient felt better. Diagnostics interpreted by me: ECG: No acute ischemia The labs revealed an unremarkable CBC and chemistry panel except for mild anemia. Troponin negative. Flu testing negative. LFTs and lipase negative. test negative. Imaging studies: Chest x-ray negative for acute process. CT scan of the abdomen and pelvis was negative. The patient has wheezing and hypoxia. She had nausea, vomiting and diarrhea. There is no obvious source for her abdominal pain and she is doing better with the above medication. She was treated for her wheezing and hypoxia with Solu- Medrol and a DuoNeb. Supplemental oxygen was applied and she is doing better. Further management in the hospital will be necessary. Consultation: A consultation was placed with the [facility] hospitalist. The case was discussed and diagnostics were reviewed. The patient was evaluated in the ER for further treatment. IMPRESSION: Shortness of breath, Hypoxia, Nausea, Vomiting, Diarrhea PLAN: Being Evaluated by Hospitalist The jessicaibe's documentation has been prepared under my direction and personally reviewed by me in its entirety. I confirm that the note above accurately reflects all work, treatment, procedures, and medical decision making performed by me. Impression & Plan Shortness of breath, Vomiting, Hypoxia, Nausea, Diarrhea Past Med/Surg History Medical History C. difficile diarrhea COPD (chronic obstructive pulmonary disease) H pylori ulcer HTN (hypertension) Peptic ulcer disease (Inactive) Surgical History History of appendectomy History of cholecystectomy Hx of tonsillectomy (Resolved) Hx of tubal ligation (Resolved) Family History Other Cancer Diabetes Heart disease Hypertension Social History Preferred Language: Estonian Communication Ability: Effective Medical Billing Assistant Required: No Beliefs That Will Affect Care: None marital status: Single Current Living Situation: Homeless Current Living Situation Comment: correction Other Information That Helps Us Care for You: No Feels Safe at Home: Yes Safety Concerns: Feels Safe At This Time Smoking Status: Current every day smoker Tobacco Type: cigarettes ; Cigarettes Per Day: 10 ; Second Hand Exposure: No ; Hx Alcohol Use: No Hx Substance Use: No Results & Data Vital Signs Vital Signs - 24 hr 07/17/19 08:38 07/17/19 08:44 07/17/19 09:00 Temperature 37.2 C Temperature Source Oral Pulse Rate 115 H 114 H Pulse Rate [Apical] 115 H 74 Pulse Rate from SpO2 Sensor 116 H Pulse Rhythm Pulse Rhythm [Apical] Regular Pulse Strength [Apical] Normal Respiratory Rate 20 24 18 Respiratory Effort / Characteristics Non-Labored Spontaneous Non-Labored Spontaneous Respiratory Depth Normal Normal Respiratory Pattern Regular Regular Blood Pressure 144/104 H 144/104 H Blood Pressure [Right Arm] 144/104 H 136/78 Blood Pressure Mean 117 113 Blood Pressure Mean [Right Arm] 117 97 Blood Pressure Position Lying Blood Pressure Position [Right Arm] Sitting Sitting Pulse Oximetry 93 93 93 Oxygen Delivery Method Room Air Room Air Oxygen Flow Rate Sepsis Recent Fever Within 48 Hours No Sepsis New/Unexplained Change in Mental Status No Sepsis Action Taken by Nursing No Action Required Pulse Oximetry Post Tiitration 07/17/19 09:10 07/17/19 09:15 07/17/19 09:30 Temperature Temperature Source Pulse Rate 114 H 121 H 108 H Pulse Rate [Apical] 98 H Pulse Rate from SpO2 Sensor 113 H 119 H 108 H Pulse Rhythm Regular Pulse Rhythm [Apical] Pulse Strength [Apical] Respiratory Rate 18 18 17 Respiratory Effort / Characteristics Non-Labored Spontaneous Respiratory Depth Normal Respiratory Pattern Regular Blood Pressure Blood Pressure [Right Arm] 124/76 Blood Pressure Mean Blood Pressure Mean [Right Arm] 92 Blood Pressure Position Blood Pressure Position [Right Arm] Sitting Pulse Oximetry 93 93 90 Oxygen Delivery Method Nasal Cannula Oxygen Flow Rate 2 Sepsis Recent Fever Within 48 Hours Sepsis New/Unexplained Change in Mental Status Sepsis Action Taken by Nursing Pulse Oximetry Post Tiitration 97 07/17/19 09:35 07/17/19 09:41 07/17/19 09:45 Temperature Temperature Source Pulse Rate 103 H 98 H Pulse Rate [Apical] 98 H Pulse Rate from SpO2 Sensor 103 H 99 H Pulse Rhythm Pulse Rhythm [Apical] Pulse Strength [Apical] Respiratory Rate 13 18 17 Respiratory Effort / Characteristics Non-Labored Respiratory Depth Respiratory Pattern Blood Pressure 124/76 Blood Pressure [Right Arm] Blood Pressure Mean 106 Blood Pressure Mean [Right Arm] Blood Pressure Position Blood Pressure Position [Right Arm] Pulse Oximetry 97 97 100 Oxygen Delivery Method Nasal Cannula Oxygen Flow Rate 3 Sepsis Recent Fever Within 48 Hours Sepsis New/Unexplained Change in Mental Status Sepsis Action Taken by Nursing Pulse Oximetry Post Tiitration 07/17/19 10:00 07/17/19 10:01 07/17/19 10:30 Temperature Temperature Source Pulse Rate 106 H 111 H 106 H Pulse Rate [Apical] 106 H 100 H Pulse Rate from SpO2 Sensor 105 H 112 H Pulse Rhythm Pulse Rhythm [Apical] Pulse Strength [Apical] Respiratory Rate 24 26 H 23 Respiratory Effort / Characteristics Non-Labored Non-Labored Respiratory Depth Normal Normal Respiratory Pattern Regular Regular Blood Pressure 128/79 Blood Pressure [Right Arm] 128/79 136/82 Blood Pressure Mean 96 Blood Pressure Mean [Right Arm] 95 100 Blood Pressure Position Blood Pressure Position [Right Arm] Sitting Sitting Pulse Oximetry 95 97 93 Oxygen Delivery Method Nasal Cannula Nasal Cannula Oxygen Flow Rate 3 3 Sepsis Recent Fever Within 48 Hours Sepsis New/Unexplained Change in Mental Status Sepsis Action Taken by Nursing Pulse Oximetry Post Tiitration 07/17/19 10:33 07/17/19 10:45 07/17/19 11:00 Temperature Temperature Source Pulse Rate 103 H 101 H 97 H Pulse Rate [Apical] 97 H Pulse Rate from SpO2 Sensor 105 H 100 H 97 H Pulse Rhythm Pulse Rhythm [Apical] Pulse Strength [Apical] Respiratory Rate 28 H 27 H 21 Respiratory Effort / Characteristics Non-Labored Respiratory Depth Normal Respiratory Pattern Regular Blood Pressure 136/82 137/84 Blood Pressure [Right Arm] 137/84 Blood Pressure Mean 99 96 Blood Pressure Mean [Right Arm] 101 Blood Pressure Position Blood Pressure Position [Right Arm] Sitting Pulse Oximetry 94 93 93 Oxygen Delivery Method Nasal Cannula Oxygen Flow Rate 3 Sepsis Recent Fever Within 48 Hours Sepsis New/Unexplained Change in Mental Status Sepsis Action Taken by Nursing Pulse Oximetry Post Tiitration 07/17/19 11:01 07/17/19 11:15 07/17/19 11:28 Temperature Temperature Source Pulse Rate 95 H 97 H Pulse Rate [Apical] 91 H Pulse Rate from SpO2 Sensor 95 H 98 H Pulse Rhythm Pulse Rhythm [Apical] Pulse Strength [Apical] Respiratory Rate 22 26 H 18 Respiratory Effort / Characteristics Non-Labored Respiratory Depth Respiratory Pattern Blood Pressure Blood Pressure [Right Arm] Blood Pressure Mean Blood Pressure Mean [Right Arm] Blood Pressure Position Blood Pressure Position [Right Arm] Pulse Oximetry 93 91 93 Oxygen Delivery Method Nasal Cannula Oxygen Flow Rate 2 Sepsis Recent Fever Within 48 Hours Sepsis New/Unexplained Change in Mental Status Sepsis Action Taken by Nursing Pulse Oximetry Post Tiitration 07/17/19 11:30 07/17/19 11:31 07/17/19 11:45 Temperature Temperature Source Pulse Rate 89 94 H 109 H Pulse Rate [Apical] 93 H Pulse Rate from SpO2 Sensor 89 94 H 107 H Pulse Rhythm Pulse Rhythm [Apical] Regular Pulse Strength [Apical] Normal Respiratory Rate 22 15 26 H Respiratory Effort / Characteristics Non-Labored Respiratory Depth Normal Respiratory Pattern Regular Blood Pressure 125/84 Blood Pressure [Right Arm] 125/84 Blood Pressure Mean 97 Blood Pressure Mean [Right Arm] 97 Blood Pressure Position Blood Pressure Position [Right Arm] Sitting Pulse Oximetry 100 100 99 Oxygen Delivery Method Nasal Cannula Oxygen Flow Rate 3 Sepsis Recent Fever Within 48 Hours Sepsis New/Unexplained Change in Mental Status Sepsis Action Taken by Nursing Pulse Oximetry Post Tiitration 07/17/19 11:58 07/17/19 12:00 07/17/19 12:01 Temperature Temperature Source Pulse Rate Pulse Rate [Apical] 93 H Pulse Rate from SpO2 Sensor 95 H 92 H Pulse Rhythm Pulse Rhythm [Apical] Regular Pulse Strength [Apical] Normal Respiratory Rate 18 Respiratory Effort / Characteristics Non-Labored Respiratory Depth Normal Respiratory Pattern Regular Blood Pressure 125/80 Blood Pressure [Right Arm] 127/85 Blood Pressure Mean 103 Blood Pressure Mean [Right Arm] 99 Blood Pressure Position Blood Pressure Position [Right Arm] Sitting Pulse Oximetry 97 96 97 Oxygen Delivery Method Nasal Cannula Oxygen Flow Rate 3 Sepsis Recent Fever Within 48 Hours Sepsis New/Unexplained Change in Mental Status Sepsis Action Taken by Nursing Pulse Oximetry Post Tiitration Home Medications Current Medication List: was personally reviewed by me Laboratory Data Attestation: I reviewed the patient's lab results. Result diagrams: 07/17/19 09:00 07/17/19 09:00 Lab Results 07/17/19 07/17/19 07/17/19 Range/Units 09:00 09:00 09:00 WBC 6.09 (4.8-10.8) K/uL RBC 3.93 L (4.2-5.4) M/uL Hgb 11.5 L (12.0-16.0) g/dL Hct 35.6 L (37-47) % MCV 90.6 (80-100) fL MCH 29.3 (25-34) pg MCHC 32.3 (32-36) g/dL RDW Std Deviation 52.2 H (36.4-46.3) fL RDW Coeff of [place] 15.6 H (11.5-14.5) % Plt Count 398 (130-400) K/uL MPV 9.1 (7.4-10.4) fL Immature Gran % (Auto) 1.0 % Neut % (Auto) 71.7 % Lymph % (Auto) 15.4 % Bertie % (Auto) 9.7 % Eos % (Auto) 1.5 % Baso % (Auto) 0.7 % Immature Gran # (Auto) 0.06 H (0.00-0.02) K/uL Neut # (Auto) 4.37 (1.4-6.5) K/uL Lymph # (Auto) 0.94 L (1.2-3.4) K/uL Bertie # (Auto) 0.59 (0.11-0.59) K/uL Eos # (Auto) 0.09 (0-0.5) K/uL Baso # (Auto) 0.04 (0-0.2) K/uL Sodium 135 L (136-145) mmol/L Potassium 3.7 (3.5-5.1) mmol/L Chloride 101 (98-107) mmol/L Carbon Dioxide 25 (21-32) mmol/L Anion Gap 9.0 (3-11) BUN 2 L (7-18) mg/dl Creatinine 0.77 (0.6-1.2) mg/dl Est Cr Clr Drug Dosing 67.6 ml/min Est GFR ( Amer) 100.0 Est GFR (Non-Af Amer) 86.3 BUN/Creatinine Ratio 2.1 L (10-20) Glucose 129 H (70-99) mg/dl Calcium 9.1 (8.5-10.1) mg/dl Total Bilirubin 0.2 (0.2-1) mg/dl AST 16 (15-37) U/L ALT 17 (12-78) U/L Alkaline Phosphatase 113 (45-117) U/L Troponin I < 0.015 (0-0.045) ng/ml Total Protein 7.5 (6.4-8.2) gm/dl Albumin 3.5 (3.4-5.0) gm/dl Globulin 4.0 (2.5-4.0) gm/dl Albumin/Globulin Ratio 0.9 (0.9-2) Lipase 90 (73-393) U/L HCG, Qual Negative (Negative) Influenza Type A Ag (Neg) Influenza Type B Ag (Neg) 07/17/19 Range/Units 11:50 WBC (4.8-10.8) K/uL RBC (4.2-5.4) M/uL Hgb (12.0-16.0) g/dL Hct (37-47) % MCV (80-100) fL MCH (25-34) pg MCHC (32-36) g/dL RDW Std Deviation (36.4-46.3) fL RDW Coeff of [place] (11.5-14.5) % Plt Count (130-400) K/uL MPV (7.4-10.4) fL Immature Gran % (Auto) % Neut % (Auto) % Lymph % (Auto) % Bertie % (Auto) % Eos % (Auto) % Baso % (Auto) % Immature Gran # (Auto) (0.00-0.02) K/uL Neut # (Auto) (1.4-6.5) K/uL Lymph # (Auto) (1.2-3.4) K/uL Bertie # (Auto) (0.11-0.59) K/uL Eos # (Auto) (0-0.5) K/uL Baso # (Auto) (0-0.2) K/uL Sodium (136-145) mmol/L Potassium (3.5-5.1) mmol/L Chloride (98-107) mmol/L Carbon Dioxide (21-32) mmol/L Anion Gap (3-11) BUN (7-18) mg/dl Creatinine (0.6-1.2) mg/dl Est Cr Clr Drug Dosing ml/min Est GFR ( Amer) Est GFR (Non-Af Amer) BUN/Creatinine Ratio (10-20) Glucose (70-99) mg/dl Calcium (8.5-10.1) mg/dl Total Bilirubin (0.2-1) mg/dl AST (15-37) U/L ALT (12-78) U/L Alkaline Phosphatase (45-117) U/L Troponin I (0-0.045) ng/ml Total Protein (6.4-8.2) gm/dl Albumin (3.4-5.0) gm/dl Globulin (2.5-4.0) gm/dl Albumin/Globulin Ratio (0.9-2) Lipase (73-393) U/L HCG, Qual (Negative) Influenza Type A Ag Neg for Influ A (Neg) Influenza Type B Ag Neg for Influ B (Neg) Administered Medications Diphenhydramine HCl (Benadryl) 12.5 mg IV Q6H PRN PRN Reason: Itching Stop: 08/16/19 14:43 Last Admin: 07/17/19 15:01 Dose: 12.5 mg Documented by: [id number] Pantoprazole Sodium 40 mg/ (Syringe) 10 mls @ 5 mls/min IV BID@0900,2100 VIKASH Stop: 08/16/19 12:59 Last Admin: 07/17/19 13:13 Dose: 5 mls/min Documented by: [id number] Sodium Chloride (Nss 1000ml) 1,000 mls @ 80 mls/hr IV [id number] VIKASH Stop: 08/16/19 14:44 Last Admin: 07/17/19 15:01 Dose: 80 mls/hr Documented by: [id number] Morphine Sulfate (Morphine Sulfate) 2 mg IV Q6H PRN PRN Reason: Pain Stop: 07/31/19 14:37 Last Admin: 07/17/19 15:01 Dose: 2 mg Documented by: [id number] Discontinued Medications Albuterol (Duoneb) 3 ml NEB NOW STA Stop: 07/17/19 09:04 Last Admin: 07/17/19 09:40 Dose: 3 ml Documented by: [id number] Albuterol (Duoneb) 3 ml NEB NOW STA Stop: 07/17/19 11:10 Last Admin: 07/17/19 11:27 Dose: 3 ml Documented by: [id number] Hydromorphone HCl (Dilaudid) 0.5 mg IV NOW STA Stop: 07/17/19 08:59 Last Admin: 07/17/19 09:30 Dose: 0.5 mg Documented by: [id number] Hydromorphone HCl (Dilaudid) 0.5 mg IV Q15M PRN PRN Reason: Pain Stop: 07/31/19 10:16 Last Admin: 07/17/19 11:54 Dose: 0.5 mg Documented by: [id number] Admin: 07/17/19 10:31 Dose: 0.5 mg Documented by: [id number] Sodium Chloride (Nss 1000ml) 1,000 mls @ 999 mls/hr IV .Q1H1M STA Stop: 07/17/19 09:58 Last Infusion: 07/17/19 10:31 Dose: 0 mls/hr Documented by: [id number] Admin: 07/17/19 09:30 Dose: 999 mls/hr Documented by: [id number] Ioversol (Optiray 320 100ml) 94 ml IV ONCE PRN PRN Reason: Interaction Checking Stop: 07/21/19 10:17 Last Admin: 07/17/19 10:19 Dose: 94 ml Documented by: [id number] Methylprednisolone (Solumedrol) 125 mg IV NOW STA Stop: 07/17/19 11:10 Last Admin: 07/17/19 11:46 Dose: 125 mg Documented by: [id number] Ondansetron HCl (Zofran) 4 mg IV NOW STA Stop: 07/17/19 08:59 Last Admin: 07/17/19 09:30 Dose: 4 mg Documented by: [id number] Imaging Data Radiologist's Impression: Radiology results as stated below per my review and the radiologist's interpretation: CT abd pelvis IV con only CLINICAL HISTORY: vomiting, abd pain COMPARISON STUDY: June 23, 2019 TECHNIQUE: The patient was scanned in a dynamic helical fashion during intravenous administration of 94 cc of Optiray 320. A dose lowering technique was utilized adhering to the principles of ALARA. CT DOSE: 254.72 mGy.cm FINDINGS: Lower chest: There is minor lower lobe bronchial wall thickening. There are minor basilar atelectatic changes. Liver: The contrast-enhanced liver is normal in size, contour, and attenuation. There is no intrahepatic biliary ductal dilatation. The hepatic veins and portal veins are patent. Gallbladder: Surgically absent Spleen: Normal in size and attenuation. Pancreas: Unremarkable. Adrenal glands: Unremarkable. Kidneys: There is symmetric renal cortical enhancement. The kidneys are normal in size without hydronephrosis. Bowel: There are no transition zones to indicate bowel obstruction. By history the appendix is surgically absent. There is no evidence of acute diverticulitis. Peritoneum: There is no intraperitoneal free air or abdominal ascites. Vasculature: The abdominal aorta is normal in course and caliber. Adenopathy: None. Pelvic viscera: There is minor bladder wall thickening. No pathologic adnexal masses are visualized. Skeletal structures: No destructive osseous lesions are seen. IMPRESSION: 1. No evidence of bowel obstruction. No evidence of free air 2. Surgically absent appendix. No evidence of acute diverticulitis 3. Minor bladder wall thickening 4. No evidence of pathologic adenopathy 5. Surgically absent gallbladder ACT 112: Negative or not required by law. Electronically signed by: Sly Montana M.D. 07/17/2019 10:30 AM XR chest 1V portable CLINICAL HISTORY: Atypical chest pain COMPARISON STUDY: 07/15/2019 FINDINGS: The heart is normal in size. There is no failure. There is slight interstitial thickening at the lung bases. There are no pleural effusions. There is no lobar consolidation.[ IMPRESSION: Mild basilar interstitial thickening. No evidence of lobar consolidation. ACT 112: Negative or not required by law. Electronically signed by: Sly Montana M.D. 07/17/2019 9:35 AM ECG Data Attestation: I personally reviewed and interpreted this ECG as follows: Indication: + abdominal pain Rate (beats per minute): 116 Rhythm: sinus tachycardia ECG Intervals/blocks: + Normal QRS ECG [place]: + Normal ECG ST segments: no ST depression and no ST elevation Blood Pressure Blood Pressure Findings: Elevated blood pressure Blood Pressure Disposition: further management by hospitalist Discharge Plan Visit Data *Final* Discharge Date/Time: 07/17/19 14:05 Chief Complaint: Chest Pain ED Provider: Aguila Sinclair Discharge Problem: Shortness of breath, Vomiting, Hypoxia, Nausea, Diarrhea Patient Disposition: Admitted As Inpatient Discharge Instructions Interventions: ED Discharge Assessment Last Done: 07/17/19 14:05 The scribe's documentation has been prepared under my direction and personally reviewed by me in its entirety. I confirm that the note above accurately reflects all work, treatment, procedures, and medical decision making performed by me.
[2019-07-17 18:00] LABS: Hematocrit (blood only) 35.2 % (37-47); Hemoglobin 11.3 g/dL (12.0-16.0)
[2019-07-17] MEDS: MoRPHine SULFATE 2 MG/ML CARP IV PRN ×2 (18:43→23:29)
--- NOTE | 2019-07-17 20:02 | Electrocardiogram Report ---
Test Reason : Blood Pressure : / mmHG Vent. Rate : 116 BPM Atrial Rate : 116 BPM P-R Int : 136 ms QRS Dur : 076 ms QT Int : 318 ms P-R-T Axes : 074 070 049 degrees QTc Int : 442 ms Poor data quality, interpretation may be adversely affected Sinus tachycardia Possible Left atrial enlargement Borderline ECG When compared with ECG of 15-JUL-2019 17:06, No significant change was found Confirmed by Darvin Alcazar ([id number]) on 07/17/2019 8:02:23 PM Referred By: Confirmed By:Neil Alcazar
[2019-07-18] MEDS: SODIUM CHLORIDE 0.9% 1000ML 1,000 ML IV SCH ×2 (03:30→18:11)
[2019-07-18] MEDS ORDERED: BENZONATATE 100 MG CAPSULE PO PRN (03:35)
[2019-07-18] MEDS: MoRPHine SULFATE 2 MG/ML CARP IV PRN ×4 (03:38→21:10)
[2019-07-18] MEDS ORDERED: MoRPHine SULFATE 2 MG/ML CARP IV STA (06:46)
[2019-07-18 06:50] LABS: Hematocrit (blood only) 33.7 % (37-47); Hemoglobin 10.5 g/dL (12.0-16.0); Mean Corpuscular Hemoglobin 28.6 pg (25-34); Mean Corpuscular Hgb Conc 31.2 g/dL (32-36); Mean Corpuscular Volume 91.8 fL (80-100); Platelet Count 347 K/uL (130-400); RDW Coefficient of Variation 15.8 % (11.5-14.5); RDW Standard Deviation 53.2 fL (36.4-46.3); Red Blood Count 3.67 M/uL (4.2-5.4); White Blood Count 6.78 K/uL (4.8-10.8)
[2019-07-18] MEDS: ALBUT/IPRATROP 3MG/0.5MG NEB 3 ML VIAL NEB SCH ×4 (07:08→19:38)
[2019-07-18 07:20] LABS: BUN Creatinine Ratio 5.8 (10-20); Calcium 9.3 mg/dl (8.5-10.1); Creatinine Clr Calc Pharmacy 98.3 ml/min; Est GFR (Non-African American) 106.1; Potassium 4.7 mmol/L (3.5-5.1)
[2019-07-18] MEDS: AMLODIPINE BESYLATE 5 MG TAB PO SCH (09:35)
[2019-07-18] MEDS: FLUTICASONE/VILANTEROL 100/25MCG 14 PUFFS/INHALER INH SCH (09:36)
[2019-07-18] MEDS: UMECLIDINIUM BROMIDE 62.5MCG/BLISTER 7 PUFFS/INHALER INH SCH (09:36)
[2019-07-18] MEDS: PANTOprazole 40 MG in SYRINGE 0 ML IV SCH ×2 (09:38→20:25)
[2019-07-18] MEDS ORDERED: ALBUT/IPRATROP 3MG/0.5MG NEB 3 ML VIAL NEB STA (11:29)
--- NOTE | 2019-07-18 11:31 | Anesthesiology Consultation ---
Date of Service July 18, 2019 Assessment & Plan Chart Review Chart Review: Acceptable Risk for Surgery and Patient NOT seen in Pre Admission Testing Consults Requested none History Surgery Operation Date: 07/18/19 15:30 Proposed Procedures p Esophagogastroduodenoscopy Dr Jackson - Deniz Jackson Height/Weight Height: 5 ft 1 in Weight: 59.6 kg Allergies Allergy/AdvReac Type Severity Reaction Status Date / Time amoxicillin Allergy Severe swell up Verified 07/18/19 11:14 cant breathe erythromycin base Allergy Severe swell up Verified 07/18/19 11:14 cant breathe gabapentin Allergy Severe Anaphylaxis, Verified 07/18/19 11:14 Numbness and Swelling of Face ibuprofen Allergy Severe swell up Verified 07/18/19 11:14 cant breathe ketorolac Allergy Severe swell up Verified 07/18/19 11:14 cant breathe moxifloxacin Allergy Severe Anaphylaxis Verified 07/18/19 11:14 naproxen Allergy Severe swell up Verified 07/18/19 11:14 cant breathe oxytetracycline Allergy Severe SWELLS UP Verified 07/18/19 11:14 AND CANT BREATH Penicillins Allergy Severe swell up Verified 07/18/19 11:14 cant breathe morphine Allergy Intermediate Rash and Verified 07/18/19 11:14 Itching Medications Home Medications Medication Instructions Recorded Confirmed Last Taken fluticasone propion-salmeterol 1 inh INHALATION BID 05/09/19 07/18/19 07/17/19 [Advair Diskus] acetaminophen [Tylenol Extra 500 mg PO QID PRN 06/23/19 07/18/19 07/17/19 06:00 Strength] amlodipine [Norvasc] 5 mg PO QAM 07/15/19 07/18/19 07/17/19 diphenhydramine HCl [Banophen] 25 mg PO TID 07/15/19 07/18/19 07/17/19 omeprazole 20 mg PO BID 07/15/19 07/18/19 07/17/19 tiotropium bromide [Spiriva with 1 cap INHALATION QAM 07/15/19 07/18/19 07/17/19 HandiHaler] Active Medications Generic Name Dose Route Start Last Admin Trade Name Freq PRN Reason Stop Dose Admin Albuterol 3 ml 07/17/19 15:00 07/18/19 11:21 Duoneb NEB 08/16/19 14:59 Not Given QIDR VIKASH Amlodipine Besylate 5 mg 07/18/19 09:00 07/18/19 09:35 Norvasc PO 08/17/19 08:59 5 mg QAM VIKASH Administration Benzonatate 100 mg 07/18/19 03:35 07/18/19 03:53 Tessalon Perle PO 08/17/19 03:34 100 mg TID PRN Administration Cough Diphenhydramine HCl 12.5 mg 07/17/19 14:44 07/17/19 23:28 Benadryl IV 08/16/19 14:43 12.5 mg Q6H PRN Administration Itching Fluticasone/Vilanterol 1 puffs 07/18/19 09:00 07/18/19 09:36 Breo Ellipta 100/25 Mcg Inh INH 08/17/19 08:59 1 puffs DAILY VIKASH Administration Pantoprazole Sodium 40 mg/ 10 mls @ 5 mls/min 07/17/19 13:00 07/18/19 09:38 Syringe IV 08/16/19 12:59 5 mls/min BID@0900,2100 VIKASH Administration Sodium Chloride 1,000 mls @ 80 mls/hr 07/17/19 14:45 07/18/19 03:30 Nss 1000ml IV 08/16/19 14:44 80 mls/hr .[id number] VIKASH Administration Morphine Sulfate 2 mg 07/17/19 18:17 07/18/19 03:38 Morphine Sulfate IV 07/31/19 14:37 2 mg Q4H PRN Administration Severe Pain Umeclidinium [place] 1 puffs 07/18/19 09:00 07/18/19 09:36 Incruse Ellipta INH 08/17/19 08:59 1 puffs QAM VIKASH Administration NPO Date Last Intake of Fluids: 07/17/19 Time Last Intake of Fluids: 23:59 Date Last Intake of Solids: 07/17/19 Time Last Intake of Solids: 23:59 Past Medical History Medical History C. difficile diarrhea COPD (chronic obstructive pulmonary disease) H pylori ulcer HTN (hypertension) Peptic ulcer disease (Inactive) Past Family History Family History Other Cancer Diabetes Heart disease Hypertension Past Surgical History Surgical History History of appendectomy History of cholecystectomy Hx of tonsillectomy (Resolved) Hx of tubal ligation (Resolved) Social History Smoking Status: Current every day smoker tobacco type: cigarettes Smoking cigarettes per day: 10 Hx Alcohol Use: No Hx Substance Use: No Physical Exam Vital Signs Last Vital Signs Temp 36.6 C 07/18/19 11:16 Pulse 81 07/18/19 11:16 Resp 16 07/18/19 11:16 BP 123/75 07/18/19 11:16 Pulse Ox 99 07/18/19 11:16 Testing Laboratory Results 07/18/19 06:36 07/18/19 06:36
[2019-07-18] MEDS ORDERED: ATROPINE SULFATE 0.1 MG/ML 10ML SYR IV PRN (11:35)
[2019-07-18] MEDS ORDERED: ePHEDrine sulfate 50 MG/ML AMP IV PRN (11:35)
--- NOTE | 2019-07-18 11:35 | Gastroenterology Progress Note ---
Date of Service July 18, 2019 Assessment & Plan (1) Nausea vomiting and diarrhea: Plan for EGD today Subjective No bleeding or emesis overnight Physical Exam Constitutional: WD/WN, vitals as above Cardiovascular: RRR, no murmur, no edema Gastrointestinal (Abdomen): normal bowel sounds, soft, nontender, no hepatosplenomegaly Results & Data Vital Signs (Past 12 Hours) Vital Signs Temp Pulse Resp BP BP Pulse Ox 07/18/19 11:16 36.6 C 81 16 123/75 99 07/18/19 07:12 36.9 C 64 16 123/72 97
--- NOTE | 2019-07-18 13:38 | Anesthesiology Progress Note ---
Date of Service July 18, 2019 Anesthesia Post Procedure Vital Signs Vital Signs: Temp Pulse Pulse Pulse Pulse Resp BP 07/18/19 12:51 90 18 07/18/19 12:21 91 H 18 07/18/19 12:06 111 H 18 07/18/19 11:37 79 18 07/18/19 11:16 36.6 C 81 16 07/18/19 07:12 36.9 C 64 16 07/17/19 23:00 36.5 C 75 18 07/17/19 15:10 86 07/17/19 14:18 37.2 C 89 20 07/17/19 14:05 37.2 C 102 H 19 150/96 H 07/17/19 14:04 102 H 19 07/17/19 13:45 84 19 BP BP Pulse Ox 07/18/19 12:51 120/70 98 07/18/19 12:21 142/74 H 100 07/18/19 12:06 142/73 H 98 07/18/19 11:37 99 07/18/19 11:16 123/75 99 07/18/19 07:12 123/72 97 07/17/19 23:00 115/71 95 07/17/19 15:10 92 07/17/19 14:18 148/76 H 90 07/17/19 14:05 94 07/17/19 14:04 150/96 H 94 07/17/19 13:45 96 Pain Intensity Chest: Pain Intensity: 6 Bilateral Generalized: Pain Intensity: 8 Transfer of Care Handoff Completed per policy Notes Mental Status: alert / awake / arousable Patient Amnestic to Procedure: Yes Nausea / Vomiting: adequately controlled Pain: adequately controlled Airway Patency, RR, SpO2: stable & adequate BP & HR: stable & adequate Hydration State: stable & adequate Anesthetic Complications: no major complications apparent and Pt Satisfied with anesthetic care
[2019-07-18] MEDS ORDERED: bisacodyL 5 MG TABEC PO SCH (14:00)
[2019-07-18] MEDS ORDERED: DIPHENOXYLATE/ATROPINE 2.5/0.025MG TAB PO ONE (14:15)
[2019-07-18] MEDS: ALUMINUM/MAGNESIUM SUSP 30 ML UDC PO SCH ×2 (14:46→18:11)
--- NOTE | 2019-07-18 16:21 | Hospitalist Progress Note ---
Date of Service July 18, 2019 Assessment & Plan (1) Nausea vomiting and diarrhea: -Admit to [facility] -Patient presenting from home with reports of persistent abdominal pain, nausea, vomiting, diarrhea -As noted in HPI, patient has had several hospital admissions and ED visits for these complaints -Today, patient reporting coffee-ground emesis and bright red bleeding per rectum; Hgb stable at 11.5, CT ABD/pelvis negative for acute findings -IV PPI twice daily -PRN antiemetics, cautious use of narcotics due to concerns for drug-seeking behavior -Appreciate GI input and recommendation -Status post EGD -Discussed about use of nonnarcotic analgesics and she mentioned that she tried Bentyl before and that did not work -We will start Lomotil -Advance diet as tolerated (2) C. difficile diarrhea: -Positive C. difficile PCR on 06/25/2019 and 07/10/2019, negative C. difficile PCR 07/16/2019 -Per recent admission to [facility], patient is still to be on vancomycin taper however she reports she has completed this -Discussed with GI, will hold on further treatment at this time (3) H pylori ulcer: -Diagnosed 04/2019 via EGD biopsy -Has not completed therapy due to persistent nausea, vomiting, diarrhea -Treatment deferred to GI -Await biopsy (4) COPD (chronic obstructive pulmonary disease): -May have mild/early exacerbation given mild wheezing on exam -[id number] nebulizers for now, hold on steroids antibiotics -Advised to quit smoking -No signs of exacerbations (5) HTN (hypertension): -BP controlled, continue amlodipine (6) DVT prophylaxis: -SCDs due to possible GI bleeding Subjective 07/18/2019 The patient was seen and examined in the medical floor She complains to have ongoing nausea vomiting and diarrhea for the last 3 weeks Mentioned that she has had 4 loose stool throughout the day but none is docu mented in the chart She complains pain is out of control and she needs intravenous medication Status post EGD and was told that it was negative Review of Systems Review of Systems: All systems reviewed and are unremarkable except as noted below Gastrointestinal: + abdominal pain, + bloating, + nausea, + vomiting and + diarrhea/loose stools Physical Exam Physical Exam: Lying in bed comfortably Constitutional: well developed, well nourished, + acute distress (Abdominal pain) and + obese; not ill appearing Eyes: PERRL, conjunctivae normal, anicteric sclerae ENMT: external ear and nose normal, oropharynx normal Neck: trachea midline, no thyromegaly Respiratory: normal respiratory effort; no respiratory distress Auscultation: lungs clear to auscultation bilaterally Cardiovascular: Rate/Rhythm: regular rate and regular rhythm Heart Sounds: no murmur Gastrointestinal (Abdomen): Inspection/Auscultation: abdomen normal to inspection; abdomen not distended Percussion/Palpation: + abdomen tender (All over and especially in epigastrium) and abdomen soft; no guarding and abdomen not rigid Musculoskeletal: No acute arthritis in any joints Lymphatic: no cervical or axillary lymphadenopathy Results & Data Vital Signs (Past 12 Hours) Vital Signs Temp Pulse Resp BP BP Pulse Ox 07/18/19 15:29 86 22 91 07/18/19 15:18 37.2 C 81 18 115/72 90 07/18/19 12:51 90 18 120/70 98 07/18/19 12:21 91 H 18 142/74 H 100 07/18/19 12:06 111 H 18 142/73 H 98 07/18/19 11:37 79 18 99 07/18/19 11:16 36.6 C 81 16 123/75 99 07/18/19 07:12 36.9 C 64 16 123/72 97 Laboratory Results Short CBC 07/17/19 07/18/19 Range/Units 17:44 06:36 WBC 6.78 (4.8-10.8) K/uL Hgb 11.3 L 10.5 L (12.0-16.0) g/dL Hct 35.2 L 33.7 L (37-47) % Plt Count 347 (130-400) K/uL BMP 07/18/19 06:36 Sodium 140 Potassium 4.7 D Chloride 108 H Carbon Dioxide 29 BUN 3 L Creatinine 0.53 L Glucose 93 Calcium 9.3 Medications Administered Current Inpatient Medications Acetaminophen (Tylenol) 650 mg PO Q4H PRN PRN Reason: pain/fever Stop: 08/16/19 14:37 Al Hydrox/Mg Hydrox/Simethicone (Maalox) 15 ml PO Q6 VIKASH Stop: 08/17/19 14:29 Last Admin: 07/18/19 14:46 Dose: 15 ml Documented by: Albuterol (Duoneb) 3 ml NEB QIDR [facility] Stop: 08/16/19 14:59 Last Admin: 07/18/19 15:28 Dose: 3 ml Documented by: Amlodipine Besylate (Norvasc) 5 mg PO QAM [facility] Stop: 08/17/19 08:59 Last Admin: 07/18/19 09:35 Dose: 5 mg Documented by: Atropine Sulfate (Atropine Sulfate) 0.5 mg IV Q1M PRN PRN Reason: PACU Use-HR<40 &/or Bradycardi Stop: 07/18/19 16:35 Benzonatate (Tessalon Perle) 100 mg PO TID PRN PRN Reason: Cough Stop: 08/17/19 03:34 Last Admin: 07/18/19 03:53 Dose: 100 mg Documented by: Bisacodyl (Dulcolax) 20 mg PO TODAY@1400 [facility] Stop: 07/19/19 04:00 Last Admin: 07/18/19 14:45 Dose: 20 mg Documented by: Diphenhydramine HCl (Benadryl) 12.5 mg IV Q6H PRN PRN Reason: Itching Stop: 08/16/19 14:43 Last Admin: 07/17/19 23:28 Dose: 12.5 mg Documented by: Ephedrine Sulfate (Ephedrine Sulfate) 5 mg IV Q5M PRN PRN Reason: PACU Use Only-SBP<90 mmHg Stop: 07/18/19 16:35 Fluticasone/Vilanterol (Breo Ellipta 100/25 Mcg Inh) 1 puffs INH DAILY [facility] Stop: 08/17/19 08:59 Last Admin: 07/18/19 09:36 Dose: 1 puffs Documented by: Pantoprazole Sodium 40 mg/ (Syringe) 10 mls @ 5 mls/min IV BID@0900,2100 [facility] Stop: 08/16/19 12:59 Last Admin: 07/18/19 09:38 Dose: 5 mls/min Documented by: Sodium Chloride (Nss 1000ml) 1,000 mls @ 80 mls/hr IV .[id number] [facility] Stop: 08/16/19 14:44 Last Admin: 07/18/19 03:30 Dose: 80 mls/hr Documented by: Morphine Sulfate (Morphine Sulfate) 2 mg IV Q3H PRN PRN Reason: Severe Pain Stop: 07/31/19 18:16 Ondansetron HCl (Zofran) 4 mg IV Q6H PRN PRN Reason: Nausea Stop: 08/16/19 14:37 Polyethylene Glycol/Electrolytes (Golytely) 8 dose PO TODAY@1800 [facility] Stop: 07/19/19 04:00 Umeclidinium [place] (Incruse Ellipta) 1 puffs INH QAM [facility] Stop: 08/17/19 08:59 Last Admin: 07/18/19 09:36 Dose: 1 puffs Documented by:
[2019-07-18] MEDS ORDERED: LAVAGE SOLUTION 4000ML PO SCH (18:00)
[2019-07-18] MEDS: ONDANSETRON INJ 2 MG/ML 2 ML VIAL IV PRN (21:10)
[2019-07-19] MEDS: ALUMINUM/MAGNESIUM SUSP 30 ML UDC PO SCH ×4 (00:41→18:51)
[2019-07-19] MEDS: MoRPHine SULFATE 2 MG/ML CARP IV PRN ×7 (00:41→22:13)
[2019-07-19] MEDS: SODIUM CHLORIDE 0.9% 1000ML 1,000 ML IV SCH ×2 (06:31→22:10)
[2019-07-19] MEDS: ALBUT/IPRATROP 3MG/0.5MG NEB 3 ML VIAL NEB SCH ×4 (07:11→19:09)
[2019-07-19 07:23] LABS: Basophils # (auto) 0.02 K/uL (0-0.2); Basophils % (auto) 0.5 %; Eosinophils # (auto) 0.08 K/uL (0-0.5); Eosinophils % (auto) 1.9 %; Hematocrit (blood only) 34.4 % (37-47); Hemoglobin 10.8 g/dL (12.0-16.0); Immature Granulocytes # (auto) 0.02 K/uL (0.00-0.02); Immature Granulocytes % (auto) 0.5 %; Lymphocytes % (auto) 39.6 %; Mean Corpuscular Hemoglobin 28.9 pg (25-34); Mean Corpuscular Hgb Conc 31.4 g/dL (32-36); Mean Platelet Volume 8.9 fL (7.4-10.4); Monocytes % (auto) 11.7 %; Neutrophils # (auto) 1.97 K/uL (1.4-6.5); Neutrophils % (auto) 45.8 %; Platelet Count 309 K/uL (130-400); RDW Coefficient of Variation 15.5 % (11.5-14.5); RDW Standard Deviation 52.6 fL (36.4-46.3); Red Blood Count 3.74 M/uL (4.2-5.4); White Blood Count 4.29 K/uL (4.8-10.8)
[2019-07-19] MEDS: FLUTICASONE/VILANTEROL 100/25MCG 14 PUFFS/INHALER INH SCH (07:30)
[2019-07-19] MEDS: ONDANSETRON INJ 2 MG/ML 2 ML VIAL IV PRN (07:31)
[2019-07-19] MEDS: UMECLIDINIUM BROMIDE 62.5MCG/BLISTER 7 PUFFS/INHALER INH SCH (07:31)
[2019-07-19 07:53] LABS: BUN Creatinine Ratio 6.1 (10-20); Calcium 8.9 mg/dl (8.5-10.1); Creatinine Clr Calc Pharmacy 81.4 ml/min; Est GFR (African American) 115.6; Est GFR (Non-African American) 99.8; Magnesium 1.8 mg/dl (1.8-2.4); Phosphorus 3.1 mg/dl (2.5-4.9); Potassium 3.6 mmol/L (3.5-5.1)
[2019-07-19] MEDS: PANTOprazole 40 MG in SYRINGE 0 ML IV SCH ×2 (09:01→22:11)
--- NOTE | 2019-07-19 10:36 | Gastroenterology Progress Note ---
Date of Service July 19, 2019 Assessment & Plan (1) Nausea vomiting and diarrhea: Plan for colonoscopy. Further recommendations to follow colonoscopy. Supervising Physician Co-Signing Physician Notes Attending attestation I have seen, examined this patient, and agree with the findings and above by our mid-level provider VALENTINA Patterson, with the following additions -Plan for colonoscopy today Subjective 07/19/2019 Ms. Estrada is a 58 yr old female admitted for nausea/vomiting/diarrhea. Reported coffee grounds emesis and BMs consisting of mucous and specks of blood. Hb 11.7->10.8 no transfusions. BUN 4. EGD 07/18 normal. Colonoscopy planned for today. Pt took most of the prep and is passing liquid BMs. All BMs documented w/o men tion of blood. Continues to c/o abdominal pain though says not vomiting since admission. Hemodynamically stable w/o electrolyte disturbances. Has COPD, wheezing on exam but no c/o SOB and Pulse O2 sat 93% with O2 at 2L. Pt reports current breathing/respiratory is her baseline. Review of Systems Review of Systems: ROS: Gen: Denies weakness, fevers, weight loss Eyes: No eye redness, or pain, no recent vision changes Resp: No SOB, no cough Cardio: No palpitations/irregular beats, no chest pain GI: See HPI : Denies pain on urination Skin: No jaundice, itching or new rashes Physical Exam Constitutional: WD/WN, vitals as above Eyes: PERRL, conjunctivae normal, anicteric sclerae ENMT: external ear and nose normal, oropharynx normal (O2 by NC) Neck: trachea midline, no thyromegaly Respiratory: normal respiratory effort Auscultation: + wheezes (mild to moderate, throughout); no crackles and no rales Cardiovascular: RRR, no murmur, no edema Gastrointestinal (Abdomen): Soft, non distended, no masses but reports very tender on palpation of the entire abdomen. Musculoskeletal: Head/Neck/Chest: + head abnormal to inspection Skin: no rashes, warm and dry Neurologic: PERRL, EOMI, accommodation nl, no face palsy, no dysarthria Lymphatic: no cervical or axillary lymphadenopathy Results & Data Vital Signs (Past 12 Hours) Vital Signs Temp Pulse Resp BP BP Pulse Ox 07/19/19 07:11 37.0 C 76 16 129/71 98 07/19/19 00:05 36.8 C 82 20 143/80 H 92 Laboratory Results WBC 4, Hb 10, Hct 37, Platets 347, Na 141, K 3.6, BUN 4, Cr 0.6, glucose 93. Diagnostic Findings CT With IV contrast 07/17/19: 1 . No evidence of bowel obstruction. No evidence of free air 2. Surgically absent appendix. No evidence of acute diverticulitis 3. Minor bladder wall thickening 4. No evidence of pathologic adenopathy 5. Surgically absent gallbladder
[2019-07-19] MEDS ORDERED: fentaNYL citrate 100 MCG/2 ML VIAL ONE (13:30)
[2019-07-19] MEDS ORDERED: PROPOFOL IV EMULSION 10 MG/ML 20 ML VIAL IV ONE ×2 (13:30→14:08)
[2019-07-19] MEDS ORDERED: LIDOCAINE HCL 2% 2 ML VIAL/AMP(20MG/ML) INFIL ONE (13:30)
--- NOTE | 2019-07-19 13:40 | Anesthesiology Consultation ---
Date of Service July 19, 2019 Assessment & Plan Chart Review Chart Review: Acceptable Risk for Surgery and Patient NOT seen in Pre Admission Testing Consults Requested none History Surgery Operation Date: 07/18/19 15:30 Proposed Procedures p Esophagogastroduodenoscopy Dr Renetta Jackson Operation Date: 07/19/19 17:30 Proposed Procedures p Colonoscopy Dr Renetta Jackson Height/Weight Height: 5 ft 1 in Weight: 59.6 kg Allergies Allergy/AdvReac Type Severity Reaction Status Date / Time amoxicillin Allergy Severe swell up Verified 07/18/19 11:14 cant breathe erythromycin base Allergy Severe swell up Verified 07/18/19 11:14 cant breathe gabapentin Allergy Severe Anaphylaxis, Verified 07/18/19 11:14 Numbness and Swelling of Face ibuprofen Allergy Severe swell up Verified 07/18/19 11:14 cant breathe ketorolac Allergy Severe swell up Verified 07/18/19 11:14 cant breathe moxifloxacin Allergy Severe Anaphylaxis Verified 07/18/19 11:14 naproxen Allergy Severe swell up Verified 07/18/19 11:14 cant breathe oxytetracycline Allergy Severe SWELLS UP Verified 07/18/19 11:14 AND CANT BREATH Penicillins Allergy Severe swell up Verified 07/18/19 11:14 cant breathe morphine Allergy Intermediate Rash and Verified 07/18/19 11:14 Itching Medications Home Medications Medication Instructions Recorded Confirmed Last Taken fluticasone propion-salmeterol 1 inh INHALATION BID 05/09/19 07/18/19 07/17/19 [Advair Diskus] acetaminophen [Tylenol Extra 500 mg PO QID PRN 06/23/19 07/18/19 07/17/19 06:00 Strength] amlodipine [Norvasc] 5 mg PO QAM 07/15/19 07/18/19 07/17/19 diphenhydramine HCl [Banophen] 25 mg PO TID 07/15/19 07/18/19 07/17/19 omeprazole 20 mg PO BID 07/15/19 07/18/19 07/17/19 tiotropium bromide [Spiriva with 1 cap INHALATION QAM 07/15/19 07/18/19 07/17/19 HandiHaler] Active Medications Generic Name Dose Route Start Last Admin Trade Name Freq PRN Reason Stop Dose Admin Acetaminophen 650 mg 07/17/19 14:38 07/18/19 19:13 Tylenol PO 08/16/19 14:37 650 mg Q4H PRN Administration pain/fever Al Hydrox/Mg Hydrox/Simethicone 15 ml 07/18/19 14:30 07/19/19 11:25 Maalox PO 08/17/19 14:29 Not Given Q6 VIKASH Albuterol 3 ml 07/17/19 15:00 07/19/19 11:18 Duoneb NEB 08/16/19 14:59 3 ml QIDR VIKASH Administration Amlodipine Besylate 5 mg 07/18/19 09:00 07/18/19 09:35 Norvasc PO 08/17/19 08:59 5 mg QAM VIKASH Administration Benzonatate 100 mg 07/18/19 03:35 07/18/19 03:53 Tessalon Perle PO 08/17/19 03:34 100 mg TID PRN Administration Cough Diphenhydramine HCl 12.5 mg 07/17/19 14:44 07/17/19 23:28 Benadryl IV 08/16/19 14:43 12.5 mg Q6H PRN Administration Itching Fluticasone/Vilanterol 1 puffs 07/18/19 09:00 07/19/19 07:30 Breo Ellipta 100/25 Mcg Inh INH 08/17/19 08:59 1 puffs DAILY VIKASH Administration Pantoprazole Sodium 40 mg/ 10 mls @ 5 mls/min 07/17/19 13:00 07/19/19 09:01 Syringe IV 08/16/19 12:59 5 mls/min BID@0900,2100 VIKASH Administration Sodium Chloride 1,000 mls @ 80 mls/hr 07/17/19 14:45 07/19/19 12:22 Nss 1000ml IV 08/16/19 14:44 0 mls/hr .[id number] VIKASH Infusion Morphine Sulfate 2 mg 07/18/19 14:12 07/19/19 11:24 Morphine Sulfate IV 07/31/19 18:16 2 mg Q3H PRN Administration Severe Pain Ondansetron HCl 4 mg 07/17/19 14:38 07/19/19 07:31 Zofran IV 08/16/19 14:37 4 mg Q6H PRN Administration Nausea Umeclidinium [place] 1 puffs 07/18/19 09:00 07/19/19 07:31 Incruse Ellipta INH 08/17/19 08:59 1 puffs QAM VIKASH Administration NPO Date Last Intake of Fluids: 07/19/19 Time Last Intake of Fluids: 00:00 Date Last Intake of Solids: 06/28/19 Time Last Intake of Solids: 23:59 Past Medical History Medical History C. difficile diarrhea COPD (chronic obstructive pulmonary disease) H pylori ulcer HTN (hypertension) Peptic ulcer disease (Inactive) Past Family History Family History Other Cancer Diabetes Heart disease Hypertension Past Surgical History Surgical History History of appendectomy History of cholecystectomy Hx of tonsillectomy (Resolved) Hx of tubal ligation (Resolved) Social History Smoking Status: Current every day smoker tobacco type: cigarettes Smoking cigarettes per day: 10 Hx Alcohol Use: No Hx Substance Use: No Physical Exam Vital Signs Last Vital Signs Temp 37.0 C 07/19/19 12:35 Pulse 97 H 07/19/19 12:35 Resp 20 07/19/19 12:35 BP 143/84 H 07/19/19 12:35 Pulse Ox 93 07/19/19 12:35 Testing Laboratory Results 07/19/19 07:02 07/19/19 07:02
[2019-07-19] MEDS ORDERED: ATROPINE SULFATE 0.1 MG/ML 10ML SYR IV PRN (13:42)
[2019-07-19] MEDS ORDERED: ePHEDrine sulfate 50 MG/ML AMP IV PRN (13:42)
--- NOTE | 2019-07-19 14:19 | GI REPORT ---
Patient Name: Telma Estrada Procedure Date: 07/19/2019 1:26 PM Date of : 1960 Admit Type: Inpatient Age: 58 Gender: Female Attending MD: Deniz Jackson MD Procedure: Colonoscopy Providers: Deniz Jackson MD Referring MD: Referred SelfJaciel Indications: Generalized abdominal pain Medicines: Monitored Anesthesia Care Complications: No immediate complications. Estimated blood loss: None. Estimated Blood Loss: Estimated blood loss was minimal. Procedure: Pre-Anesthesia Assessment: - Pre-Anesthesia Assessment: - Prior to the procedure, a History and Physical was performed, and patient medications, allergies and sensitivities were reviewed. The patient's tolerance of previous anesthesia was reviewed. Please see [employer] for complete details. - The risks and benefits of the procedure and the sedation options and risks were discussed with the patient. All questions were answered and informed consent was obtained. - Patient identification and proposed procedure were verified prior to the procedure by the physician and the nurse. The procedure was verified in the pre-procedure area in the procedure room. After obtaining informed consent, the endoscope was passed carefully and meticuously under direct vision and only advanced when the lumen was clearly identified, C02 insuflation was utilized throughout the entirity of the procedure. Throughout the procedure, the patient's blood pressure, pulse, and oxygen saturations were monitored continuously. After I obtained informed consent, the scope was passed under direct vision. Throughout the procedure, the patient's blood pressure, pulse, and oxygen saturations were monitored continuously. The scope was introduced through the anus and advanced to the terminal ileum, with identification of the appendiceal orifice and IC valve. The colonoscopy was performed without difficulty. The patient tolerated the procedure well. The quality of the bowel preparation was poor. Findings: Multiple small-mouthed diverticula were found in the sigmoid colon. Internal hemorrhoids were found during retroflexion. The terminal ileum appeared normal. Biopsies for histology were taken with a cold forceps from the entire colon for evaluation of microscopic colitis. Prep quality poor and not of extent to exclude polyps. Impression: - Preparation of the colon was poor. - Diverticulosis in the sigmoid colon. - Internal hemorrhoids. - The examined portion of the ileum was normal. - Biopsies were taken with a cold forceps from the entire colon for evaluation of microscopic colitis. Recommendation: - [facility] for ongoing care. - Given normal endoscopies and CT, this may be functional pain. Recommend antispasmodics and follow up pathology. - advance diet Deniz Jackson MD 07/19/2019 2:18:52 PM This report has been signed electronically. Note Initiated On: 07/19/2019 1:26 PM Number of Addenda: 0 I attest to the content of the Intraoperative Record and orders documented therein, exceptions below {[id number]}
[2019-07-19] MEDS: AMLODIPINE BESYLATE 5 MG TAB PO SCH (14:46)
--- NOTE | 2019-07-19 15:06 | Anesthesiology Progress Note ---
Date of Service July 19, 2019 Anesthesia Post Procedure Vital Signs Vital Signs: Temp Pulse Resp BP BP Pulse Ox 07/19/19 14:53 67 18 148/87 H 100 07/19/19 14:38 78 16 133/86 99 07/19/19 14:23 67 12 104/60 98 07/19/19 12:35 37.0 C 97 H 20 143/84 H 93 07/19/19 11:19 76 16 83 L 07/19/19 07:11 37.0 C 76 16 129/71 98 07/19/19 00:05 36.8 C 82 20 143/80 H 92 07/18/19 19:38 83 16 95 07/18/19 15:29 86 22 91 07/18/19 15:18 37.2 C 81 18 115/72 90 Pain Intensity Chest: Pain Intensity: 6 Bilateral Generalized: Pain Intensity: 7 Transfer of Care Handoff Completed per policy Notes Mental Status: alert / awake / arousable Patient Amnestic to Procedure: Yes Nausea / Vomiting: adequately controlled Pain: adequately controlled Airway Patency, RR, SpO2: stable & adequate BP & HR: stable & adequate Hydration State: stable & adequate Anesthetic Complications: no major complications apparent and Pt Satisfied with anesthetic care
--- NOTE | 2019-07-19 20:54 | Hospitalist Progress Note ---
Date of Service July 19, 2019 Assessment & Plan (1) Nausea vomiting and diarrhea: -Admit to [facility] -Patient presenting from home with reports of persistent abdominal pain, nausea, vomiting, diarrhea -As noted in HPI, patient has had several hospital admissions and ED visits for these complaints -Reporting coffee-ground emesis and bright red bleeding per rectum; Hgb stable at 11.5, CT ABD/pelvis negative for acute findings -PRN antiemetics, cautious use of narcotics due to concerns for drug-seeking behavior -GI on board -S/P EGD and Colonoscopy done -Diet advanced to full liquid -Will add bentyl (2) C. difficile diarrhea: -Positive C. difficile PCR on 06/25/2019 and 07/10/2019, negative C. difficile PCR 07/16/2019 -Per recent admission to [facility], patient is still to be on vancomycin taper however she reports she has completed this -Discussed with GI, will hold on further treatment at this time (3) H pylori ulcer: -Diagnosed 04/2019 via EGD biopsy -Has not completed therapy due to persistent nausea, vomiting, diarrhea -Treatment deferred to GI -Await biopsy (4) COPD (chronic obstructive pulmonary disease): -May have mild/early exacerbation given mild wheezing on exam -[id number] nebulizers for now, hold on steroids antibiotics -Advised to quit smoking -No signs of exacerbations (5) HTN (hypertension): -BP controlled, continue amlodipine (6) DVT prophylaxis: -SCDs due to possible GI bleeding Subjective Pt was seen and examined Sitting in chair with no distress with present She looks very comfortable Physical Exam Physical Exam: General- No acute distress Head- atraumatic Eyes- PERRL, EOMI, ENT- oropharynx clear Neck- supple, no JVD Lungs- clear to auscultation Heart- regular rhythm; no murmur Abdomen- normal bowel sounds, soft, +tender with palpation Extremities- no calf tenderness Neuro- alert, oriented x 3; PERRL, EOMI; no facial palsy; no dysarthria Skin- warm & dry Results & Data Vital Signs (Past 12 Hours) Vital Signs Temp Pulse Resp BP Pulse Ox 07/19/19 19:09 77 20 94 07/19/19 15:35 85 20 93 07/19/19 15:31 36.7 C 88 16 162/71 H 83 L 07/19/19 14:53 67 18 148/87 H 100 07/19/19 14:38 78 16 133/86 99 07/19/19 14:23 67 12 104/60 98 07/19/19 12:35 37.0 C 97 H 20 143/84 H 93 07/19/19 11:19 76 16 83 L
[2019-07-20] MEDS: ALUMINUM/MAGNESIUM SUSP 30 ML UDC PO SCH ×4 (00:19→17:13)
[2019-07-20] MEDS: MoRPHine SULFATE 2 MG/ML CARP IV PRN ×3 (01:15→07:54)
[2019-07-20] MEDS: SODIUM CHLORIDE 0.9% 1000ML 1,000 ML IV SCH (04:58)
[2019-07-20] MEDS: ALBUT/IPRATROP 3MG/0.5MG NEB 3 ML VIAL NEB SCH ×3 (07:02→15:05)
[2019-07-20] MEDS: PANTOprazole 40 MG in SYRINGE 0 ML IV SCH (07:54)
[2019-07-20] MEDS: UMECLIDINIUM BROMIDE 62.5MCG/BLISTER 7 PUFFS/INHALER INH SCH (07:54)
[2019-07-20] MEDS: AMLODIPINE BESYLATE 5 MG TAB PO SCH (07:54)
[2019-07-20] MEDS: ONDANSETRON INJ 2 MG/ML 2 ML VIAL IV PRN ×2 (07:54→15:37)
--- NOTE | 2019-07-20 08:06 | Anesthesiology Progress Note ---
Date of Service July 20, 2019 Anesthesia Post Procedure Vital Signs Vital Signs: Temp Pulse Resp BP Pulse Ox 07/20/19 07:28 36.6 C 78 18 131/76 95 07/20/19 07:04 74 18 96 07/19/19 23:01 36.6 C 79 20 118/77 93 07/19/19 19:09 77 20 94 07/19/19 15:35 85 20 93 07/19/19 15:31 36.7 C 88 16 162/71 H 83 L 07/19/19 14:53 67 18 148/87 H 100 07/19/19 14:38 78 16 133/86 99 07/19/19 14:23 67 12 104/60 98 07/19/19 12:35 37.0 C 97 H 20 143/84 H 93 07/19/19 11:19 76 16 83 L Pain Intensity Chest: Pain Intensity: 6 Bilateral Generalized: Pain Intensity: 7 Abdomen: Pain Intensity: 8 Notes Mental Status: alert / awake / arousable and participated in evaluation Patient Amnestic to Procedure: Yes Nausea / Vomiting: adequately controlled Pain: adequately controlled Airway Patency, RR, SpO2: stable & adequate BP & HR: stable & adequate Hydration State: stable & adequate Anesthetic Complications: no major complications apparent
[2019-07-20] MEDS ORDERED: MoRPHine SULFATE 2 MG/ML CARP IV PRN (08:09)
[2019-07-20] MEDS: FLUTICASONE/VILANTEROL 100/25MCG 14 PUFFS/INHALER INH SCH (09:02)
[2019-07-20] MEDS: TRAMADOL HCL 50 MG TABLET PO PRN ×2 (09:12→15:36)
[2019-07-20] MEDS: DICYCLOMINE HCL 10 MG CAP PO SCH ×2 (11:01→15:38)
--- NOTE | 2019-07-20 11:57 | GI REPORT ---
Patient Name: Telma Estrada Procedure Date: 07/18/2019 11:47 AM Date of : 1960 Admit Type: Inpatient Age: 58 Gender: Female Attending MD: Deniz Jackson MD Procedure: Upper GI endoscopy Providers: Deniz Jackson MD Referring MD: Referred Self Indications: Generalized abdominal pain Medicines: Monitored Anesthesia Care Complications: No immediate complications. Estimated blood loss: None. Estimated Blood Loss: Estimated blood loss: none. Procedure: Pre-Anesthesia Assessment: - Pre-Anesthesia Assessment: - Prior to the procedure, a History and Physical was performed, and patient medications, allergies and sensitivities were reviewed. The patient's tolerance of previous anesthesia was reviewed. Please see [employer] for complete details. - The risks and benefits of the procedure and the sedation options and risks were discussed with the patient. All questions were answered and informed consent was obtained. - Patient identification and proposed procedure were verified prior to the procedure by the physician and the nurse. The procedure was verified in the pre-procedure area in the procedure room. After obtaining informed consent, the endoscope was passed carefully and meticuously under direct vision and only advanced when the lumen was clearly identified, C02 insuflation was utilized throughout the entirity of the procedure. Throughout the procedure, the patient's blood pressure, pulse, and oxygen saturations were monitored continuously. After obtaining informed consent, the endoscope was passed under direct vision. Throughout the procedure, the patient's blood pressure, pulse, and oxygen saturations were monitored continuously. The Endoscope was introduced through the mouth, and advanced to the second part of duodenum. The upper GI endoscopy was accomplished without difficulty. The patient tolerated the procedure well. Findings: The examined esophagus was normal. The entire examined stomach was normal. Biopsies were taken with a cold forceps for histology. The examined duodenum was normal. Biopsies for histology were taken with a cold forceps for evaluation of celiac disease. Impression: - Normal esophagus. - Normal stomach. Biopsied. - Normal examined duodenum. Biopsied. Recommendation: - Await pathology results. - [facility]. - Continue present medications. Deniz Jackson MD 07/20/2019 11:57:25 AM This report has been signed electronically. Note Initiated On: 07/18/2019 11:47 AM Number of Addenda: 0 I attest to the content of the Intraoperative Record and orders documented therein, exceptions below {[id number]}
--- NOTE | 2019-07-20 16:28 | Hospitalist Progress Note ---
Date of Service July 20, 2019 Assessment & Plan (1) Nausea vomiting and diarrhea: -Admit to [facility] [place] -Patient presenting from home with reports of persistent abdominal pain, nausea, vomiting, diarrhea -As noted in HPI, patient has had several hospital admissions and ED visits for these complaints -Reporting coffee-ground emesis and bright red bleeding per rectum; Hgb stable at 11.5, CT ABD/pelvis negative for acute findings -PRN antiemetics, cautious use of narcotics due to concerns for drug-seeking behavior -GI on board -EGD done on 07/18/19 showed Normal esophagus. Normal stomach. Normal examined duodenum. -Colonoscopy done on 07/19/19 showed Multiple small-mouthed diverticula were found in the sigmoid colon. Internal hemorrhoids were found during retroflexion. The terminal ileum appeared normal. -Diet advanced to full liquid as tolerated -Continue Bentyl and Zofran - Biopsy result for the - EDG DUODENUM, BIOPSY: - DUODENAL MUCOSA WITH NO DIAGNOSTIC ABNORMALITY - NEGATIVE FOR HISTOLOGICAL FEATURES OF SPRUE - NEGATIVE FOR PARASITES - NEGATIVE FOR DYSPLASIA AND MALIGNANCY B. STOMACH, BIOPSY: - GASTRIC MUCOSA WITH VERY MILD CHRONIC INFLAMMATION - NEGATIVE FOR INTESTINAL METAPLASIA, DYSPLASIA AND MALIGNANCY - NEGATIVE FOR HELICOBACTER PYLORI ORGANISMS BY MORPHOLOGY COLON, RANDOM, BIOPSY: - BENIGN COLONIC MUCOSA - NEGATIVE FOR ACUTE AND CHRONIC COLITIS - NEGATIVE FOR MICROSCOPIC COLITIS - NEGATIVE FOR DYSPLASIA AND MALIGNANCY (2) C. difficile diarrhea: -Positive C. difficile PCR on 06/25/2019 and 07/10/2019, negative C. difficile PCR 07/16/2019 -Per recent admission to [facility], patient is still to be on vancomycin taper however she reports she has completed this -Discussed with GI, will hold on further treatment at this time (3) H pylori ulcer: -Diagnosed 04/2019 via EGD biopsy -Has not completed therapy due to persistent nausea, vomiting, diarrhea -Recent EGD showed negative for H Pylori (4) COPD (chronic obstructive pulmonary disease): -May have mild/early exacerbation given mild wheezing on exam -Ybkuxu-[id number] nebulizers for now, hold on steroids antibiotics -Advised to quit smoking -No signs of exacerbations -Had 2 step exercise done today and she does not require oxygen supplement -Counseling on smoking cessation (5) HTN (hypertension): -BP controlled, continue amlodipine (6) DVT prophylaxis: -SCDs due to possible GI bleeding Disposition -Possible discharge home today Subjective Pt was seen and examined Sitting in chair with no distress Pt said that she tolerated her full liquid diet She said that she had [place] yogurt that cause her to vomit because she does not eat [place] yogurt During the encounter she did not mention any abdominal pain Denies any chest pain, palpitation, dizziness and SOB Physical Exam Physical Exam: General- No acute distress Head- atraumatic Eyes- PERRL, EOMI, ENT- oropharynx clear Neck- supple, no JVD Lungs- clear to auscultation Heart- regular rhythm; no murmur Abdomen- normal bowel sounds, soft, +mild tender with palpation Extremities- no calf tenderness Neuro- alert, oriented x 3; PERRL, EOMI; no facial palsy; no dysarthria Skin- warm & dry Results & Data ([facility]) Vital Signs (Past 12 Hours) Vital Signs Temp Pulse Pulse Pulse Pulse Resp Resp 07/20/19 15:08 87 18 07/20/19 15:03 37.1 C 93 H 18 07/20/19 14:00 115 H 97 H 103 H 18 07/20/19 10:56 88 18 07/20/19 07:28 36.6 C 78 18 07/20/19 07:04 74 18 Resp Resp BP Pulse Ox Pulse Ox Pulse Ox Pulse Ox 07/20/19 15:08 92 07/20/19 15:03 128/76 91 07/20/19 14:00 18 18 89 L 90 91 07/20/19 10:56 92 07/20/19 07:28 131/76 95 07/20/19 07:04 96
[2019-07-20] MEDS ORDERED: PANTOprazole 40 MG TAB PO SCH (21:00)
--- NOTE | 2019-07-22 10:11 | Discharge Summary ---
Date of Service July 20, 2019 Admission HPI Per Admitting Provider 58 year old female who presents to the ED with complaints of abdominal pain, nausea, vomiting, and diarrhea. Patient has had multiple hospital admissions and ED visits over the past several weeks. History dates back to 04/2019 when patient was admitted to [facility] and diagnosed with H. pylori. Given patient's penicillin allergy, she was discharged on Flagyl, bismuth, PPI. Due to ongoing nausea, vomiting, diarrhea. Patient did not tolerate treatment for H. pylori. She was admitted to [facility] 06/24 through 07/01 and diagnosed with C. difficile. Patient was placed on p.o. vancomycin. She was readmitted to [facility] 07/04 through 06/27 for persistent abdominal pain, nausea, vomiting, diarrhea secondary to C. difficile. Once again patient was admitted to [facility] 07/10 through 07/13 for similar complaints however patient signed out AMA. On 07/15, patient was seen at [facility] ED, [facility], [facility] ED. She was seen again yesterday at [facility] ED for abdominal pain, nausea, vomiting, and diarrhea. Patient had an unremarkable workup and was discharged home. Noted that stool for C. diff and stool cultures were negative. Throughout all of these ED visits and hospital admissions, patient was also treated for COPD exacerbations with doxycycline and steroids. Patient reports upon arriving home she developed coffee ground emesis and bright red bleeding per rectum with diarrhea. She also describes bilious emesis. She reports abdominal pain is located mid abdomen and radiates into her back. Describes the pain as severe. She has chronic exertional shortness of breath and cough which is unchanged from baseline. No chest pain. She denies lightheadedness, dizziness, diaphoresis, syncopal events. No fevers or chills. She denies any urinary symptoms. In the ED today, labs are unremarkable as well as CT ABD/pelvis. Hemoglobin stable at 11.5. Patient was noted to have some wheezing on exam. She was mildly hypoxic on room air at 89%, this improved oxygen 3 L via nasal cannula. Patient was given nebulizer treatment, IV Dilaudid, IV Solu- Medrol, IV Zofran, IVF. Admission Exam Per Admitting Provider General: Well nourished, well hydrated, average body habitus, no acute distress Eyes: PERRL, conjunctivae normal, not pale, anicteric sclerae, EOM intact bilaterally ENMT: External ear and nose normal, oropharynx normal Neck: Normal visual inspection, no tracheal deviation, no swelling noted Respiratory: Normal respiratory effort, no respiratory distress, on nasal cannula at 2l/min, good air entry bilaterally, minimal expiratory rhonchi in lung bases, no crackles Cardiovascular: Pulse is RRR. S1 S2 no pedal edema Chest (Breasts): Chest: normal inspection of chest Gastrointestinal (Abdomen): Abdomen is not distended, soft, +Epigastric tenderness, no guarding, no palpable hepatosplenomegaly, normal bowel sounds Musculoskeletal: No cyanosis or clubbing, all extremities motor strength 5/5 Genitourinary: No CVA tenderness Skin: No rash noted on gross inspection, No ulcers noted Neurologic: Alert and oriented x 3, No focal weakness, sensation grossly intact Psychiatric: Euthymic affect, normal judgement Principal Diagnosis Nausea vomiting and diarrhea: C. difficile diarrhea: H pylori ulcer: COPD (chronic obstructive pulmonary disease): HTN (hypertension): Discharge Exam General- No acute distress Head- atraumatic Eyes- PERRL, EOMI, ENT- oropharynx clear Neck- supple, no JVD Lungs- clear to auscultation Heart- regular rhythm; no murmur Abdomen- normal bowel sounds, soft, +mild tender with palpation Extremities- no calf tenderness Neuro- alert, oriented x 3; PERRL, EOMI; no facial palsy; no dysarthria Skin- warm & dry Discharge Data Allergies Allergy/AdvReac Type Severity Reaction Status Date / Time amoxicillin Allergy Severe swell up Verified 07/18/19 11:14 cant breathe erythromycin base Allergy Severe swell up Verified 07/18/19 11:14 cant breathe gabapentin Allergy Severe Anaphylaxis, Verified 07/18/19 11:14 Numbness and Swelling of Face ibuprofen Allergy Severe swell up Verified 07/18/19 11:14 cant breathe ketorolac Allergy Severe swell up Verified 07/18/19 11:14 cant breathe moxifloxacin Allergy Severe Anaphylaxis Verified 07/18/19 11:14 naproxen Allergy Severe swell up Verified 07/18/19 11:14 cant breathe oxytetracycline Allergy Severe SWELLS UP Verified 07/18/19 11:14 AND CANT BREATH Penicillins Allergy Severe swell up Verified 07/18/19 11:14 cant breathe morphine Allergy Intermediate Rash and Verified 07/18/19 11:14 Itching Consultations 07/17/19 11:23 ED Decision to Admit Stat 07/17/19 14:38 Consult Gastroenterology Routine Procedures Performed Operation Date: 07/18/19 15:30 Actual Procedures p EGD Biopsy Cytology - Deniz Jackson Operation Date: 07/19/19 17:30 Actual Procedures p Colonoscopy Biopsy Cytology - Deniz Jackson Ordered Studies 07/17/19 08:58 CT abd pelvis IV con only Stat CT abd pelvis IV con only CLINICAL HISTORY: vomiting, abd pain COMPARISON STUDY: June 23, 2019 TECHNIQUE: The patient was scanned in a dynamic helical fashion during intravenous administration of 94 cc of Optiray 320. A dose lowering technique was utilized adhering to the principles of ALARA. CT DOSE: 254.72 mGy.cm FINDINGS: Lower chest: There is minor lower lobe bronchial wall thickening. There are minor basilar atelectatic changes. Liver: The contrast-enhanced liver is normal in size, contour, and attenuation. There is no intrahepatic biliary ductal dilatation. The hepatic veins and portal veins are patent. Gallbladder: Surgically absent Spleen: Normal in size and attenuation. Pancreas: Unremarkable. Adrenal glands: Unremarkable. Kidneys: There is symmetric renal cortical enhancement. The kidneys are normal in size without hydronephrosis. Bowel: There are no transition zones to indicate bowel obstruction. By history the appendix is surgically absent. There is no evidence of acute diverticulitis. Peritoneum: There is no intraperitoneal free air or abdominal ascites. Vasculature: The abdominal aorta is normal in course and caliber. Adenopathy: None. Pelvic viscera: There is minor bladder wall thickening. No pathologic adnexal masses are visualized. Skeletal structures: No destructive osseous lesions are seen. IMPRESSION: 1. No evidence of bowel obstruction. No evidence of free air 2. Surgically absent appendix. No evidence of acute diverticulitis 3. Minor bladder wall thickening 4. No evidence of pathologic adenopathy 5. Surgically absent gallbladder ACT 112: Negative or not required by law. Electronically signed by: Sly Montana M.D. 07/17/2019 10:30 AM Dictated: 07/17/19 1026 Transcribed: 07/17/19 1026 XR chest 1V portable CLINICAL HISTORY: Atypical chest pain COMPARISON STUDY: 07/15/2019 FINDINGS: The heart is normal in size. There is no failure. There is slight interstitial thickening at the lung bases. There are no pleural effusions. There is no lobar consolidation.[ IMPRESSION: Mild basilar interstitial thickening. No evidence of lobar consolidation. ACT 112: Negative or not required by law. Electronically signed by: Sly Montana M.D. 07/17/2019 9:35 AM Dictated: 07/17/19932 Transcribed: 07/17/19932 Hospital Course (1) Nausea vomiting and diarrhea: -Admit to [facility] -Patient presenting from home with reports of persistent abdominal pain, nausea, vomiting, diarrhea -As noted in HPI, patient has had several hospital admissions and ED visits for these complaints -Reporting coffee-ground emesis and bright red bleeding per rectum; Hgb stable at 11.5, CT ABD/pelvis negative for acute findings -PRN antiemetics, cautious use of narcotics due to concerns for drug-seeking behavior -GI on board -EGD done on 07/18/19 showed Normal esophagus. Normal stomach. Normal examined duodenum. -Colonoscopy done on 07/19/19 showed Multiple small-mouthed diverticula were found in the sigmoid colon. Internal hemorrhoids were found during retroflexion. The terminal ileum appeared normal. -Diet advanced to full liquid as tolerated -Continue Bentyl and Zofran - Biopsy result for the - EDG DUODENUM, BIOPSY: - DUODENAL MUCOSA WITH NO DIAGNOSTIC ABNORMALITY - NEGATIVE FOR HISTOLOGICAL FEATURES OF SPRUE - NEGATIVE FOR PARASITES - NEGATIVE FOR DYSPLASIA AND MALIGNANCY B. STOMACH, BIOPSY: - GASTRIC MUCOSA WITH VERY MILD CHRONIC INFLAMMATION - NEGATIVE FOR INTESTINAL METAPLASIA, DYSPLASIA AND MALIGNANCY - NEGATIVE FOR HELICOBACTER PYLORI ORGANISMS BY MORPHOLOGY COLON, RANDOM, BIOPSY: - BENIGN COLONIC MUCOSA - NEGATIVE FOR ACUTE AND CHRONIC COLITIS - NEGATIVE FOR MICROSCOPIC COLITIS - NEGATIVE FOR DYSPLASIA AND MALIGNANCY (2) C. difficile diarrhea: -Positive C. difficile PCR on 06/25/2019 and 07/10/2019, negative C. difficile PCR 07/16/2019 -Per recent admission to [facility], patient is still to be on vancomycin taper however she reports she has completed this -Discussed with GI, will hold on further treatment at this time (3) H pylori ulcer: -Diagnosed 04/2019 via EGD biopsy -Has not completed therapy due to persistent nausea, vomiting, diarrhea -Recent EGD showed negative for H Pylori (4) COPD (chronic obstructive pulmonary disease): -May have mild/early exacerbation given mild wheezing on exam -Kximqm-lct-ahocu nebulizers for now, hold on steroids antibiotics -Advised to quit smoking -No signs of exacerbations -Had 2 step exercise done today and she does not require oxygen supplement -Counseling on smoking cessation (5) HTN (hypertension): -BP controlled, continue amlodipine (6) DVT prophylaxis: -SCDs due to possible GI bleeding Disposition -Possible discharge home today Total Time Total Time Spent Total Time Spent (In Minutes): 35 minutes Total Time Includes: Examination of the Patient, Discharge Planning, Medication Reconciliation, Communication With Other Providers and Other Discharge Plan Discharge Items Patient Disposition: Home - Self-Care Reason For Visit: COPD EXACERBATION, ABD. PAIN, N/V Discharge Diagnosis: Nausea vomiting and diarrhea: C. difficile diarrhea: H pylori ulcer: COPD (chronic obstructive pulmonary disease): HTN (hypertension): Activity: Resume your previous activity Non-emergency contact: Primary Care Provider and Field Services Director Call non-emergency contact if: you have any medication questions Follow-up/Referrals: Lupe Childs PA-C [Primary Care Provider] - 07/26/19 10:55 am Diet: Low Fiber Addtl Attending Provider Instructions: Follow up with your primary care provider Lupe Childs PA-C on 07/26/19 @ 10:55 AM Follow up with gastroenterology Continue soft diet for now, then advanced slowly as tolerated Please hold next dose of tramadol if you become drowsy and lethargy Do not drive or use any machine after using the Tramadol Counseling on smoking cessation Pending Studies at Discharge: No Stand-Alone Forms: Call Back Authorization, [facility], Smoking Cessation Medications and DC Order Prescriptions: New tramadol 50 mg Tablet 50 mg PO Q8H PRN (Reason: pain) Qty: 12 RF: 0 dicyclomine 10 mg Capsule 10 mg PO Q8H Qty: 30 RF: 0 ondansetron HCl [Zofran] 4 mg tablet 4 mg PO Q8H PRN (Reason: nausea and vomiting) Qty: 30 RF: 0 Continued fluticasone propion-salmeterol [Advair Diskus] 250-50 mcg/dose Blister With Device 1 inh INHALATION BID RF: 0 acetaminophen [Tylenol Extra Strength] 500 mg Tablet 500 mg PO QID PRN (Reason: Pain) RF: 0 diphenhydramine HCl [Banophen] 25 mg capsule 25 mg PO TID RF: 0 omeprazole 20 mg capsule,delayed release(DR/EC) 20 mg PO BID RF: 0 Spiriva with HandiHaler 18 mcg capsule, w/inhalation device 1 cap INHALATION QAM RF: 0 amlodipine [Norvasc] 5 mg tablet 5 mg PO QAM RF: 0 Discharge Orders: Discharge Order (Routine); Ordered 07/20/19 Ordered By: Maribel Egan Admission Data Admit Date/Time: 07/17/19 12:09 Attending Provider: Maribel Egan Admit Provider: Valentina Dean I. Primary Care Provider: Lupe Childs Other Providers: Valentina Dean I. ; Deniz Jackson ; Jaciel Olivares Other Interventions: Discharge Summary Assessment (RN) Last Done: 07/20/19 18:02 DC Date/Time DO NOT enter until pt leaves facility: 07/20/19 18:28
--- NOTE | 2019-07-24 12:27 | Coding Query ---
CODING QUERY To promote full compliance with coding requirements relating to patient care, provider participation is requested in all cases of diet clerk uncertainty. Please assist us with the question(s) below: Coding Question(s): Patient admitted with nausea,vomiting, and abdominal pain. EGD with biopsy negative; Colonoscopy showed diverticulosis. Plesae document, if known or suspected the etiology of the nausea, vomiting,diarrhea and abdominal pain. Thanks for your help! Fna Lopez [facility] Physician's Response(s): Unknown etiology Principal Diagnosis: "that condition established after study, to be chiefly responsible for occasioning the admission of the patient to the hospital for care." Co-Existing Principal Diagnosis: "when two or more diagnoses equally meet the criteria for principal diagnosis as determined by the circumstances of admission, diagnostic work up, and/or therapy provided, and the Alphabetic Index, Tabular List, or another coding guideline does not provide sequencing direction, any one of the diagnoses may be sequenced first." "When the physician has documented what appears to be a current diagnosis in the body of the record, but has not included the diagnosis in the final diagnostic statement, the physician should be asked whether the diagnosis should be added." ([facility] 2 QTR90. p3-4) DAVID
--- NOTE | 2019-07-26 11:14 | Anesthesiology Progress Note ---
Date of Service July 26, 2019 Anesthesia Post Procedure Pain Intensity Chest: Pain Intensity: 6 Bilateral Generalized: Pain Intensity: 7 Abdomen: Pain Intensity: 8 Transfer of Care Handoff Completed per policy Notes Mental Status: alert / awake / arousable Patient Amnestic to Procedure: Yes Nausea / Vomiting: adequately controlled Pain: adequately controlled Airway Patency, RR, SpO2: stable & adequate BP & HR: stable & adequate Hydration State: stable & adequate Anesthetic Complications: no major complications apparent and Pt Satisfied with anesthetic care
== END 2019-07-20 18:28 | disposition home or self-care (01) | DRG 378 ==
LOC: ED 08:38 → SUATTDRO 12:09 → 4W 14:05